=== PATIENT | male | born 1940 | race African-American/Black ===

== ENCOUNTER 2016-12-29 04:29 | Inpatient (IN) | payer OTHER, MEDICARE ==
[2016-12-29] VITALS (8 sets, daily range): BP systolic 140–164; BP diastolic 79–95; PULSE 62–88; RESP 16–18; TEMP 98–98.9; O2SAT 94–99
[~2016-12-29] VITALS: Ht 162.6 cm; Wt 95.5 kg
[~2016-12-29 04:29] MED LIST: AMLO10 PO; CLON0.2T PO; GLYB1TAB51 PO; LISI2.5T55 PO; MEVA40TA PO; PIOG30 PO; PROT40TA PO; TRAM50 PO; VITA-13 PO
[2016-12-29 05:24] LABS: AUTOMATED NEUTROPHIL # 3.9 TH/MM3 (1.8-7.7); BASOPHIL # 0.1 TH/MM3 (0-0.2); BASOPHIL % 1.2 % (0.0-2.0); EOSINOPHIL # 0.6 TH/MM3 (0-0.4); EOSINOPHIL % 7.7 % (0.0-4.0); LYMPH % 25.6 % (9.0-44.0); MEAN CELL VOLUME 85.1 FL (80.0-100.0); MEAN CORPUSCULAR HEMOGLOBIN 29.1 PG (27.0-34.0); MEAN CORPUSCULAR HGB CONC 34.2 % (32.0-36.0); MONO % 14.8 % (0.0-8.0); NEUT % 50.7 % (16.0-70.0); PLATELET COUNT 150 TH/MM3 (150-450); RED BLOOD COUNT 4.93 MIL/MM3 (4.50-5.90); RED CELL DISTRIBUTION WIDTH 14.4 % (11.6-17.2); WHITE BLOOD COUNT 7.8 TH/MM3 (4.0-11.0)
[2016-12-29 05:30] LABS: HEMO FLAGS AUTO DIFF
[2016-12-29 05:48] LABS: CREATINE KINASE 272 U/L (39-308)
[2016-12-29 05:54] LABS: ANION GAP 9 MEQ/L (5-15); BICARBONATE 25.2 MEQ/L (21.0-32.0); BLOOD UREA NITROGEN 22 MG/DL (7-18); CHLORIDE 106 MEQ/L (98-107); GLOMERULAR FILTRATION RATE 48 ML/MIN (>89); POTASSIUM 4.3 MEQ/L (3.5-5.1); SODIUM (NA) 140 MEQ/L (136-145)
[2016-12-29 05:56] LABS: APTT (PATIENT) 63.4 SEC (24.3-30.1); PROTHROMBIN TIME - PATIENT 96.8 SEC (9.8-11.6)
[2016-12-29 06:00] LABS: CKMB 3.1 NG/ML (0.5-3.6)
[2016-12-29 06:05] LABS: PLATELET ESTIMATE SMEAR LOW (NORMAL); PLATELET MORPHOLOGY NORMAL (NORMAL); SCAN/DIFF AUTO DIFF CONFIRMED
[2016-12-29] MEDS ORDERED: AMLO10 PO (06:13)
[2016-12-29] MEDS ORDERED: TRAM50TA PO (06:13)
[2016-12-29] MEDS ORDERED: CLON0.2T PO (06:13)
[2016-12-29] MEDS ORDERED: GLYB5TAB3 PO (06:13)
[2016-12-29] MEDS ORDERED: LOVA40TA PO (06:13)
--- NOTE | 2016-12-29 06:37 | PD ---
HPI Chief Complaint: Cardiac Complaint Time Seen by Provider: 06:24 Travel History International Travel<30 days: No Contact w/Intl Traveler<30days: No Traveled to known affect area: No History of Present Illness HPI The patient is 76 years old. He arrives due to irregular heart rhythm identified by a visiting nurse at home couple days ago. He reports a tightness in his chest. He also reports dyspnea on exertion for the past few days. States the chest pain has been intermittent for about 3 weeks. This progressively worsened. His level of activity has been normal lately, frequently taking his grandchildren to school and watching them at times. He's had no fever or cough. He denies taking any blood thinner. PFSH Past Medical History Arthritis: Yes Cancer: No Cardiovascular Problems: Yes High Cholesterol: Yes Diabetes: Yes (TRADJENTA/GLIMEPIRIDE) Patient Takes Glucophage: No Diminished Hearing: No Diverticulitis: Yes Endocrine: Yes Genitourinary: Yes (OCCASSIONAL BURNING WHEN VOIDING) Hypertension: Yes Immune Disorder: No Implanted Vascular Access Dvce: No Musculoskeletal: Yes Neurologic: Yes Psychiatric: Yes (CLAUSTROPHOBIA) Reproductive: No Respiratory: Yes Immunizations Current: No Sleep Apnea: Yes (C PAP) Past Surgical History Abdominal Surgery: Yes (COLON RESECTION R/T DIVERTICULITIS ) Joint Replacement: Yes (LEFT KNEE) Other Surgery: Yes Social History Alcohol Use: No Tobacco Use: No Substance Use: No Allergies-Medications (Allergen,Severity, Reaction): Coded Allergies: Codeine (Verified Allergy, Severe, 12/29/16) Reported Meds & Prescriptions Reported Meds & Active Scripts Active Reported Norvasc (Amlodipine Besylate) 10 Mg Tab 10 Mg PO DAILY Tramadol (Tramadol HCl) 50 Mg Tab 50 Mg PO Q6H PRN Lovastatin 40 Mg Tab 40 Mg PO DAILY Glyburide 5 Mg Tab 5 Mg PO BID Take with meals at the same time each day Clonidine (Clonidine HCl) 0.2 Mg Tab 0.2 Mg PO BID Review of Systems Except as stated in HPI: all other systems reviewed are Neg Physical Exam Narrative GENERAL: 76 yo M, WNWD, pleasant, NAD SKIN: Warm and dry. HEAD: Atraumatic. Normocephalic. EYES: Pupils equal and round. No scleral icterus. No injection or drainage. ENT: No nasal bleeding or discharge. Mucous membranes pink and moist. NECK: Trachea midline. No JVD. CARDIOVASCULAR: Irregular rhythm. Normal rate. RESPIRATORY: No accessory muscle use. Clear to auscultation. Breath sounds equal bilaterally. GASTROINTESTINAL: Abdomen soft, non-tender, nondistended. Hepatic and splenic margins not palpable. MUSCULOSKELETAL: Extremities without clubbing, cyanosis, or edema. No obvious deformities. NEUROLOGICAL: Awake and alert. No obvious cranial nerve deficits. Motor grossly within normal limits. Five out of 5 muscle strength in the arms and legs. Normal speech. PSYCHIATRIC: Appropriate mood and affect; insight and judgment normal. Data Data Last Documented VS Vital Signs Date Time Temp Pulse Resp B/P Pulse Ox O2 Delivery O2 Flow Rate FiO2 12/29/16 07:22 62 16 157/91 97 Room Air 12/29/16 04:33 98.0 VS reviewed Orders Electrocardiogram (12/29/16 04:49) Complete Blood Count With Diff (12/29/16 04:49) Basic Metabolic Panel (Bmp) (12/29/16 04:49) Ckmb (Isoenzyme) Profile (12/29/16 04:49) Troponin I (12/29/16 04:49) Chest, Single Ap (12/29/16 04:49) Coag Profile (12/29/16 04:49) CKMB (12/29/16 05:14) CKMB% (12/29/16 05:14) B-Type Natriuretic Peptide (12/29/16 06:39) Hepatic Functional Panel (12/29/16 07:33) Labs Laboratory Tests Test 12/29/16 12/29/16 05:14 06:51 White Blood Count 7.8 TH/MM3 Red Blood Count 4.93 MIL/MM3 Hemoglobin 14.4 GM/DL Hematocrit 42.0 % Mean Corpuscular Volume 85.1 FL Mean Corpuscular Hemoglobin 29.1 PG Mean Corpuscular Hemoglobin 34.2 % Concent Red Cell Distribution Width 14.4 % Platelet Count 150 TH/MM3 Mean Platelet Volume 8.5 FL Neutrophils (%) (Auto) 50.7 % Lymphocytes (%) (Auto) 25.6 % Monocytes (%) (Auto) 14.8 % Eosinophils (%) (Auto) 7.7 % Basophils (%) (Auto) 1.2 % Neutrophils # (Auto) 3.9 TH/MM3 Lymphocytes # (Auto) 2.0 TH/MM3 Monocytes # (Auto) 1.1 TH/MM3 Eosinophils # (Auto) 0.6 TH/MM3 Basophils # (Auto) 0.1 TH/MM3 CBC Comment AUTO DIFF Differential Comment AUTO DIFF CONFIRMED Platelet Estimate LOW Platelet Morphology Comment NORMAL Red Cell Morphology Comment NORMAL Prothrombin Time 96.8 SEC Prothromb Time International 8.0 RATIO Ratio Activated Partial 63.4 SEC Thromboplast Time Sodium Level 140 MEQ/L Potassium Level 4.3 MEQ/L Chloride Level 106 MEQ/L Carbon Dioxide Level 25.2 MEQ/L Anion Gap 9 MEQ/L Blood Urea Nitrogen 22 MG/DL Creatinine 1.68 MG/DL Estimat Glomerular Filtration 48 ML/MIN Rate Random Glucose 231 MG/DL Calcium Level 9.7 MG/DL Total Creatine Kinase 272 U/L Creatine Kinase MB 3.1 NG/ML Troponin I 0.03 NG/ML B-Type Natriuretic Peptide 207 PG/ML MDM Medical Decision Making Medical Screen Exam Complete: Yes Emergency Medical Condition: Yes Medical Record Reviewed: Yes Differential Diagnosis NSTEMI, unstable angina, coronary vasospasm, PE, PTX, aortic dissection, pericarditis, myocarditis, endocarditis, PNA, esophageal disease, aneurysm, musculoskeletal etiologies, anxiety, cocaine/sympathomimetic abuse Narrative Course CBC & BMP Diagram 12/29/16 05:14 INR is 8.0 and the patient does not take Coumadin BMP has been added on given the complaints of dyspnea on exertion The troponin is 0.03 The EKG reveals patient fibrillation with a rate of about 55 Oncoming provider to follow-up the repeat INR as well as the BNP and disposition the patient appropriately with plan for admission. Pravin Ray MD Dec 29, 2016 06:37
--- NOTE | 2016-12-29 06:40 | RADRPT ---
EXAM DATE/TIME: 12/29/2016 06:24 [facility] COMPARISON: CHEST SINGLE AP, January 15, 2010, 12:09. INDICATIONS : Chest pain. MEDICAL HISTORY : Diabetes. SURGICAL HISTORY : None. ENCOUNTER: Initial ACUITY: 1 day PAIN SCORE: 0/10 LOCATION: Bilateral chest FINDINGS: Cardiomegaly and degenerative changes of the spine. No consolidation identified. No effusions. CONCLUSION: No significant change has occurred. Cameron Swenson MD on December 29, 2016 at 6:37 Board Certified Radiologist. This report was verified electronically.
[2016-12-29 09:24] LABS: INDIRECT BILIRUBIN 0.2 MG/DL (0.0-0.8); TOTAL BILIRUBIN ADULT 0.4 MG/DL (0.2-1.0)
--- NOTE | 2016-12-29 09:28 | PD ---
Data Data Last Documented VS Vital Signs Date Time Temp Pulse Resp B/P Pulse Ox O2 Delivery O2 Flow Rate FiO2 12/29/16 08:20 62 16 152/79 97 Room Air 12/29/16 04:33 98.0 Orders Electrocardiogram (12/29/16 04:49) Complete Blood Count With Diff (12/29/16 04:49) Basic Metabolic Panel (Bmp) (12/29/16 04:49) Ckmb (Isoenzyme) Profile (12/29/16 04:49) Troponin I (12/29/16 04:49) Chest, Single Ap (12/29/16 04:49) Coag Profile (12/29/16 04:49) CKMB (12/29/16 05:14) CKMB% (12/29/16 05:14) B-Type Natriuretic Peptide (12/29/16 06:39) Hepatic Functional Panel (12/29/16 07:33) Prothrombin Time / Inr (Pt) (12/29/16 09:28) Labs Laboratory Tests Test 12/29/16 12/29/16 05:14 06:51 White Blood Count 7.8 TH/MM3 Red Blood Count 4.93 MIL/MM3 Hemoglobin 14.4 GM/DL Hematocrit 42.0 % Mean Corpuscular Volume 85.1 FL Mean Corpuscular Hemoglobin 29.1 PG Mean Corpuscular Hemoglobin 34.2 % Concent Red Cell Distribution Width 14.4 % Platelet Count 150 TH/MM3 Mean Platelet Volume 8.5 FL Neutrophils (%) (Auto) 50.7 % Lymphocytes (%) (Auto) 25.6 % Monocytes (%) (Auto) 14.8 % Eosinophils (%) (Auto) 7.7 % Basophils (%) (Auto) 1.2 % Neutrophils # (Auto) 3.9 TH/MM3 Lymphocytes # (Auto) 2.0 TH/MM3 Monocytes # (Auto) 1.1 TH/MM3 Eosinophils # (Auto) 0.6 TH/MM3 Basophils # (Auto) 0.1 TH/MM3 CBC Comment AUTO DIFF Differential Comment AUTO DIFF CONFIRMED Platelet Estimate LOW Platelet Morphology Comment NORMAL Red Cell Morphology Comment NORMAL Prothrombin Time 96.8 SEC Prothromb Time International 8.0 RATIO Ratio Activated Partial 63.4 SEC Thromboplast Time Sodium Level 140 MEQ/L Potassium Level 4.3 MEQ/L Chloride Level 106 MEQ/L Carbon Dioxide Level 25.2 MEQ/L Anion Gap 9 MEQ/L Blood Urea Nitrogen 22 MG/DL Creatinine 1.68 MG/DL Estimat Glomerular Filtration 48 ML/MIN Rate Random Glucose 231 MG/DL Calcium Level 9.7 MG/DL Total Bilirubin 0.4 MG/DL Direct Bilirubin 0.2 MG/DL Indirect Bilirubin 0.2 MG/DL Aspartate Amino Transf 16 U/L (AST/SGOT) Alanine Aminotransferase 27 U/L (ALT/SGPT) Alkaline Phosphatase 124 U/L Total Creatine Kinase 272 U/L Creatine Kinase MB 3.1 NG/ML Troponin I 0.03 NG/ML Total Protein 7.4 GM/DL Albumin 3.5 GM/DL B-Type Natriuretic Peptide 207 PG/ML MDM Supervised Visit with [place]: No Narrative Course This 76-year-old male presents to the emergency department complaining of tightness in his chest, dyspnea on exertion, and irregular heart rate. Initially seen by Dr. Ray and signed out to me to follow-up on the results of diagnostic testing. EKG shows atrial fibrillation. This is new for the patient. No significant change. Labs are remarkable for an elevated INR. Patient is emphatic that he does not take any blood thinners. He is able to name all of his medications. We'll recheck INR. Patient will be admitted for serial cardiac enzymes, and further evaluation for chest pain and dyspnea on exertion. INR may be spurious. Liver tests are unremarkable. Diagnosis Primary Impression: Chest pain Additional Impression: Dyspnea on exertion Nraayan Lucero MD Dec 29, 2016 09:28
[2016-12-29] MEDS: METOPROLOL TARTRATE 25 MG TAB PO SCH ×2 (10:00→22:01)
[2016-12-29] MEDS ORDERED: SODIUM CHLORIDE 0.9% FLUSH 10 ML FLUSH IVF PRN (10:00)
[2016-12-29] MEDS: ASPIRIN 81 MG CHEW TAB PO SCH (10:00)
[2016-12-29] MEDS ORDERED: NITROGLYCERIN 0.4 MG SL 25 TABS/BTL SL PRN (10:00)
[2016-12-29] MEDS ORDERED: MORPHINE SULFATE 4 MG/ML INJ IV PRN (10:00)
[2016-12-29 10:07] LABS: INTERNATIONAL NORMALIZED RATIO 1.1 RATIO
[2016-12-29] MEDS: SODIUM CHLOR 0.9% 1000 ML INJ 1,000 ML IV SCH ×2 (10:35→21:55)
[2016-12-29] MEDS: NITROGLYCERIN 2% OINT 1 GM PACKET TOP SCH ×3 (12:00→23:52)
[2016-12-29] MEDS ORDERED: DEXTROSE 50% IN WATER 50 ML VIAL(D50) IV PUSH PRN ×2 (12:45→17:30)
[2016-12-29] MEDS ORDERED: GLUCAGON 1 MG/ML VIAL OTHER PRN ×2 (12:45→17:30)
[2016-12-29] MEDS ORDERED: REGADENOSON INJ 0.4 MG/5 ML SYR ONE (13:48)
--- NOTE | 2016-12-29 13:56 | HHI.HP ---
[facility] Primary Care Physician Rena Cárdenas MD Admission Diagnosis chest pain, dyspnea on exertion Diagnoses: Chief Complaint: Chest pain Travel History International Travel<30 Days: No Contact w/Intl Traveler <30 Da: No Traveled to Known Affected Are: No History of Present Illness This is a 76-year-old male with a past medical history of hypertension, type 2 diabetes, and hyperlipidemia who presented with chest pain. Patient stated that he was seen prior and clinic and stated that he complained about having severe tremors when he does not eat for days. Patient stated that he wouldn't eat for days and it would have tremors that improved with by mouth intake. Patient stated that when this happens he would have chest pain and chest pain usually resolves with food. Chest pain has been intermittent with these episodes but he stated that today it was longer. Patient stated that it had occurred since yesterday and had not resolved. Patient stated he took some aspirin and medication for his headache which did help the chest pain. He stated nothing made the chest pain worse. Chest pain was nonradiating and he rated it about 3 out of 10 at the moment. He denies any nausea vomiting or diaphoresis with this chest pain. Patient also stated that he presented to the emergency department because he was told by his nurse that he had atrial fibrillation that we discover a week ago and asked why he is here. Patient stated that he has no family history of cardiovascular disease but does admit that almost all family members have diabetes. Patient stated he stopped smoking cigar 15 years ago. Review of Systems Constitutional: DENIES: Diaphoretic episodes, Fatigue, Fever, Weight gain, Weight loss, Chills, Dizziness, Change in appetite, Night Sweats Endocrine: DENIES: Heat/cold intolerance, Polydipsia, Polyuria, Polyphagia Eyes: DENIES: Blurred vision, Diplopia, Eye inflammation, Eye pain, Vision loss , Photosensitivity, Double Vision Ears, nose, mouth, throat: DENIES: Tinnitus, Hearing loss, Vertigo, Nasal discharge, Oral lesions, Throat pain, Hoarseness, Ear Pain, Running Nose, Epistaxis, Sinus Pain, Toothache, Odynophagia Respiratory: DENIES: Apneas, Cough, Snoring, Wheezing, Hemoptysis, Sputum production, Shortness of breath Cardiovascular: COMPLAINS OF: Chest pain, DENIES: Palpitations, Syncope, Dyspnea on Exertion, PND, Lower Extremity Edema, Orthopnea, Claudication Gastrointestinal: DENIES: Abdominal pain, Black stools, Bloody stools, Constipation, Diarrhea, Nausea, Vomiting, Difficulty Swallowing, Anorexia Genitourinary: DENIES: Sexual dysfunction, Urinary frequency, Urinary incontinence, Urgency, Hematuria, Dysuria, Nocturia, Penile Discharge, Testicular Pain, Testicular Swelling Musculoskeletal: DENIES: Joint pain, Muscle aches, Stiffness, Joint Swelling, Back pain, Neck pain Integumentary: DENIES: Abnormal pigmentation, Nail changes, Pruritus, Rash Hematologic/lymphatic: DENIES: Bruising, Lymphadenopathy Immunologic/allergic: DENIES: Eczema, Urticaria Neurologic: DENIES: Abnormal gait, Headache, Localized weakness, Paresthesias, Seizures, Speech Problems, Tremor, Poor Balance Psychiatric: DENIES: Anxiety, Confusion, Mood changes, Depression, Hallucinations, Agitation, Suicidal Ideation, Homicidal Ideation, Delusions Past Family Social History Past Medical History Hyperlipidemia, type 2 diabetes, hypertension, osteoarthritis, history diverticulitis Past Surgical History vasectomy Partial colectomy due to diverticulitis Reported Medications Reported Meds & Active Scripts Active Reported Norvasc (Amlodipine Besylate) 10 Mg Tab 10 Mg PO DAILY Tramadol (Tramadol HCl) 50 Mg Tab 50 Mg PO Q6H PRN Lovastatin 40 Mg Tab 40 Mg PO DAILY Glyburide 5 Mg Tab 5 Mg PO BID Take with meals at the same time each day Clonidine (Clonidine HCl) 0.2 Mg Tab 0.2 Mg PO BID Allergies: Coded Allergies: Codeine (Verified Allergy, Severe, 12/29/16) Active Ordered Medications Current Medications Sodium Chloride (NS Flush) 2 ml BID IV FLUSH ; Start 12/29/16 at 21:00 Sodium Chloride (NS Flush) 2 ml UNSCH PRN IVF FLUSH AFTER USING IV ACCESS; Start 12/29/16 at 10:00 Aspirin (Aspirin Chew) 162 mg DAILY PO ; Start 12/29/16 at 10:00 Metoprolol Tartrate (Lopressor) 25 mg BID PO ; Start 12/29/16 at 10:00 Nitroglycerin (Nitroglycerin 2% Oint) 0.5 inch Q6HR TOP ; Start 12/29/16 at 12: 00 Nitroglycerin (Nitrostat Sl) 0.4 mg Q5M PRN SL ANGINA; Start 12/29/16 at 10:00 Morphine Sulfate 2 mg 2 mg Q5M PRN IV PAIN SCALE 6 TO 10; Start 12/29/16 at 10: 00 Sodium Chloride (NS 1000 ml Inj) 1,000 ml @ 84 mls/hr [id number] IV Last administered on 12/29/16t 10:35; Start 12/29/16 at 10:00 Amlodipine Besylate (Norvasc) 10 mg DAILY PO ; Start 12/30/16 at 09:00 Clonidine (Catapres) 0.2 mg BID PO ; Start 12/29/16 at 21:00 Pravastatin Sodium (Pravachol) 40 mg DAILY PO ; Start 12/30/16 at 09:00 Tramadol HCl (Ultram) 50 mg Q6H PRN PO PAIN; Start 12/29/16 at 12:45 Dextrose (D50w (Vial) Inj) 25 ml UNSCH PRN IV PUSH HYPOGLYCEMIA-SEE COMMENTS; Start 12/29/16 at 12:45 Glucagon (Glucagon Inj) 1 mg UNSCH PRN OTHER HYPOGLYCEMIA-SEE COMMENTS; Start 12/29/16 at 12:45 Regadenoson (Lexiscan Inj) 0.4 mg STK-MED ONCE .ROUTE ; Start 12/29/16 at 13:48 ; Stop 12/29/16 at 13:49; Status DC Family History Multiple family members with diabetes. No family history of cardiovascular disease or any cancer. Social History Denies any tobacco, alcohol, or illicit drug use. Physical Exam Vital Signs Vital Signs Date Time Temp Pulse Resp B/P Pulse Ox O2 Delivery O2 Flow Rate FiO2 12/29/16 11:20 79 16 164/95 97 Room Air 12/29/16 08:20 62 16 152/79 97 Room Air 12/29/16 07:22 62 16 157/91 97 Room Air 12/29/16 06:13 88 18 146/81 99 Room Air 12/29/16 04:33 98.0 79 16 141/80 99 Room Air Physical Exam GENERAL: This is a well-nourished, well-developed patient, in no apparent distress. SKIN: No rashes, ecchymoses or lesions. Cool and dry. HEAD: Atraumatic. Normocephalic. No temporal or scalp tenderness. EYES: Pupils equal round and reactive. Extraocular motions intact. No scleral icterus. No injection or drainage. ENT: Nose without bleeding, purulent drainage or septal hematoma. Throat without erythema, tonsillar hypertrophy or exudate. Uvula midline. Airway patent. NECK: Trachea midline. No JVD or lymphadenopathy. Supple, nontender, no meningeal signs. CARDIOVASCULAR: Regular rate and rhythm without murmurs, gallops, or rubs. RESPIRATORY: Clear to auscultation. Breath sounds equal bilaterally. No wheezes , rales, or rhonchi. GASTROINTESTINAL: Abdomen soft, non-tender, nondistended. No hepato-splenomegaly , or palpable masses. No guarding. MUSCULOSKELETAL: Extremities without clubbing, cyanosis, or edema. No joint tenderness, effusion, or edema noted. No calf tenderness. Negative Homans sign bilaterally. NEUROLOGICAL: Awake and alert. Cranial nerves II through XII intact. Motor and sensory grossly within normal limits. Five out of 5 muscle strength in all muscle groups. Normal speech. Laboratory Laboratory Tests Test 12/29/16 12/29/16 12/29/16 05:14 06:51 09:40 White Blood Count 7.8 Red Blood Count 4.93 Hemoglobin 14.4 Hematocrit 42.0 Mean Corpuscular Volume 85.1 Mean Corpuscular Hemoglobin 29.1 Mean Corpuscular Hemoglobin 34.2 Concent Red Cell Distribution Width 14.4 Platelet Count 150 Mean Platelet Volume 8.5 Neutrophils (%) (Auto) 50.7 Lymphocytes (%) (Auto) 25.6 Monocytes (%) (Auto) 14.8 Eosinophils (%) (Auto) 7.7 Basophils (%) (Auto) 1.2 Neutrophils # (Auto) 3.9 Lymphocytes # (Auto) 2.0 Monocytes # (Auto) 1.1 Eosinophils # (Auto) 0.6 Basophils # (Auto) 0.1 CBC Comment AUTO DIFF Differential Comment AUTO DIFF CONFIRMED Platelet Estimate LOW Platelet Morphology Comment NORMAL Red Cell Morphology Comment NORMAL Prothrombin Time 96.8 12.0 Prothromb Time International 8.0 1.1 Ratio Activated Partial 63.4 Thromboplast Time Sodium Level 140 Potassium Level 4.3 Chloride Level 106 Carbon Dioxide Level 25.2 Anion Gap 9 Blood Urea Nitrogen 22 Creatinine 1.68 Estimat Glomerular Filtration 48 Rate Random Glucose 231 Calcium Level 9.7 Total Bilirubin 0.4 Direct Bilirubin 0.2 Indirect Bilirubin 0.2 Aspartate Amino Transf 16 (AST/SGOT) Alanine Aminotransferase 27 (ALT/SGPT) Alkaline Phosphatase 124 Total Creatine Kinase 272 Creatine Kinase MB 3.1 Troponin I 0.03 Total Protein 7.4 Albumin 3.5 B-Type Natriuretic Peptide 207 Result Diagram: 12/29/16 0514 12/29/16 0514 Imaging Last Impressions Chest X-Ray 12/29/16 0449 Signed Impressions: Service Date/Time: , December 29, 2016 06:24 - CONCLUSION: No significant change has occurred. Cameron Swenson MD Assessment and Plan Assessment and Plan 76-year-old male past medical history of type 2 diabetes, hypertension, hyperlipidemia who presented with Atypical chest pain -May be secondary to GERD since there seemed to be association with food. First troponin negative. Will get 2 more sets of troponin. Due to patient being high risk will get a nuclear stress test and ECHO. -Will give patient aspirin and metoprolol. nitro and morphine PRN. Atrial fibrillation, persistent -Patient has been in A. fib for least 1 week. -[id number] score if 4. He would benefit from anticoagulation based on his score. Educated patient extensively on the risks, benefits, and side effects of anticoagulations in decreasing risk of cardioembolic stroke. Patient stated that he understands and he would like to pursue treatment. Options were discussed with patient and he stated that he would like a medication that he would not have to monitor. -once stress test completed and no intervention needed will start Eliquis. Elevated INR -Patient is not on any medication or does not show any signs of liver failure that would cause an elevated INR. INR was repeated and it was in normal range. most likely a lab mistake. Type 2 diabetes -Educated patient extensively on the consistency of diet. Since patient stated that he wouldn't eat for days and then when he developed tremors he would start eating a lot of food. Most likely during this time he is becoming hypoglycemic. -Will get hemoglobin A1c. Continue home regimen and put patient on insulin sliding scale. Hyperlipidemia/hypertension/os arthritis -Resume home medication. -Will get a lipid panel in the a.m. DVT prophylaxis -lovenox Code Status full Discussed Condition With Discussed with patient, his brother, and his mother. If studies are negative patient can be discharged home tomorrow. Omayra Rivas MD Dec 29, 2016 13:56 Omayra Rivas MD Dec 29, 2016 13:56
--- NOTE | 2016-12-29 16:15 | RADRPT ---
EXAM DATE/TIME: 12/29/2016 12:35 [facility] COMPARISON: No previous studies available for comparison. INDICATIONS : Substernal chest pain with dyspnea for 3 weeks. Atrial fibrillation. DOSE: 27.2 mCi Tc99m Myoview at stress. 8.6 mCi Tc99m Myoview at rest. 0.4 mg Lexiscan STRESS SYMPTOMS: Dyspnea. EJECTION FRACTION: 53% MEDICAL HISTORY : Hypercholesterolemia. Hypertension. Diabetes mellitus type 2. SURGICAL HISTORY : Total knee replacement, right. Colon resection. ENCOUNTER: Initial ACUITY: 3 weeks PAIN SCALE: 5/10 LOCATION: Substernal chest TECHNIQUE: The patient underwent pharmacologic stress with infusion of prescribed dose. Continuous ECG tracing was monitored during stress. Gated SPECT imaging was performed after stress and conventional SPECT i maging was performed at rest. The examination was performed on a SPECT/CT scanner, both attenuation and non-corrected datasets were reviewed. FINDINGS: DISTRIBUTION: The maximum perfused segment at stress is in the septal wall. PERFUSION STUDY: The pattern of perfusion at stress shows fixed diminished perfusion to the inferolateral wall with ar eas of 20% redistribution in portions of the inferior wall. GATED STUDY: There is intact wall motion and thickening without hypokinetic or dyskinetic segments. CONCLUSION: 1. Differential perfusion defect in the low inferior lateral wall characteristic of an old watershed infarct. 2. Focal areas of about 20% redistribution in portions of the inferior wall concerning for ischemia. 3. Preserved wall motion with estimated ejection fraction of 53%. RISK CATEGORY: Low (<1% Annual Mortality Rate) Miguel Spence MD on December 29, 2016 at 16:02 Board Certified Radiologist. This report was verified electronically.
[2016-12-29] MEDS ORDERED: ENOXAPARIN SODIUM 40 MG/0.4 ML SYRINGE SQ SCH (17:30)
[2016-12-29] MEDS ORDERED: ENOXAPARIN SODIUM 30 MG/0.3 ML SYRINGE SQ SCH (18:00)
--- NOTE | 2016-12-29 20:00 | EC ---
Study Study Date:12/29/2016 STUDY CONCLUSIONS SUMMARY - Procedure narrative: Transthoracic echocardiography. Image quality was poor. The study was technically limited due to poor acoustic window availability. Extremely difficult to full assess function or valvulopathies. - Left ventricle: In limited views, the ejection fraction is probably normal or near normal. Poorly visualized. Regional wall motion abnormalities cannot be excluded. - Aortic valve: Trace regurgitation. - Mitral valve: Mild regurgitation. - Tricuspid valve: Mild regurgitation. If LV function is below 40, please consider prescribing an ACEI or ARB or document rationale for non-use. PROCEDURE DATA STUDY STATUS: Elective. Procedure: Transthoracic echocardiography. Image quality was poor. The study was technically limited due to poor acoustic window availability. Scanning was performed from the parasternal, apical, and subcostal acoustic windows. Study completion: The patient tolerated the procedure well. Transthoracic echocardiography. M-mode, complete 2D, complete spectral Doppler, and color Doppler. Height: Height: 64in. Weight: Weight: 210.6lb. Body mass index: BMI: 36.2kg/m^2. Body surface area: BSA: 2m^2. Patient status: Inpatient. CARDIAC ANATOMY LEFT VENTRICLE: In limited views, the ejection fraction is probably normal or near normal. Poorly visualized. Regional wall motion abnormalities cannot be excluded. AORTIC VALVE: Not well visualized. Doppler: There was no stenosis. Trace regurgitation. Valve area: 1.55cm^2 (Vmax). Indexed valve area: 0.78cm^2/m^2 (Vmax). Peak gradient: 21mm Hg (S). MITRAL VALVE: Poorly visualized. Doppler: There was no evidence for stenosis. Mild regurgitation. RIGHT VENTRICLE: Poorly visualized. PULMONIC VALVE: Poorly visualized. TRICUSPID VALVE: Poorly visualized. Doppler: There was no evidence for stenosis. Mild regurgitation. Patient weight: 210.6lb _Ejection fraction:_ 65-75% _Fractional shortening:_ 32% up to 5Kg 5-11.5Kg 11.6-22.9Kg 23-45Kg 45-57Kg Aortic Root 7-13 <17 13-22 17-27 17-27 LA diam 6-13 <23 24-38 33-47 37-40 RVID 10-17 7-15 7-15 7-18 8-17 LVIDd 12-22 <32 24-38 33-47 37-40 LVPW 2-4 3-6 5-7 6-8 7-8 IVS 2-4 3-6 5-7 6-8 7-8 BASIC MEASUREMENTS ADULT NORMAL Left ventricle LV internal dimension, ED, chordal 50.6 mm 43-52 level, PLAX LV internal dimension, ES, chordal 36.8 mm 23-38 level, PLAX Fractional shortening, chordal level, *27 % >29 PLAX LV posterior wall thickness, ED 11.3 mm IVS/LVPW ratio, ED 1.04 <1.3 Ventricular septum Septal thickness, ED 11.8 mm Aortic valve Leaflet separation 18 mm 15-26 BASIC MEASUREMENTS ADULT NORMAL Aortic valve Leaflet separation 18 mm 15-26 Aorta Root diameter, ED 35 mm 20-37 Left atrium Anterior-posterior dimension, ES *53 mm 19-40 Anterior-posterior dimension index, ES *2.65 cm/m^2 <2.2 LA/aortic root ratio 1.51 DOPPLER MEASUREMENTS ADULT NORMAL Main pulmonary artery Pressure, S *36 mm Hg =30 Aortic valve Peak velocity, S 229 cm/s Peak gradient, S 21 mm Hg Valve area, Vmax 1.55 cm^2 Valve area index, Vmax 0.78 cm^2/m^2 Regurgitant velocity, ED 244 cm/s Regurgitant deceleration 624 cm/s^2 Regurgitant pressure half-time 1145 ms Regurgitant gradient, ED 24 mm Hg Mitral valve Maximal regurgitant velocity 343 cm/s Tricuspid valve Regurgitant peak velocity 281 cm/s Peak RV-RA gradient, S 32 mm Hg Maximal regurgitant velocity 281 cm/s Systemic veins Estimated CVP 10 mm Hg Right ventricle RV pressure, S *42 mm Hg <30 Pulmonic valve Peak velocity, S 126 cm/s LEGEND: Mean values are shown as u=mean value. Asterisk (*) ray values outside specified normal range. Prepared and signed by Zohaib Ray [id number]
[2016-12-29] MEDS ORDERED: cloNIDine HCL 0.2 MG TAB PO SCH (21:00)
[2016-12-29] MEDS: INSULIN ASPART SUPPLEMENTAL SCALE SQ SCH ×2 (21:00→22:02)
[2016-12-29] MEDS: SODIUM CHLORIDE 0.9% FLUSH 10 ML FLUSH IV FLUSH SCH (21:00)
--- NOTE | 2016-12-29 21:10 | EKG ---
Date Performed: 12/29/2016 Time Performed: 04:56:25 PTAGE: 76 years EKG: LIKELY ATRIAL FIBRILLATION Wandering baseline artifact. MARKED LEFT AXIS DEVIATION LOW QRS VOLTAGE IN EXTREMITY LEADS ANTEROSEPTAL MYOCARDIAL INFARCTION. ABNORMAL ECG PREVIOUS TRACING : 01/15/2010 12.18 DOCTOR: Dexter Ceballos Interpretating Date/Time 12/29/2016 21:09:41
[2016-12-29 22:22] LABS: HEMOGLOBIN A1a 1.3 %; HEMOGLOBIN A1b 0.6 %; HEMOGLOBIN Ao 52.7 %; HEMOGLOBIN LA1C 1.7 %; HEMOGLOBIN P3 2.9 %
[2016-12-30] VITALS (12 sets, daily range): BP systolic 133–160; BP diastolic 70–98; PULSE 60–92; RESP 16–18; TEMP 98.1–99; O2SAT 93–97
[2016-12-30 03:14] LABS: HEMATOCRIT 42.2 % (39.0-51.0); MEAN CELL VOLUME 84.2 FL (80.0-100.0); MEAN CORPUSCULAR HEMOGLOBIN 28.8 PG (27.0-34.0); MEAN CORPUSCULAR HGB CONC 34.3 % (32.0-36.0); PLATELET COUNT 172 TH/MM3 (150-450); RED BLOOD COUNT 5.01 MIL/MM3 (4.50-5.90); RED CELL DISTRIBUTION WIDTH 14.2 % (11.6-17.2); REVIEW FLAG FINAL; WHITE BLOOD COUNT 8.1 TH/MM3 (4.0-11.0)
[2016-12-30 03:24] LABS: BICARBONATE 24.9 MEQ/L (21.0-32.0); POTASSIUM 4.4 MEQ/L (3.5-5.1)
[2016-12-30 03:26] LABS: HDL CHOLESTEROL 35.7 MG/DL (40.0-60.0)
[2016-12-30] MEDS ORDERED: ENALAPRILAT 2.5 MG/2 ML VIAL IV PUSH PRN (05:15)
[2016-12-30] MEDS: NITROGLYCERIN 2% OINT 1 GM PACKET TOP SCH ×4 (06:30→23:38)
[2016-12-30] MEDS: SODIUM CHLOR 0.9% 1000 ML INJ 1,000 ML IV SCH ×5 (06:45→22:07)
[2016-12-30] MEDS: INSULIN ASPART SUPPLEMENTAL SCALE SQ SCH ×4 (06:49→21:00)
[2016-12-30] MEDS: ASPIRIN 81 MG CHEW TAB PO SCH (07:27)
[2016-12-30] MEDS ORDERED: DIAZEPAM 5 MG TAB PO SCH (07:30)
[2016-12-30] MEDS ORDERED: diphenhydrAMINE HCL 50 MG/ML VIAL IV SCH (07:30)
[2016-12-30] MEDS ORDERED: HEPARIN-NS/PF INJ 500 ML ONE (07:42)
[2016-12-30] MEDS ORDERED: MIDAZOLAM HCL 2 MG/2 ML VIAL ONE (07:43)
[2016-12-30] MEDS: METOPROLOL TARTRATE 25 MG TAB PO SCH ×2 (09:00→22:00)
[2016-12-30] MEDS: PRAVASTATIN SOD 40 MG TAB PO SCH (09:00)
[2016-12-30] MEDS ORDERED: IOHEXOL 350 MG/ML 100 ML BTL (for Cath Lab) OTHER ONE (09:15)
[2016-12-30] MEDS ORDERED: ONDANSETRON HCL 4 MG/2 ML VIAL IV PRN (09:30)
--- NOTE | 2016-12-30 09:52 | MB ---
cc: LA PEREZ M.D. DATE OF CONSULTATION 12/30/2016 REASON FOR CONSULTATION Evaluation of chest pain and abnormal stress test. HISTORY Samnatha Sears is a 76-year-old man. He has a previous history of smoking which he stopped about 15 years ago. He has type 2 diabetes. He is obese. He has hypertension. He has hyperlipidemia. He had an episode where he did not eat and had hypoglycemia and developed severe substernal chest pressure. It is currently resolved. He is a little bit vague on when it actually started and stopped. It sounds like it lasted for at least a few hours. He has subsequently been ruled out for an IA. Troponins were 0.03, 0.03 and 0.04. He has undergone a nuclear stress test yesterday. Nuclear stress test shows a "differential perfusion defect in the low inferior wall characteristic of an old watershed infarct" and a focal area of about 20% redistribution in portions of the inferior wall concerning for ischemia. Wall motion was preserved with an ejection fraction of 53%. His echo was a poor imaging study due to a poor acoustic window availability. Overall, LV function appears preserved and regional wall motion abnormalities could not be assessed. He has an elevated creatinine. Initially when it came in, it was 1.68. Repeat was 1.42. He is currently receiving IV saline. He is in atrial fibrillation. Apparently that is new onset with no prior history of atrial fibrillation available and he did not come into the hospital on anticoagulation. He is not currently having chest pain. He is very concerned about the findings on stress test and he gave informed consent to me to proceed with a cardiac cath. PAST MEDICAL HISTORY Includes: 1. Hyperlipidemia 2. Type 2 diabetes 3. Hypertension 4. Arthritis 5. History of diverticulitis PAST SURGICAL HISTORY Includes: 1. Vasectomy 2. Partial colectomy due to diverticulitis. MEDICATIONS PRIOR TO ADMISSION He took: 1. Lovastatin 40 mg 2. Glyburide 3. Clonidine 4. Tramadol 5. Norvasc Here in the hospital now he is receivin. Amlodipine 10 mg daily 2. Clonidine 0.2 mg p.o. b.i.d. 3. He received 30 mg of Lovenox yesterday evening. 4. Nitro paste 1/2 inch q6h 5. Aspirin 162 mg 6. Metoprolol 25 mg p.o. b.i.d. a day SOCIAL HISTORY He is . His is Yessenia. He has a daughter as well. He worked in construction. He smoked two packs a day, but quit about 15 years ago. FAMILY HISTORY Negative for heart disease. PHYSICAL EXAM Physical exam reveals an obese, pleasant, somewhat anxious -Japanese male. VITAL SIGNS: Charted. He has been normotensive to mildly hypertensive during his stay. HEENT: Exam is unremarkable. NECK: Shows no JVD. There are no carotid bruits. CHEST: Clear to auscultation. CARDIAC: S1 and S2, regular rate and rhythm. I do not appreciate murmurs or gallops. ABDOMEN: Soft and nontender. EXTREMITIES: Reveal no clubbing, cyanosis or edema. His femoral and pedal pulses are intact. NEUROLOGIC: Appears intact and nonfocal. LABORATORY DATA BUN is 19, creatinine is 1.42, glucose 165, LDL cholesterol was 35, HDL cholesterol 35.7, triglycerides 105. Troponins were negative. His creatinine is actually down from admission, on admission it was 1.68, hematocrit is 42.2. Initial INR was 8.0. Repeated came back 1.1. It is not clear to me about his previous valve lab. Nuclear stress test has already been described. Chest x-ray report shows cardiomegaly, degenerative changes of the spine with no consolidation and no effusions. IMPRESSION A 76-year-old man with unstable angina. He has multiple risk factors for coronary artery disease. He now has had a nuclear stress test that is abnormal. PLAN He has an EKG showing atrial fibrillation. There are no ischemic changes seen on EKG. His ventricular rate appears controlled. The A. fib duration is unclear. PLAN Perform diagnostic cath with possible intervention. Informed consent have been obtained for the cath. I explained the risk of renal failure, as well as a remote risk of heart attack, etc. And he is agreeable to proceed. The procedures is been done this morning. Further therapy to be determined. MD TIMOTHY Novoa/SKYE /7:25 AM /9:37 AM
[2016-12-30] MEDS ORDERED: SODIUM CHLOR 0.9% 1000 ML INJ 1,000 ML IV SCH (10:00)
--- NOTE | 2016-12-30 10:34 | MA ---
cc: LA PEREZ M.D. DATE: 12/30/2016 PROCEDURE PERFORMED 1. Left heart catheterization. 2. Prolonged unsuccessful attempts at left ventriculography. 3. Complex and difficult coronary angiography. 4. Supravalvular aortography. 5. Right femoral angiography with uncomplicated Angio-Seal placement. DESCRIPTION OF PROCEDURE The patient was brought to the cardiac phlebotomy lab assistant in a fasting state. Using 1% lidocaine for local anesthesia a 6.5 Persian sheath was placed in the right femoral artery. There was extreme iliac tortuosity. I had difficulty engaging any catheter into the right coronary artery. I used a 3-D RC catheter, a left 1 Amplatz catheter and finally with a modified right Amplatz was able to get angiograms of the right coronary artery. The left coronary artery was visualized using a left 5 Gisele. I tried to cross the aortic valve with a pigtail catheter and a multipurpose catheter using a standard wire as well as an angled glide and was not able to get across. The aortic root is dilated and angulated off the heart: Finally I obtained a supravalvular aortogram in the TAJIK projection. At the end of the procedure angiography was obtained of the right femoral artery via the sheath followed by an uncomplicated Angio-Seal placement. There were no complications. FINDINGS HEMODYNAMICS Aortic pressure is 153/85 with a mean of 114. SUPRAVALVULAR AORTOGRAPHY The aortic valve is tricuspid. There is no aortic stenosis suspected. There is 1+ aortic regurgitation. LV function cannot be adequately assessed but appears to be overall preserved on prior echo. CORONARY ANGIOGRAPHY The left main coronary artery appears normal. It bifurcates into the LAD and circumflex vessels. The circumflex artery has an 80% proximal stenosis. The distal circumflex vessel is occluded with [id number] collaterals. The major obtuse marginal branch bifurcates. The anterior division is a smaller division and this division has 70% stenosis. The posterior division is much larger and readily graftable. It bifurcates more distally and the more posterior division of that has ostial disease that is severe. The left anterior descending artery is severely and diffusely diseased. There is 70% proximal disease and 80% mid disease after the septal biscuit packer branches. There is also disease in the apical segment of the LAD. The diagonal branches given off are small. The first diagonal branch is small with no significant stenosis. The second diagonal branch is small and has 90% disease. The right coronary artery appears dominant. This vessel has 80% proximal disease and diffuse 50% mid disease. There is moderate calcification throughout the vessel. The distal vessel appears suitable for grafting. CONCLUSIONS 1. Severe three-vessel coronary artery disease. 2. Dilated aortic root. 3. Tortuous iliac arteries. PLAN Consult Dr. Bonds for consideration of bypass. MD TIMOTHY Novoa/MESERET /9:27 AM /10:22 AM
[2016-12-30] MEDS ORDERED: SODIUM CHLORIDE 0.9% FLUSH 10 ML FLUSH IVF PRN (13:45)
[2016-12-30] MEDS ORDERED: INSULIN REGULAR (IV INFUSION) 100 UNITS in SODIUM CHLORIDE 0.9% INJ 100 ML IV SCH (13:45)
[2016-12-30] MEDS ORDERED: PAPAVERINE INJ 60 MG, NITROGLYCERIN INJ 100 MCG, DILTIAZEM INJ 100 MG in SODIUM CHLORID... IRRIGATION SCH (13:45)
[2016-12-30] MEDS ORDERED: METOPROLOL TARTRATE 25 MG TAB PO SCH (13:45)
[2016-12-30] MEDS ORDERED: ceFAZolin 2 GM PREMIX 50 ML IV SCH (13:45)
[2016-12-30] MEDS ORDERED: CHLORHEXIDINE GLUCONATE 4% SOLN 120 ML BTL TOPICAL SCH (13:45)
[2016-12-30] MEDS ORDERED: CEFAZOLIN INJ 500 MG in SODIUM CHLORIDE 0.9% IRR BTL 500 ML IRRIGATION SCH (13:45)
[2016-12-30] MEDS ORDERED: PILL SPLITTER OTHER PRN (14:15)
--- NOTE | 2016-12-30 16:07 | RADRPT ---
EXAM DATE/TIME: 12/30/2016 14:48 [facility] COMPARISON: No previous studies available for comparison. INDICATIONS : PreOp caridac surgery. MEDICAL HISTORY : Hypercholesterolemia. Hypertension. Diverticulitis. Vertigo. Sleep apnea - CPAP. Arthritis. Diabetes. Shingles. SURGICAL HISTORY : Colon resection. Right knee arthroscopy. Left total knee replacement. ENCOUNTER: Initial ACUITY: 1 day PAIN SCORE: 0/10 LOCATION: Bilateral legs. PEAK SYSTOLIC VELOCITIES (cm/sec): ICA/CCA RATIO: Right: 2.3 Left: 1.3 ICA: Right: 100 Left: 85 CCA: Right: 43 Left: 68 ECA: Right: 142 Left: 105 VERTEBRAL: Right: NOT SEEN antegrade Left: NOT SEEN antegrade Elevated flow velocities and ICA/CCA ratios have been found to correlate with increased degrees of vessel stenosis, calculated as percentage of diameter relative to a normal segment of distal ICA/CCA FINDINGS: RIGHT CAROTID: The examination demonstrates moderate atherosclerotic plaquing of the bifurcation. There is significa nt elevation of the peak systolic velocity ratio. This would suggest stenosis in the range of 50%. LEFT CAROTID: No significant stenosis is visualized. There is mild plaquing of the bifurcation. The waveforms are within normal limits. VERTEBRAL ARTERIES: The vertebral arteries were not identified. MISCELLANEOUS: None. CONCLUSION: 1. Limited examination. The vertebral arteries could not be identified. This is felt to be secondary to the patient's neck size. 2. Study would suggest at least a moderate grade stenosis in the right internal carotid origin. 3. No hemodynamically significant stenosis seen at the origin of the left internal carotid. Pravin Boyer MD on December 30, 2016 at 16:02 Board Certified Radiologist. This report was verified electronically.
--- NOTE | 2016-12-30 16:10 | RADRPT ---
EXAM DATE/TIME: 12/30/2016 15:11 [facility] COMPARISON: US CAROTID ARTERIES, December 30, 2016, 14:48. INDICATIONS : PreOp caridac surgery. MEDICAL HISTORY : Hypercholesterolemia. Hypertension. Diverticulitis. Vertigo. Sleep apnea - CPAP. Arthritis. Diabetes. Shingles. SURGICAL HISTORY : Colon resection. Right knee arthroscopy. Left total knee replacement. ENCOUNTER: Initial ACUITY: 1 day PAIN SCORE: 0/10 LOCATION: Bilateral legs. TECHNIQUE: Venous ultrasound of the left and right leg was performed from the inguinal ligament to the proximal calf. Real-time, color Doppler and spectral tracing, compression and augmentation techniques were us ed. FINDINGS: RIGHT LEG: There is normal compressibility of the deep venous system from the inguinal region to the proximal ca lf. No echogenic clot is seen in the lumen of the common femoral, femoral, popliteal, and posterior tibial veins. There is a normal response of the venous system to proximal and distal augmentation an d respiration. LEFT LEG: There is normal compressibility of the deep venous system from the inguinal region to the proximal ca lf. No echogenic clot is seen in the lumen of the common femoral, femoral, popliteal, and posterior tibial veins. There is a normal response of the venous system to proximal and distal augmentation an d respiration. CONCLUSION: 1. No DVT identified. Pravin Boyer MD on December 30, 2016 at 16:08 Board Certified Radiologist. This report was verified electronically.
--- NOTE | 2016-12-30 16:10 | RADRPT ---
EXAM DATE/TIME: 12/30/2016 15:20 [facility] COMPARISON: US LEG BILATERAL VENOUS DOPPLER, December 30, 2016, 15:11. INDICATIONS : PreOp cardiac surgery. MEDICAL HISTORY : Hypercholesterolemia. Hypertension. Diverticulitis. Vertigo. Sleep apnea - CPAP. Arthritis. Diabetes. Shingles. SURGICAL HISTORY : Colon resection. Right knee arthroscopy. Left total knee replacement. ENCOUNTER: Initial ACUITY: 1 day PAIN SCORE: 0/10 LOCATION: Bilateral legs. GREATER SAPHENOUS VEIN THIGH: PROXIMAL: Right 5 mm Left 4 mm MID: Right 2 mm Left 2 mm DISTAL: Right 2 mm Left 2 mm CALF: PROXIMAL: Right 2 mm Left 2 mm MID: Right 2 mm Left 2 mm DISTAL: Right 2 mm Left 2 mm FINDINGS: The venous system of the lower extremities are patent by color Doppler imaging. Measurements of the leg veins (in mm) are listed above. CONCLUSION: 1. No DVT identified. Size measurements are given above. Pravin Boyer MD on December 30, 2016 at 16:07 Board Certified Radiologist. This report was verified electronically.
[2016-12-30] MEDS: HEPARIN SODIUM - IV 10,000 UNITS/10 ML VIAL IV ONE ×2 (16:25→16:31)
[2016-12-30] MEDS: HEPARIN-D5W INJ 250 ML IV SCH (16:30)
[2016-12-30] MEDS: SODIUM CHLORIDE 0.9% FLUSH 10 ML FLUSH IV FLUSH SCH ×2 (16:32→21:00)
[2016-12-30 17:06] LABS: HEMOGLOBIN A1a 1.2 %; HEMOGLOBIN A1b 0.5 %; HEMOGLOBIN Ao 50.1 %; HEMOGLOBIN LA1C 1.4 %; HEMOGLOBIN P3 2.7 %
--- NOTE | 2016-12-30 18:31 | PD.CAR.PN ---
CVT Progress Note Subjective/Hospital Course: sts data discussed with pt RISK SCORES About the STS Risk Calculator Procedure: CAB Only Risk of Mortality: 2.155% Morbidity or Mortality: 21.782% Long Length of Stay: 9.926% Short Length of Stay: 27.351% Permanent Stroke: 2.063% Prolonged Ventilation: 13.786% DSW Infection: 0.798% Renal Failure: 10.023% Reoperation: 7.065% Objective: Vital Signs Date Time Temp Pulse Resp B/P Pulse Ox O2 Delivery O2 Flow Rate FiO2 12/30/16 18:03 77 12/30/16 17:00 76 12/30/16 16:00 82 12/30/16 15:00 70 12/30/16 15:00 98.1 72 16 149/98 96 12/30/16 09:41 92 Room Air 12/30/16 04:55 99.0 60 18 160/76 93 12/30/16 01:11 66 133/70 94 12/29/16 21:00 98.9 74 18 140/80 94 12/29/16 20:00 94 Result Diagram: 12/30/1623312/30/16233 Fiona Tan Dec 30, 2016 18:31
--- NOTE | 2016-12-30 18:53 | HHI.PR ---
Subjective Remarks Patient in the chair. Says he has slight chest pressure but is controlled by meds. No sob, n/v/d/c. No diaphoresis, palpitations, lightheadedness. Agrees for CABG on Monday. Objective Vitals Vital Signs Date Time Temp Pulse Resp B/P Pulse Ox O2 Delivery O2 Flow Rate FiO2 12/30/16 18:03 77 12/30/16 17:00 76 12/30/16 16:00 82 12/30/16 15:00 70 12/30/16 15:00 98.1 72 16 149/98 96 12/30/16 09:41 92 Room Air 12/30/16 04:55 99.0 60 18 160/76 93 12/30/16 01:11 66 133/70 94 12/29/16 21:00 98.9 74 18 140/80 94 12/29/16 20:00 94 I/O 12/29/16 12/29/16 12/29/16 12/30/16 12/30/16 12/30/16 07:00 15:00 23:00 07:00 15:00 23:00 Intake Total 840 ml Output Total 700 ml Balance 140 ml Intake Oral 840 ml Output Urine Total 700 ml # Bowel Movements 0 Result Diagram: 12/30/16 0234 12/30/16 0234 Imaging Last Impressions Lower Extremity Ultrasound 12/30/16 0000 Signed Impressions: Service Date/Time: Friday, December 30, 2016 15:20 - CONCLUSION: 1. No DVT identified. Size measurements are given above. Pravin Boyer MD Carotid Artery Ultrasound 12/30/16 0000 Signed Impressions: Service Date/Time: Friday, December 30, 2016 14:48 - CONCLUSION: 1. Limited examination. The vertebral arteries could not be identified. This is felt to be secondary to the patient's neck size. 2. Study would suggest at least a moderate grade stenosis in the right internal carotid origin. 3. No hemodynamically significant stenosis seen at the origin of the left internal carotid. Pravin Boyer MD Chest X-Ray 12/29/16 0449 Signed Impressions: Service Date/Time: December 06:24 - CONCLUSION: No significant change has occurred. Cameron Swenson MD Myocardial Perfusion Scan Nuc Med 12/29/16 0000 Signed Impressions: Service Date/Time: December 12:35 - CONCLUSION: 1. Differential perfusion defect in the low inferior lateral wall characteristic of an old watershed infarct. 2. Focal areas of about 20%% redistribution in portions of the inferior wall concerning for ischemia. 3. Preserved wall motion with estimated ejection fraction of 53%%. RISK CATEGORY: Low (<1%% Annual Mortality Rate) Miguel Spence MD Objective Remarks GENERAL: This is a well-nourished, well-developed patient, in no apparent distress. SKIN: No rashes, ecchymoses or lesions. Cool and dry. HEAD: Atraumatic. Normocephalic. No temporal or scalp tenderness. EYES: Pupils equal round and reactive. Extraocular motions intact. No scleral icterus. No injection or drainage. ENT: Nose without bleeding, purulent drainage or septal hematoma. Throat without erythema, tonsillar hypertrophy or exudate. Uvula midline. Airway patent. NECK: Trachea midline. No JVD or lymphadenopathy. Supple, nontender, no meningeal signs. CARDIOVASCULAR: Regular rate and rhythm without murmurs, gallops, or rubs. RESPIRATORY: Clear to auscultation. Breath sounds equal bilaterally. No wheezes , rales, or rhonchi. GASTROINTESTINAL: Abdomen soft, non-tender, nondistended. No hepato-splenomegaly , or palpable masses. No guarding. MUSCULOSKELETAL: Extremities without clubbing, cyanosis, or edema. No joint tenderness, effusion, or edema noted. No calf tenderness. Negative Homans sign bilaterally. NEUROLOGICAL: Awake and alert. Cranial nerves II through XII intact. Motor and sensory grossly within normal limits. Five out of 5 muscle strength in all muscle groups. Normal speech. A/P Assessment and Plan 76-year-old male past medical history of type 2 diabetes, hypertension, hyperlipidemia who presented with Atypical chest pain 2/2 3 vessel CAD Troponin negative x3. Patient with positive nuclear stress test. Cardiology consulted. S/P cardiac cath 12/30. Patient with 3 vessel CAD. ECHO. Continue medical management Consult CTS for evaluation, appreciate recommendations. Plan for CABG on Monday. Cardiology consulted , appreciate recommendations CKD -do not have a recent baseline. last Cr and GRF in 2010 and was normal. -unsure if this is acute. Looking at patient's diagnosis most likely chronic. -continue to monitor. -avoid nephrotoxins. Atrial fibrillation, persistent -Patient has been in A. fib for least 1 week. -[id number] score if 4. He would benefit from anticoagulation based on his score. Educated patient extensively on the risks, benefits, and side effects of anticoagulations in decreasing risk of cardioembolic stroke. Patient stated that he understands and he would like to pursue treatment. Options were discussed with patient and he stated that he would like a medication that he would not have to monitor. -once stress test completed and no intervention needed will start Eliquis. Elevated INR -Patient is not on any medication or does not show any signs of liver failure that would cause an elevated INR. INR was repeated and it was in normal range. most likely a lab mistake. Type 2 diabetes -Educated patient extensively on the consistency of diet. Since patient stated that he wouldn't eat for days and then when he developed tremors he would start eating a lot of food. Most likely during this time he is becoming hypoglycemic. -Will get hemoglobin A1c. Continue home regimen and put patient on insulin sliding scale. Hyperlipidemia/hypertension/os arthritis -Resume home medication. -Will get a lipid panel in the a.m. DVT prophylaxis -lovenox Code Status full Discussed Condition With Discussed with patient, nurse Lisbeth Smallwood MD Dec 30, 2016 18:53
[2016-12-30] MEDS ORDERED: SODIUM CHLORIDE 0.9% FLUSH 10 ML FLUSH IVF SCH (21:00)
[2016-12-30 22:35] LABS: APTT (PATIENT) 40.6 SEC (24.3-30.1)
[2016-12-31] VITALS (28 sets, daily range): BP systolic 140–155; BP diastolic 83–98; PULSE 53–108; RESP 16–18; TEMP 97.9–98.5; O2SAT 95–99
[2016-12-31 05:19] LABS: AUTOMATED NEUTROPHIL # 6.2 TH/MM3 (1.8-7.7); BASOPHIL # 0.1 TH/MM3 (0-0.2); BASOPHIL % 0.9 % (0.0-2.0); EOSINOPHIL # 0.4 TH/MM3 (0-0.4); EOSINOPHIL % 4.5 % (0.0-4.0); HEMATOCRIT 44.5 % (39.0-51.0); HEMO FLAGS DIFF FINAL; LYMPH % 19.9 % (9.0-44.0); LYMPHOCYTE # 1.9 TH/MM3 (1.0-4.8); MEAN CELL VOLUME 84.9 FL (80.0-100.0); MEAN CORPUSCULAR HEMOGLOBIN 28.4 PG (27.0-34.0); MEAN CORPUSCULAR HGB CONC 33.5 % (32.0-36.0); MONO % 11.1 % (0.0-8.0); NEUT % 63.6 % (16.0-70.0); PLATELET COUNT 163 TH/MM3 (150-450); RED BLOOD COUNT 5.24 MIL/MM3 (4.50-5.90); RED CELL DISTRIBUTION WIDTH 14.1 % (11.6-17.2); WHITE BLOOD COUNT 9.7 TH/MM3 (4.0-11.0)
[2016-12-31 05:31] LABS: APTT (PATIENT) 43.1 SEC (24.3-30.1)
[2016-12-31 05:41] LABS: BICARBONATE 26.9 MEQ/L (21.0-32.0); POTASSIUM 3.8 MEQ/L (3.5-5.1)
[2016-12-31] MEDS: SODIUM CHLOR 0.9% 1000 ML INJ 1,000 ML IV SCH ×2 (06:13→14:45)
[2016-12-31] MEDS: INSULIN ASPART SUPPLEMENTAL SCALE SQ SCH ×4 (06:14→21:30)
[2016-12-31] MEDS: NITROGLYCERIN 2% OINT 1 GM PACKET TOP SCH ×3 (06:15→18:00)
--- NOTE | 2016-12-31 06:57 | HHI.PR ---
Subjective Remarks In the chair, Says he was not sleeping much last night. Says he is not anxious. Says pain is controlled by mends. No sob, palpitations. Objective Vitals Vital Signs Date Time Temp Pulse Resp B/P Pulse Ox O2 Delivery O2 Flow Rate FiO2 12/31/16 06:00 84 12/31/16 05:00 84 12/31/16 04:47 96 16 152/94 95 12/31/16 04:00 98 12/31/16 03:00 74 12/31/16 02:00 82 12/31/16 01:00 78 12/31/16 00:00 74 12/30/16 23:00 79 16 154/98 97 12/30/16 23:00 92 12/30/16 22:00 84 12/30/16 21:00 86 12/30/16 20:20 98.7 86 16 155/90 97 12/30/16 20:00 88 12/30/16 19:00 85 12/30/16 18:03 77 12/30/16 17:00 76 12/30/16 16:00 82 12/30/16 15:00 70 12/30/16 15:00 98.1 72 16 149/98 96 12/30/16 09:41 92 Room Air I/O 12/30/16 12/30/16 12/30/16 12/31/16 12/31/16 12/31/16 07:00 15:00 23:00 07:00 15:00 23:00 Intake Total 840 ml 1780 ml Output Total 700 ml 1800 ml Balance 140 ml -20 ml Intake Oral 840 ml 480 ml IV Total 1300 ml Output Urine Total 700 ml 1800 ml # Bowel Movements 0 0 Result Diagram: 12/31/16 0458 12/31/16 0458 Objective Remarks GENERAL: This is a well-nourished, well-developed patient, in no apparent distress. SKIN: No rashes, ecchymoses or lesions. Cool and dry. HEAD: Atraumatic. Normocephalic. No temporal or scalp tenderness. EYES: Pupils equal round and reactive. Extraocular motions intact. No scleral icterus. No injection or drainage. ENT: Nose without bleeding, purulent drainage or septal hematoma. Throat without erythema, tonsillar hypertrophy or exudate. Uvula midline. Airway patent. NECK: Trachea midline. No JVD or lymphadenopathy. Supple, nontender, no meningeal signs. CARDIOVASCULAR: Regular rate and rhythm without murmurs, gallops, or rubs. RESPIRATORY: Clear to auscultation. Breath sounds equal bilaterally. No wheezes , rales, or rhonchi. GASTROINTESTINAL: Abdomen soft, non-tender, nondistended. No hepato-splenomegaly , or palpable masses. No guarding. MUSCULOSKELETAL: Extremities without clubbing, cyanosis, or edema. No joint tenderness, effusion, or edema noted. No calf tenderness. Negative Homans sign bilaterally. NEUROLOGICAL: Awake and alert. Cranial nerves II through XII intact. Motor and sensory grossly within normal limits. Five out of 5 muscle strength in all muscle groups. Normal speech. A/P Assessment and Plan 76-year-old male past medical history of type 2 diabetes, hypertension, hyperlipidemia who presented with Atypical chest pain 2/2 3 vessel CAD Troponin negative x3. Patient with positive nuclear stress test. Cardiology consulted. S/P cardiac cath 12/30. Patient with 3 vessel CAD. ECHO. Continue medical management Consult CTS for evaluation, appreciate recommendations. Plan for CABG on Monday. Cardiology consulted , appreciate recommendations CKD -do not have a recent baseline. last Cr and GRF in 2010 and was normal. -unsure if this is acute. Looking at patient's diagnosis most likely chronic. -continue to monitor. -avoid nephrotoxins. Atrial fibrillation, persistent -Patient has been in A. fib for least 1 week. -[id number] score if 4. He would benefit from anticoagulation based on his score. Educated patient extensively on the risks, benefits, and side effects of anticoagulations in decreasing risk of cardioembolic stroke. Patient stated that he understands and he would like to pursue treatment. Options were discussed with patient and he stated that he would like a medication that he would not have to monitor. -once stress test completed and no intervention needed will start Eliquis. Elevated INR -Patient is not on any medication or does not show any signs of liver failure that would cause an elevated INR. INR was repeated and it was in normal range. most likely a lab mistake. Type 2 diabetes -Educated patient extensively on the consistency of diet. Since patient stated that he wouldn't eat for days and then when he developed tremors he would start eating a lot of food. Most likely during this time he is becoming hypoglycemic. -Will get hemoglobin A1c. Continue home regimen and put patient on insulin sliding scale. Hyperlipidemia/hypertension/os arthritis -Resume home medication. -Will get a lipid panel in the a.m. DVT prophylaxis -lovenox Code Status full Discussed Condition With Discussed with patient, nurse Lisbeth Smallwood MD Dec 31, 2016 06:57
[2016-12-31] MEDS: SODIUM CHLORIDE 0.9% FLUSH 10 ML FLUSH IV FLUSH SCH ×2 (09:00→21:00)
[2016-12-31] MEDS: METOPROLOL TARTRATE 25 MG TAB PO SCH ×3 (09:07→21:31)
[2016-12-31] MEDS: ASPIRIN 81 MG CHEW TAB PO SCH (09:07)
[2016-12-31] MEDS: PRAVASTATIN SOD 40 MG TAB PO SCH (09:07)
[2016-12-31] MEDS: traMADol HCL 50 MG TAB PO PRN (09:12)
[2016-12-31] MEDS ORDERED: BACITRACIN OINT 0.9 GM PKT ONE (10:32)
--- NOTE | 2016-12-31 10:37 | PD.CARD.PN ---
Subjective Subjective Remarks Brief angina earlier, OK now Objective Medications Current Medications Medications (Trade) Dose Ordered Sig/Dilan Route Start Time Stop Time Status Last Admin (NS Flush) 2 ml BID IV FLUSH 12/29/16 21:00 12/30/16 16:32 (NS Flush) 2 ml UNSCH PRN IVF 12/29/16 10:00 (Aspirin Chew) 162 mg DAILY PO 12/29/16 10:00 12/31/16 09:07 (Lopressor) 25 mg BID PO 12/29/16 10:00 12/31/16 09:07 (Nitroglycerin 2% Oint) 0.5 inch Q6HR TOP 12/29/16 12:00 12/31/16 06:15 (Nitrostat Sl) 0.4 mg Q5M PRN SL 12/29/16 10:00 (Morphine Inj) 2 mg Q5M PRN IV 12/29/16 10:00 (Norvasc) 10 mg DAILY PO 12/30/16 09:00 12/31/16 09:07 (Catapres) 0.2 mg BID PO 12/29/16 21:00 Hold 12/29/16 22:01 (Pravachol) 40 mg DAILY PO 12/30/16 09:00 12/31/16 09:07 (Ultram) 50 mg Q6H PRN PO 12/29/16 12:45 12/31/16 09:12 (Glucagon Inj) 1 mg UNSCH PRN OTHER 12/29/16 12:45 (D50w (Vial) Inj) 25 ml UNSCH PRN IV PUSH 12/29/16 17:30 Enalaprilat 2.5 mg 2.5 mg Q6H PRN IV PUSH 12/30/16 05:15 (NS 1000 ml Inj) 1,000 ml @ 125 mls/hr Q8H IV 12/30/16 06:45 12/31/16 06:13 Ondansetron HCl 4 mg 4 mg Q4H PRN IV 12/30/16 09:30 (Heparin-D5W Inj) 250 ml @ 0 mls/hr TITRATE IV 12/30/16 09:45 12/30/16 16:30 (Pill Splitter) 1 ea UNSCH PRN OTHER 12/30/16 14:15 Vital Signs / I&O Vital Signs Date Time Temp Pulse Resp B/P Pulse Ox O2 Delivery O2 Flow Rate FiO2 12/31/16 09:00 88 12/31/16 08:00 84 12/31/16 07:00 98.5 88 18 155/96 97 12/31/16 07:00 84 12/31/16 06:00 84 12/31/16 05:00 84 12/31/16 04:47 96 16 152/94 95 12/31/16 04:00 98 12/31/16 03:00 74 12/31/16 02:00 82 12/31/16 01:00 78 12/31/16 00:00 74 12/30/16 23:00 79 16 154/98 97 12/30/16 23:00 92 12/30/16 22:00 84 12/30/16 21:00 86 12/30/16 20:20 98.7 86 16 155/90 97 12/30/16 20:00 88 12/30/16 19:00 85 12/30/16 18:03 77 12/30/16 17:00 76 12/30/16 16:00 82 12/30/16 15:00 70 12/30/16 15:00 98.1 72 16 149/98 96 I/O 12/30/16 12/30/16 12/30/16 12/31/16 12/31/16 12/31/16 07:00 15:00 23:00 07:00 15:00 23:00 Intake Total 840 ml 1780 ml Output Total 700 ml 1800 ml Balance 140 ml -20 ml Intake Oral 840 ml 480 ml IV Total 1300 ml Output Urine Total 700 ml 1800 ml # Bowel Movements 0 0 Physical Exam GENERAL: Well developed, obese, well nourished. No acute distress. HEENT: Jugular venous pressure is normal. CHEST: Lungs clear to auscultation bilaterally. Unlabored respiratory effort. CARDIAC: Regular rate and rhythm without S3, 2/6 RANJITH. ABDOMEN: Soft, nontender, no hepatosplenomegaly. Bowel sounds present. EXTREMITIES: No clubbing, cyanosis, or edema. Right groin OK Laboratory Laboratory Tests Test 12/30/16 12/31/16 22:17 04:58 Activated Partial 40.6 SEC 43.1 SEC Thromboplast Time White Blood Count 9.7 TH/MM3 Red Blood Count 5.24 MIL/MM3 Hemoglobin 14.9 GM/DL Hematocrit 44.5 % Mean Corpuscular Volume 84.9 FL Mean Corpuscular Hemoglobin 28.4 PG Mean Corpuscular Hemoglobin 33.5 % Concent Red Cell Distribution Width 14.1 % Platelet Count 163 TH/MM3 Mean Platelet Volume 8.1 FL Neutrophils (%) (Auto) 63.6 % Lymphocytes (%) (Auto) 19.9 % Monocytes (%) (Auto) 11.1 % Eosinophils (%) (Auto) 4.5 % Basophils (%) (Auto) 0.9 % Neutrophils # (Auto) 6.2 TH/MM3 Lymphocytes # (Auto) 1.9 TH/MM3 Monocytes # (Auto) 1.1 TH/MM3 Eosinophils # (Auto) 0.4 TH/MM3 Basophils # (Auto) 0.1 TH/MM3 CBC Comment DIFF FINAL Differential Comment Sodium Level 141 MEQ/L Potassium Level 3.8 MEQ/L Chloride Level 106 MEQ/L Carbon Dioxide Level 26.9 MEQ/L Anion Gap 8 MEQ/L Blood Urea Nitrogen 16 MG/DL Creatinine 1.43 MG/DL Estimat Glomerular Filtration 58 ML/MIN Rate Random Glucose 196 MG/DL Calcium Level 9.4 MG/DL Imaging Last 48 hours Impressions Lower Extremity Ultrasound 12/30/16 0000 Signed Impressions: Service Date/Time: Friday, December 30, 2016 15:20 - CONCLUSION: 1. No DVT identified. Size measurements are given above. Pravin Boyer MD Lower Extremity Ultrasound 12/30/16 0000 Signed Impressions: Service Date/Time: Friday, December 30, 2016 15:11 - CONCLUSION: 1. No DVT identified. Pravin Boyer MD Carotid Artery Ultrasound 12/30/16 0000 Signed Impressions: Service Date/Time: Friday, December 30, 2016 14:48 - CONCLUSION: 1. Limited examination. The vertebral arteries could not be identified. This is felt to be secondary to the patient's neck size. 2. Study would suggest at least a moderate grade stenosis in the right internal carotid origin. 3. No hemodynamically significant stenosis seen at the origin of the left internal carotid. Pravin Boyer MD Assessment and Plan Problem List: (1) Atrial fibrillation (2) Stage 3 chronic kidney disease Assessment and Plan: stable post cath (3) Hypertension Assessment and Plan: increase metoprolol (4) 3-vessel coronary artery disease (5) Unstable angina pectoris Assessment and Plan: Cont. IV heparin Assessment and Plan CABG eval Discussed Condition With family in room this AM Jude Messer MD Dec 31, 2016 10:37
--- NOTE | 2016-12-31 11:20 | EKG ---
Date Performed: 12/29/2016 Time Performed: 14:43:38 PTAGE: 76 years EKG: ATRIAL FIBRILLATION SEPTAL MYOCARDIAL INFARCTION INFERIOR MYOCARDIAL INFARCTION ABNORMAL EC G PREVIOUS TRACING : 12/29/2016 04.56 DOCTOR: Karyna Fragoso Interpretating Date/Time 12/31/2016 11:17:50
--- NOTE | 2016-12-31 12:19 | PD.CAR.PN ---
CVT Progress Note Subjective/Hospital Course: sts data discussed with pt RISK SCORES About the STS Risk Calculator Procedure: CAB Only Risk of Mortality: 2.155% Morbidity or Mortality: 21.782% Long Length of Stay: 9.926% Short Length of Stay: 27.351% Permanent Stroke: 2.063% Prolonged Ventilation: 13.786% DSW Infection: 0.798% Renal Failure: 10.023% Reoperation: 7.065% Objective: Vital Signs Date Time Temp Pulse Resp B/P Pulse Ox O2 Delivery O2 Flow Rate FiO2 12/31/16 11:06 98.1 75 18 140/83 98 12/31/16 09:00 88 12/31/16 08:00 84 12/31/16 07:00 98.5 88 18 155/96 97 12/31/16 07:00 84 12/31/16 06:00 84 12/31/16 05:00 84 12/31/16 04:47 96 16 152/94 95 12/31/16 04:00 98 12/31/16 03:00 74 12/31/16 02:00 82 12/31/16 01:00 78 12/31/16 00:00 74 12/30/16 23:00 79 16 154/98 97 12/30/16 23:00 92 12/30/16 22:00 84 12/30/16 21:00 86 12/30/16 20:20 98.7 86 16 155/90 97 12/30/16 20:00 88 12/30/16 19:00 85 12/30/16 18:03 77 12/30/16 17:00 76 12/30/16 16:00 82 12/30/16 15:00 70 12/30/16 15:00 98.1 72 16 149/98 96 Labs: Laboratory Tests Test 12/31/16 04:58 White Blood Count 9.7 TH/MM3 (4.0-11.0) Red Blood Count 5.24 MIL/MM3 (4.50-5.90) Hemoglobin 14.9 GM/DL (13.0-17.0) Hematocrit 44.5 % (39.0-51.0) Mean Corpuscular Volume 84.9 FL (80.0-100.0) Mean Corpuscular Hemoglobin 28.4 PG (27.0-34.0) Mean Corpuscular Hemoglobin 33.5 % Concent (32.0-36.0) Red Cell Distribution Width 14.1 % (11.6-17.2) Platelet Count 163 TH/MM3 (150-450) Mean Platelet Volume 8.1 FL (7.0-11.0) Neutrophils (%) (Auto) 63.6 % (16.0-70.0) Lymphocytes (%) (Auto) 19.9 % (9.0-44.0) Monocytes (%) (Auto) 11.1 % (0.0-8.0) Eosinophils (%) (Auto) 4.5 % (0.0-4.0) Basophils (%) (Auto) 0.9 % (0.0-2.0) Neutrophils # (Auto) 6.2 TH/MM3 (1.8-7.7) Lymphocytes # (Auto) 1.9 TH/MM3 (1.0-4.8) Monocytes # (Auto) 1.1 TH/MM3 (0-0.9) Eosinophils # (Auto) 0.4 TH/MM3 (0-0.4) Basophils # (Auto) 0.1 TH/MM3 (0-0.2) CBC Comment DIFF FINAL Differential Comment Activated Partial 43.1 SEC Thromboplast Time (24.3-30.1) Sodium Level 141 MEQ/L (136-145) Potassium Level 3.8 MEQ/L (3.5-5.1) Chloride Level 106 MEQ/L (98-107) Carbon Dioxide Level 26.9 MEQ/L (21.0-32.0) Anion Gap 8 MEQ/L (5-15) Blood Urea Nitrogen 16 MG/DL (7-18) Creatinine 1.43 MG/DL (0.60-1.30) Estimat Glomerular Filtration 58 ML/MIN (>89) Rate Random Glucose 196 MG/DL (74-106) Calcium Level 9.4 MG/DL (8.5-10.1) Result Diagram: 12/31/16 0458 12/31/16 0458 Imaging: Last Impressions Lower Extremity Ultrasound 12/30/16 Signed Impressions: Service Date/Time: Friday, December 30, 2016 15:20 - CONCLUSION: 1. No DVT identified. Size measurements are given above. Pravin Boyer MD Carotid Artery Ultrasound 12/30/16 0000 Signed Impressions: Service Date/Time: Friday, December 30, 2016 14:48 - CONCLUSION: 1. Limited examination. The vertebral arteries could not be identified. This is felt to be secondary to the patient's neck size. 2. Study would suggest at least a moderate grade stenosis in the right internal carotid origin. 3. No hemodynamically significant stenosis seen at the origin of the left internal carotid. Pravin Boyer MD Chest X-Ray 12/29/16 0449 Signed Impressions: Service Date/Time: December 06:24 - CONCLUSION: No significant change has occurred. Cameron Swenson MD Myocardial Perfusion Scan Nuc Med 12/29/16 0000 Signed Impressions: Service Date/Time: December 12:35 - CONCLUSION: 1. Differential perfusion defect in the low inferior lateral wall characteristic of an old watershed infarct. 2. Focal areas of about 20%% redistribution in portions of the inferior wall concerning for ischemia. 3. Preserved wall motion with estimated ejection fraction of 53%%. RISK CATEGORY: Low (<1%% Annual Mortality Rate) Miguel Spence MD Cardiovascular: RRR Telemetry: NSR Pulmonary: CTA GI/: NABS, NT Plan: I discussed the risks and benefits of CABG with him and his family and he agrees to proceed. Plan CABG Monday (1) Atrial fibrillation (2) Stage 3 chronic kidney disease Plan: stable post cath (3) Hypertension Plan: increase metoprolol (4) 3-vessel coronary artery disease (5) Unstable angina pectoris Plan: Cont. IV heparin Sharon Ayers MD Dec 31, 2016 12:19
[2016-12-31 12:31] LABS: BLOOD, URINE TRACE (NEG); GLUCOSE,URINE 300 mg/dL (NEG); KETONE, URINE NEG (NEG); NITRITE,URINE NEG (NEG); PH, URINE 6.5 (5.0-8.5); SQUAMOUS EPITHELIAL CELL URINE <1 /hpf (0-5); URINE COLOR LIGHT-YELLOW (YELLW/STRAW)
[2016-12-31 12:33] LABS: COMMENT (UR) CULT NOT INDICATED; CULTURE IF INDICATED CULT NOT INDICATED
[2016-12-31] MEDS: HEPARIN-D5W INJ 250 ML IV SCH (14:36)
--- NOTE | 2016-12-31 16:05 | EKG ---
Date Performed: 12/31/2016 Time Performed: 05:45:56 PTAGE: 76 years EKG: Atrial fibrillation Left axis deviation Since previous tracing, no significant change noted Abnormal ECG PREVIOUS TRACING : 12/29/2016 14.43 DOCTOR: Jude Messer Interpretating Date/Time 12/31/2016 16:04:35
[2016-12-31] MEDS: MUPIROCIN 2% OINT 1 APPLIC/GM SYR NASAL SCH (21:31)
[2017-01-01] VITALS (22 sets, daily range): BP systolic 139–153; BP diastolic 77–98; PULSE 69–108; RESP 16–18; TEMP 97.8–98.8; O2SAT 93–100
[2017-01-01] MEDS: NITROGLYCERIN 2% OINT 1 GM PACKET TOP SCH ×4 (00:28→16:49)
[2017-01-01] MEDS: INSULIN ASPART SUPPLEMENTAL SCALE SQ SCH ×4 (05:46→21:00)
[2017-01-01] MEDS: METOPROLOL TARTRATE 25 MG TAB PO SCH ×3 (05:47→21:32)
[2017-01-01 07:50] LABS: PROTHROMBIN TIME - PATIENT 11.4 SEC (9.8-11.6)
--- NOTE | 2017-01-01 07:55 | HHI.PR ---
Subjective Remarks In the chair. Doesn't appear in distress. Says less chest pain overnight. No SOB , palpitations, lightheadedness. Family will visit today, has family support , plan for surgery in AM. Objective Vitals Vital Signs Date Time Temp Pulse Resp B/P Pulse Ox O2 Delivery O2 Flow Rate FiO2 01/01/17 07:00 98.8 74 18 144/82 95 01/01/17 06:00 88 01/01/17 05:00 96 01/01/17 04:55 94 16 153/88 96 01/01/17 04:00 98 01/01/17 03:00 108 01/01/17 02:00 88 01/01/17 01:00 88 01/01/17 00:00 92 12/31/16 23:57 95 16 154/98 96 12/31/16 23:00 83 12/31/16 22:00 88 12/31/16 21:00 86 12/31/16 20:00 86 12/31/16 19:30 98.3 89 16 152/86 97 12/31/16 19:00 85 12/31/16 18:00 91 12/31/16 17:00 97 12/31/16 16:00 108 12/31/16 15:00 97.9 89 18 140/94 99 12/31/16 15:00 78 12/31/16 14:00 79 12/31/16 13:00 85 12/31/16 12:00 79 12/31/16 11:06 98.1 75 18 140/83 98 12/31/16 11:00 53 12/31/16 10:00 68 12/31/16 09:00 88 12/31/16 08:00 84 I/O 12/31/16 12/31/16 12/31/16 01/01/17 01/01/17 01/01/17 07:00 15:00 23:00 07:00 15:00 23:00 Intake Total 1780 ml 1060 ml 744 ml Output Total 1800 ml 1075 ml 800 ml Balance -20 ml -15 ml -56 ml Intake Oral 480 ml 1060 ml 600 ml IV Total 1300 ml 144 ml Output Urine Total 1800 ml 1075 ml 800 ml # Bowel Movements 0 1 1 Result Diagram: 12/31/16 0458 12/31/16 0458 Imaging Last Impressions Lower Extremity Ultrasound 12/30/16 0000 Signed Impressions: Service Date/Time: Friday, December 30, 2016 15:20 - CONCLUSION: 1. No DVT identified. Size measurements are given above. Pravin Boyer MD Carotid Artery Ultrasound 12/30/16 0000 Signed Impressions: Service Date/Time: Friday, December 30, 2016 14:48 - CONCLUSION: 1. Limited examination. The vertebral arteries could not be identified. This is felt to be secondary to the patient's neck size. 2. Study would suggest at least a moderate grade stenosis in the right internal carotid origin. 3. No hemodynamically significant stenosis seen at the origin of the left internal carotid. Pravin Boyer MD Chest X-Ray 12/29/16 0449 Signed Impressions: Service Date/Time: December 06:24 - CONCLUSION: No significant change has occurred. Cameron Swenson MD Myocardial Perfusion Scan Nuc Med 12/29/16 0000 Signed Impressions: Service Date/Time: December 12:35 - CONCLUSION: 1. Differential perfusion defect in the low inferior lateral wall characteristic of an old watershed infarct. 2. Focal areas of about 20%% redistribution in portions of the inferior wall concerning for ischemia. 3. Preserved wall motion with estimated ejection fraction of 53%%. RISK CATEGORY: Low (<1%% Annual Mortality Rate) Miguel Spence MD Objective Remarks GENERAL: This is a well-nourished, well-developed patient, in no apparent distress. SKIN: No rashes, ecchymoses or lesions. Cool and dry. HEAD: Atraumatic. Normocephalic. No temporal or scalp tenderness. EYES: Pupils equal round and reactive. Extraocular motions intact. No scleral icterus. No injection or drainage. ENT: Nose without bleeding, purulent drainage or septal hematoma. Throat without erythema, tonsillar hypertrophy or exudate. Uvula midline. Airway patent. NECK: Trachea midline. No JVD or lymphadenopathy. Supple, nontender, no meningeal signs. CARDIOVASCULAR: Regular rate and rhythm without murmurs, gallops, or rubs. RESPIRATORY: Clear to auscultation. Breath sounds equal bilaterally. No wheezes , rales, or rhonchi. GASTROINTESTINAL: Abdomen soft, non-tender, nondistended. No hepato-splenomegaly , or palpable masses. No guarding. MUSCULOSKELETAL: Extremities without clubbing, cyanosis, or edema. No joint tenderness, effusion, or edema noted. No calf tenderness. Negative Homans sign bilaterally. NEUROLOGICAL: Awake and alert. Cranial nerves II through XII intact. Motor and sensory grossly within normal limits. Five out of 5 muscle strength in all muscle groups. Normal speech. A/P Assessment and Plan 76-year-old male past medical history of type 2 diabetes, hypertension, hyperlipidemia who presented with Atypical chest pain 2/2 3 vessel CAD Troponin negative x3. Patient with positive nuclear stress test. Cardiology consulted. S/P cardiac cath 12/30. Patient with 3 vessel CAD. ECHO. Continue medical management Consult CTS for evaluation, appreciate recommendations. Plan for CABG on Monday. Cardiology consulted , appreciate recommendations CKD -do not have a recent baseline. last Cr and GRF in 2010 and was normal. -unsure if this is acute. Looking at patient's diagnosis most likely chronic. -continue to monitor. -avoid nephrotoxins. Atrial fibrillation, persistent -Patient has been in A. fib for least 1 week. -[id number] score if 4. He would benefit from anticoagulation based on his score. Educated patient extensively on the risks, benefits, and side effects of anticoagulations in decreasing risk of cardioembolic stroke. Patient stated that he understands and he would like to pursue treatment. Options were discussed with patient and he stated that he would like a medication that he would not have to monitor. -once stress test completed and no intervention needed will start Eliquis. Elevated INR -Patient is not on any medication or does not show any signs of liver failure that would cause an elevated INR. INR was repeated and it was in normal range. most likely a lab mistake. Type 2 diabetes -Educated patient extensively on the consistency of diet. Since patient stated that he wouldn't eat for days and then when he developed tremors he would start eating a lot of food. Most likely during this time he is becoming hypoglycemic. -Will get hemoglobin A1c. Continue home regimen and put patient on insulin sliding scale. Hyperlipidemia/hypertension/os arthritis -Resume home medication. -Will get a lipid panel in the a.m. DVT prophylaxis -lovenox Code Status full Discussed Condition With Discussed with patient, nurse Lisbeth Smallwood MD Jan 01, 2017 07:55
[2017-01-01 07:58] LABS: AUTOMATED NEUTROPHIL # 5.3 TH/MM3 (1.8-7.7); BASOPHIL % 0.5 % (0.0-2.0); EOSINOPHIL # 0.4 TH/MM3 (0-0.4); EOSINOPHIL % 4.1 % (0.0-4.0); HEMATOCRIT 46.5 % (39.0-51.0); HEMO FLAGS DIFF FINAL; LYMPHOCYTE # 2.1 TH/MM3 (1.0-4.8); MEAN CELL VOLUME 84.6 FL (80.0-100.0); MEAN CORPUSCULAR HEMOGLOBIN 28.6 PG (27.0-34.0); MEAN CORPUSCULAR HGB CONC 33.8 % (32.0-36.0); MONO % 12.1 % (0.0-8.0); NEUT % 59.3 % (16.0-70.0); PLATELET COUNT 158 TH/MM3 (150-450); RED BLOOD COUNT 5.49 MIL/MM3 (4.50-5.90); RED CELL DISTRIBUTION WIDTH 14.2 % (11.6-17.2); WHITE BLOOD COUNT 8.9 TH/MM3 (4.0-11.0)
[2017-01-01] MEDS: ASPIRIN 81 MG CHEW TAB PO SCH (08:22)
[2017-01-01] MEDS: SODIUM CHLORIDE 0.9% FLUSH 10 ML FLUSH IV FLUSH SCH ×2 (08:22→21:00)
[2017-01-01] MEDS: PRAVASTATIN SOD 40 MG TAB PO SCH (08:22)
[2017-01-01] MEDS: MUPIROCIN 2% OINT 1 APPLIC/GM SYR NASAL SCH ×2 (08:22→21:32)
[2017-01-01 08:24] LABS: BICARBONATE 27.2 MEQ/L (21.0-32.0); POTASSIUM 4.2 MEQ/L (3.5-5.1)
--- NOTE | 2017-01-01 10:25 | PD.CARD.PN ---
Subjective Subjective Remarks no complaints. no angina Objective Medications Current Medications Medications (Trade) Dose Ordered Sig/Dilan Route Start Time Stop Time Status Last Admin (NS Flush) 2 ml BID IV FLUSH 12/29/16 21:00 12/30/16 16:32 (NS Flush) 2 ml UNSCH PRN IVF 12/29/16 10:00 (Aspirin Chew) 162 mg DAILY PO 12/29/16 10:00 01/01/17 08:22 (Nitroglycerin 2% Oint) 0.5 inch Q6HR TOP 12/29/16 12:00 01/01/17 05:47 (Nitrostat Sl) 0.4 mg Q5M PRN SL 12/29/16 10:00 (Morphine Inj) 2 mg Q5M PRN IV 12/29/16 10:00 (Norvasc) 10 mg DAILY PO 12/30/16 09:00 01/01/17 08:22 (Catapres) 0.2 mg BID PO 12/29/16 21:00 Hold 12/29/16 22:01 (Pravachol) 40 mg DAILY PO 12/30/16 09:00 01/01/17 08:22 (Ultram) 50 mg Q6H PRN PO 12/29/16 12:45 12/31/16 09:12 (Glucagon Inj) 1 mg UNSCH PRN OTHER 12/29/16 12:45 (D50w (Vial) Inj) 25 ml UNSCH PRN IV PUSH 12/29/16 17:30 (Vasotec Inj) 2.5 mg Q6H PRN IV PUSH 12/30/16 05:15 Ondansetron HCl 4 mg 4 mg Q4H PRN IV 12/30/16 09:30 (Heparin-D5W Inj) 250 ml @ 0 mls/hr TITRATE IV 12/30/16 09:45 12/31/16 14:36 (Pill Splitter) 1 ea UNSCH PRN OTHER 12/30/16 14:15 (Lopressor) 25 mg Q8HR PO 12/31/16 14:00 01/01/17 05:47 (Bactroban Nasal 2% Oint) 1 applic BID NASAL 12/31/16 21:00 01/01/17 08:22 Vital Signs / I&O Vital Signs Date Time Temp Pulse Resp B/P Pulse Ox O2 Delivery O2 Flow Rate FiO2 01/01/17 08:00 80 01/01/17 07:00 70 01/01/17 07:00 98.8 74 18 144/82 95 01/01/17 06:00 88 01/01/17 05:00 96 01/01/17 04:55 94 16 153/88 96 01/01/17 04:00 98 01/01/17 03:00 108 01/01/17 02:00 88 01/01/17 01:00 88 01/01/17 00:00 92 12/31/16 23:57 95 16 154/98 96 12/31/16 23:00 83 12/31/16 22:00 88 12/31/16 21:00 86 12/31/16 20:00 86 12/31/16 19:30 98.3 89 16 152/86 97 12/31/16 19:00 85 12/31/16 18:00 91 12/31/16 17:00 97 12/31/16 16:00 108 12/31/16 15:00 97.9 89 18 140/94 99 12/31/16 15:00 78 12/31/16 14:00 79 12/31/16 13:00 85 12/31/16 12:00 79 12/31/16 11:06 98.1 75 18 140/83 98 12/31/16 11:00 53 I/O 12/31/16 12/31/16 12/31/16 01/01/17 01/01/17 01/01/17 07:00 15:00 23:00 07:00 15:00 23:00 Intake Total 1780 ml 1060 ml 744 ml Output Total 1800 ml 1075 ml 800 ml Balance -20 ml -15 ml -56 ml Intake Oral 480 ml 1060 ml 600 ml IV Total 1300 ml 144 ml Output Urine Total 1800 ml 1075 ml 800 ml # Bowel Movements 0 1 1 Physical Exam GENERAL: Well developed, obese, well nourished. No acute distress. HEENT: Jugular venous pressure is normal. CHEST: Lungs clear to auscultation bilaterally. Unlabored respiratory effort. CARDIAC: Regular rate and rhythm without S3, 2/6 RANJITH. ABDOMEN: Soft, nontender, no hepatosplenomegaly. Bowel sounds present. EXTREMITIES: No clubbing, cyanosis, or edema. Right groin OK Laboratory Laboratory Tests Test 12/31/16 01/01/17 01/01/17 10:45 06:50 07:02 Nasal Screen MRSA (PCR) POSITIVE White Blood Count 8.9 TH/MM3 Red Blood Count 5.49 MIL/MM3 Hemoglobin 15.7 GM/DL Hematocrit 46.5 % Mean Corpuscular Volume 84.6 FL Mean Corpuscular Hemoglobin 28.6 PG Mean Corpuscular Hemoglobin 33.8 % Concent Red Cell Distribution Width 14.2 % Platelet Count 158 TH/MM3 Mean Platelet Volume 8.3 FL Neutrophils (%) (Auto) 59.3 % Lymphocytes (%) (Auto) 24.0 % Monocytes (%) (Auto) 12.1 % Eosinophils (%) (Auto) 4.1 % Basophils (%) (Auto) 0.5 % Neutrophils # (Auto) 5.3 TH/MM3 Lymphocytes # (Auto) 2.1 TH/MM3 Monocytes # (Auto) 1.1 TH/MM3 Eosinophils # (Auto) 0.4 TH/MM3 Basophils # (Auto) 0.0 TH/MM3 CBC Comment DIFF FINAL Differential Comment Prothrombin Time 11.4 SEC Prothromb Time International 1.0 RATIO Ratio Activated Partial 45.0 SEC Thromboplast Time Sodium Level 138 MEQ/L Potassium Level 4.2 MEQ/L Chloride Level 103 MEQ/L Carbon Dioxide Level 27.2 MEQ/L Anion Gap 8 MEQ/L Blood Urea Nitrogen 17 MG/DL Creatinine 1.43 MG/DL Estimat Glomerular Filtration 58 ML/MIN Rate Random Glucose 228 MG/DL Calcium Level 9.5 MG/DL Blood Type O POSITIVE Antibody Screen NEGATIVE Crossmatch Leukocyte-Reduced Red Blood Cells Blood Bank Comment Assessment and Plan Problem List: (1) Atrial fibrillation (2) Stage 3 chronic kidney disease Assessment and Plan: stable. no contrast nephropathy (3) Hypertension (4) 3-vessel coronary artery disease (5) Unstable angina pectoris Assessment and Plan CABG tomorrow Discussed Condition With Jude Messer MD Jan 01, 2017 10:25
[2017-01-01] MEDS: HEPARIN-D5W INJ 250 ML IV SCH (14:08)
[2017-01-01] MEDS: SODIUM CHLORID 0.9% 500 ML IV SCH (20:30)
[2017-01-01] MEDS ORDERED: LACTATED RINGER'S 1000 ML IV SCH (20:30)
[2017-01-02] VITALS (18 sets, daily range): BP systolic 110–160; BP diastolic 60–95; PULSE 64–93; RESP 10–20; TEMP 97.6–98; O2SAT 94–98
[2017-01-02] MEDS ORDERED: HEPARIN SODIUM - SQ 10,000 UNITS/ML VIAL SQ ONE (05:00)
[2017-01-02] MEDS ORDERED: AMINOCAPROIC ACID INJ 250 MG/ML 20 ML VIAL IV ONE (05:00)
[2017-01-02] MEDS ORDERED: DOPamine INJ PREMIX 500 ML IV ONE (05:00)
[2017-01-02] MEDS ORDERED: NEOSTIGMINE METHYLSULFATE 10 MG/10 ML VIAL IV PUSH ONE (05:00)
[2017-01-02] MEDS ORDERED: ARTIFICIAL TEARS OPTH OINT 3.5 APPLIC/3.5 GM TUBO ONE (05:00)
[2017-01-02] MEDS ORDERED: PHENYLEPHRINE HCL 10 MG/ML VIAL IV ONE (05:00)
[2017-01-02] MEDS ORDERED: GLYCOPYRROLATE 0.2 MG/ML VIAL IV ONE (05:00)
[2017-01-02] MEDS ORDERED: MAGNESIUM SULFATE 1000 MG/2 ML VIAL (PED) IV ONE (05:00)
[2017-01-02] MEDS ORDERED: PROTAMINE SULFATE 250 MG/25 ML VIAL IV ONE (05:00)
[2017-01-02] MEDS ORDERED: CALCIUM CHLORIDE 10% SOLN 1 GRAM/10 ML SYR IV ONE (05:00)
[2017-01-02] MEDS ORDERED: ceFAZolin INJ 1,000 MG VIAL IV ONE (05:00)
[2017-01-02 05:49] LABS: BICARBONATE 27.8 MEQ/L (21.0-32.0); POTASSIUM 4.1 MEQ/L (3.5-5.1)
[2017-01-02 05:52] LABS: AUTOMATED NEUTROPHIL # 4.9 TH/MM3 (1.8-7.7); BASOPHIL % 0.5 % (0.0-2.0); EOSINOPHIL # 0.5 TH/MM3 (0-0.4); EOSINOPHIL % 5.3 % (0.0-4.0); HEMATOCRIT 44.9 % (39.0-51.0); HEMO FLAGS DIFF FINAL; LYMPH % 25.9 % (9.0-44.0); LYMPHOCYTE # 2.3 TH/MM3 (1.0-4.8); MEAN CELL VOLUME 83.8 FL (80.0-100.0); MEAN CORPUSCULAR HEMOGLOBIN 28.9 PG (27.0-34.0); MEAN CORPUSCULAR HGB CONC 34.5 % (32.0-36.0); MONO % 12.9 % (0.0-8.0); NEUT % 55.4 % (16.0-70.0); PLATELET COUNT 167 TH/MM3 (150-450); RED BLOOD COUNT 5.36 MIL/MM3 (4.50-5.90); RED CELL DISTRIBUTION WIDTH 14.6 % (11.6-17.2); WHITE BLOOD COUNT 8.9 TH/MM3 (4.0-11.0)
[2017-01-02] MEDS: NITROGLYCERIN 2% OINT 1 GM PACKET TOP SCH ×2 (05:55)
[2017-01-02] MEDS: METOPROLOL TARTRATE 25 MG TAB PO SCH (05:55)
[2017-01-02] MEDS: INSULIN ASPART SUPPLEMENTAL SCALE SQ SCH ×4 (06:12→21:00)
[2017-01-02] MEDS ORDERED: CARDIOPLEGIC IRR 1,000 ML ONE (07:01)
[2017-01-02] MEDS ORDERED: POTASSIUM CHLORIDE 40 MEQ/20 ML VIAL ONE ×4 (07:01→07:09)
[2017-01-02] MEDS ORDERED: HEPARIN SODIUM - IV 10,000 UNITS/10 ML VIAL ONE (07:02)
[2017-01-02] MEDS ORDERED: MANNITOL INJ 50 ML ONE (07:02)
[2017-01-02] MEDS ORDERED: HEPARIN SODIUM - SQ 10,000 UNITS/ML VIAL ONE ×2 (07:02→07:12)
[2017-01-02] MEDS ORDERED: SODIUM BICARBONATE 8.4% INJ 50 ML ONE (07:03)
[2017-01-02] MEDS ORDERED: ALBUMIN HUMAN 25% 12.5 GM/50 ML BAGP IV ONE (07:03)
[2017-01-02] MEDS ORDERED: methylPREDNISolone SOD SUCC 125 MG/2 ML VIAL ONE (07:12)
[2017-01-02] MEDS ORDERED: VANCOMYCIN HCL 1000 MG VIAL ONE (07:12)
[2017-01-02] MEDS ORDERED: POTASSIUM CHLORIDE 20 MEQ/10 ML VIAL ONE (07:13)
--- NOTE | 2017-01-02 07:38 | HHI.PR ---
Subjective Remarks Patient in bed, says he did not have any chest pain overnight. No diaphoresis, nausea, sob, lightheadedness or palpitations. No v/d/c. Feels ready for surgery today. Objective Vitals Vital Signs Date Time Temp Pulse Resp B/P Pulse Ox O2 Delivery O2 Flow Rate FiO2 01/02/17 07:15 97.7 81 14 148/95 01/02/17 07:15 Room Air 01/02/17 07:15 81 01/02/17 06:00 80 20 01/02/17 04:00 64 01/02/17 04:00 Room Air 01/02/17 00:00 94 Room Air 01/02/17 00:00 64 01/02/17 00:00 64 18 160/95 94 01/01/17 20:00 93 Room Air 01/01/17 20:00 98.7 81 16 153/98 93 01/01/17 20:00 82 01/01/17 18:01 90 01/01/17 17:01 80 01/01/17 16:28 139/77 01/01/17 16:26 Room Air 95 01/01/17 16:09 78 01/01/17 15:00 97.8 69 18 146/94 100 01/01/17 15:00 73 01/01/17 14:00 81 01/01/17 13:00 81 01/01/17 12:00 82 01/01/17 11:00 71 01/01/17 11:00 97.8 86 18 149/88 97 01/01/17 10:00 104 01/01/17 09:00 76 01/01/17 08:00 80 I/O 01/01/17 01/01/17 01/01/17 01/02/17 01/02/17 01/02/17 06:59 14:59 22:59 06:59 14:59 22:59 Intake Total 744 ml 2282 ml 670 ml Output Total 800 ml 675 ml 1500 ml Balance -56 ml 1607 ml -830 ml Intake Oral 600 ml 1600 ml 540 ml IV Total 144 ml 682 ml 130 ml Output Urine Total 800 ml 675 ml 1500 ml # Bowel Movements 1 4 0 Result Diagram: 01/02/17 0504 01/02/17 0504 Imaging Last Impressions Lower Extremity Ultrasound 12/30/16 0000 Signed Impressions: Service Date/Time: Friday, December 30, 2016 15:20 - CONCLUSION: 1. No DVT identified. Size measurements are given above. Pravin Boyer MD Carotid Artery Ultrasound 12/30/16 Signed Impressions: Service Date/Time: Friday, December 30, 2016 14:48 - CONCLUSION: 1. Limited examination. The vertebral arteries could not be identified. This is felt to be secondary to the patient's neck size. 2. Study would suggest at least a moderate grade stenosis in the right internal carotid origin. 3. No hemodynamically significant stenosis seen at the origin of the left internal carotid. Pravin Boyer MD Chest X-Ray 12/29/16 0449 Signed Impressions: Service Date/Time: December 06:24 - CONCLUSION: No significant change has occurred. Cameron Swenson MD Myocardial Perfusion Scan Nuc Med 12/29/16 Signed Impressions: Service Date/Time: December 12:35 - CONCLUSION: 1. Differential perfusion defect in the low inferior lateral wall characteristic of an old watershed infarct. 2. Focal areas of about 20%% redistribution in portions of the inferior wall concerning for ischemia. 3. Preserved wall motion with estimated ejection fraction of 53%%. RISK CATEGORY: Low (<1%% Annual Mortality Rate) Miguel Spence MD Objective Remarks GENERAL: This is a well-nourished, well-developed patient, in no apparent distress. SKIN: No rashes, ecchymoses or lesions. Cool and dry. HEAD: Atraumatic. Normocephalic. No temporal or scalp tenderness. EYES: Pupils equal round and reactive. Extraocular motions intact. No scleral icterus. No injection or drainage. ENT: Nose without bleeding, purulent drainage or septal hematoma. Throat without erythema, tonsillar hypertrophy or exudate. Uvula midline. Airway patent. NECK: Trachea midline. No JVD or lymphadenopathy. Supple, nontender, no meningeal signs. CARDIOVASCULAR: Regular rate and rhythm without murmurs, gallops, or rubs. RESPIRATORY: Clear to auscultation. Breath sounds equal bilaterally. No wheezes , rales, or rhonchi. GASTROINTESTINAL: Abdomen soft, non-tender, nondistended. No hepato-splenomegaly , or palpable masses. No guarding. MUSCULOSKELETAL: Extremities without clubbing, cyanosis, or edema. No joint tenderness, effusion, or edema noted. No calf tenderness. Negative Homans sign bilaterally. NEUROLOGICAL: Awake and alert. Cranial nerves II through XII intact. Motor and sensory grossly within normal limits. Five out of 5 muscle strength in all muscle groups. Normal speech. A/P Assessment and Plan 76-year-old male past medical history of type 2 diabetes, hypertension, hyperlipidemia who presented with Atypical chest pain 2/2 3 vessel CAD Troponin negative x3. Patient with positive nuclear stress test. Cardiology consulted. S/P cardiac cath 12/30. Patient with 3 vessel CAD. ECHO. Continue medical management Consult CTS for evaluation, appreciate recommendations. Going for CABG on 01/02/17 Cardiology consulted , appreciate recommendations CKD -do not have a recent baseline. last Cr and GRF in 2010 and was normal. -unsure if this is acute. Looking at patient's diagnosis most likely chronic. -continue to monitor. -avoid nephrotoxins. Atrial fibrillation, persistent -Patient has been in A. fib for least 1 week. -[id number] score if 4. He would benefit from anticoagulation based on his score. Educated patient extensively on the risks, benefits, and side effects of anticoagulations in decreasing risk of cardioembolic stroke. Patient stated that he understands and he would like to pursue treatment. Options were discussed with patient and he stated that he would like a medication that he would not have to monitor. -once stress test completed and no intervention needed will start Eliquis. Elevated INR -Patient is not on any medication or does not show any signs of liver failure that would cause an elevated INR. INR was repeated and it was in normal range. most likely a lab mistake. Type 2 diabetes -Educated patient extensively on the consistency of diet. Since patient stated that he wouldn't eat for days and then when he developed tremors he would start eating a lot of food. Most likely during this time he is becoming hypoglycemic. -Will get hemoglobin A1c. Continue home regimen and put patient on insulin sliding scale. Hyperlipidemia/hypertension/os arthritis -Resume home medication. -Will get a lipid panel in the a.m. DVT prophylaxis -lovenox Code Status full Discussed Condition With Discussed with patient, nurse Lisbeth Smallwood MD Jan 02, 2017 07:38
--- NOTE | 2017-01-02 08:01 | MB ---
cc: SHARON AYERS DATE OF CONSULTATION: 12/30/2016 DATE OF : 1940 REASON FOR CONSULTATION: This 76-year-old male patient of Dr. Zohaib Cárdenas and also patient of Dr. Jude Messer, apparently presented to the emergency department with substernal chest pain. He has been complaining of chest pain off and on for the past week, mainly with exertion associated with shortness of breath. No diaphoresis, nausea or vomiting. He was ruled out for an myocardial infarction. The troponins were negative. He however went under nuclear stress testing which showed a differential perfusion defect in low inferior wall, characteristic of an old watershed infarct, EF of 53%. They did an echo which had very poor imaging due to poor acoustic window availability. He underwent cardiac cath today, which showed multivessel disease 70% proximal LAD mid distal LAD 80% diagonal 70%. The circ was 80% OM 70%. The RCA 80%. We were consulted to evaluate for coronary artery bypass grafting. The patient has a history of some chronic kidney disease. Baseline was 168. He is now 142, apparent new onset of atrial fibrillation now on heparin with the [place] IV score for arthritis, diverticulitis, diabetes mellitus type 2, surgeries include Vasectomy he had a partial colectomy secondary to diverticulitis left total knee replacement. ALLERGIES CODEINE MEDICATIONS home meds include 1. Lovastatin. 2. Glyburide. 3. Clonidine. 4. Tramadol. 5. Norvasc. FAMILY HISTORY Negative for coronary disease. SOCIAL HISTORY . The patient , five children. Retired from construction, smoked two packs a day for about 10 years quit 15 years ago. REVIEW OF SYSTEMS Otherwise negative other then what is in the history of present illness. PHYSICAL EXAMINATION: VITAL SIGNS: Blood pressure 140/90, heart rate 72, temperature 98.1. IN GENERAL: Patient is awake, alert, no acute distress. HEAD, EYES, EARS, NOSE, AND THROAT: Head is normocephalic, atraumatic. Pupils equal and reactive. Oral mucosa pink, moist. NECK: Supple. No JVD. HEART: Heart sounds S1-S2 regular rate and rhythm. No rubs, murmurs, gallops. LUNGS: Clear to auscultation. No wheezes, rales or rhonchi. ABDOMEN: The abdomen is soft, nontender. No masses or organomegaly. EXTREMITIES: No cyanosis, clubbing or edema. LABORATORY FINDINGS Shows hemoglobin 40, hematocrit of 42, white cell count 8.1, platelet count 172, sodium 139, potassium 4.4, BUN 19, creatinine 1.42, glucose 168, hemoglobin A1c is 7.6, triglycerides 105, cholesterol 92, LDL 35, HDL 35 and radiological exams carotid ultrasound moderate grade stenosis in the right internal carotid origin the right measuring approximately 50% stenosis. Other exams ultrasound lower extremities. No Deep venous thrombosis. Chest x-ray Some cardiomegaly some degenerative changes of the spine no effusion. IMPRESSION This is very pleasant 76-year-old male with coronary artery disease, unstable angina multivessel disease. Plan at this time procedures, alternatives and risks have been discussed by Dr. Sharon Ayers. PLAN: The plan will be for coronary artery bypass grafting x4 on MondayJanuary 02. STS data will be discussed and documented in the electronic record. In the meantime the patient will be on beta-elizabeth, aspirin, statin and continue diabetic coverage. Further planning per Dr. Sharon Ayers. DICTATED BY: CHRIS Das MD REGGIE Jones/fabiola /6:25 PM /8:01 AM
[2017-01-02] MEDS: PRAVASTATIN SOD 40 MG TAB PO SCH (09:00)
[2017-01-02] MEDS: SODIUM CHLORIDE 0.9% FLUSH 10 ML FLUSH IV FLUSH SCH ×2 (09:00→19:58)
[2017-01-02] MEDS: MUPIROCIN 2% OINT 1 APPLIC/GM SYR NASAL SCH ×2 (09:00→21:00)
[2017-01-02] MEDS: ASPIRIN 81 MG CHEW TAB PO SCH (09:00)
[2017-01-02] MEDS ORDERED: fentaNYL CITRATE 1000 MCG/20 ML VIAL ONE (09:36)
[2017-01-02] MEDS ORDERED: MIDAZOLAM HCL 5 MG/5 ML VIAL ONE (09:36)
[2017-01-02] MEDS: SODIUM CHLORID 0.9% 500 ML IV SCH (13:10)
[2017-01-02] MEDS ORDERED: LACTATED RINGER'S 1000 ML INJ 500 ML IV PRN (14:20)
[2017-01-02] MEDS ORDERED: LACTATED RINGER'S 1000 ML INJ 2,000 ML IV ONE (14:27)
[2017-01-02] MEDS ORDERED: NORMOSOL R INJ 2,000 ML IV ONE (14:27)
[2017-01-02] MEDS ORDERED: SODIUM CHLOR 0.9% 250 ML INJ 500 ML IV ONE (14:27)
[2017-01-02] MEDS ORDERED: SODIUM CHLORIDE 0.9% INJ 200 ML IV ONE (14:27)
[2017-01-02] MEDS ORDERED: SODIUM CHLORID 0.9% 500 ML INJ 500 ML IV ONE (14:27)
[2017-01-02] MEDS ORDERED: CLEVIDIPINE INJ 50 ML IV SCH (14:30)
[2017-01-02] MEDS ORDERED: ACETAMINOPHEN 650 MG SUPP RECTAL PRN (14:30)
[2017-01-02] MEDS ORDERED: hydrALAZINE HCL 20 MG/ML VIAL IV PRN (14:30)
[2017-01-02] MEDS ORDERED: CALCIUM CHLORIDE INJ 1 GM in SODIUM CHLORIDE 0.9% INJ 100 ML IV PRN (14:30)
[2017-01-02] MEDS ORDERED: POTASSIUM CHLORIDE 20 MEQ CONTROLLED RELEASE TAB PO PRN ×2 (14:30)
[2017-01-02] MEDS ORDERED: INSULIN REGULAR (IV INFUSION) 100 UNITS in SODIUM CHLORIDE 0.9% INJ 99 ML IV SCH (14:30)
[2017-01-02] MEDS ORDERED: DOPamine INJ PREMIX 500 ML IV SCH (14:30)
[2017-01-02] MEDS ORDERED: DEXTROSE 50% IN WATER 50 ML VIAL(D50) IV PUSH PRN (14:30)
[2017-01-02] MEDS ORDERED: CALCIUM CHLORIDE 10% 1 GRAM/10 ML VIAL IV PRN (14:30)
[2017-01-02] MEDS ORDERED: oxyCODONE/ACETAMINOPHEN 5 MG/325 MG TAB PO PRN (14:30)
[2017-01-02] MEDS ORDERED: POTASSIUM CHLOR 20 MEQ PREMIX 100 ML IV PRN ×2 (14:30)
[2017-01-02] MEDS ORDERED: Post-op Orders (for Pharmacy) MISC OTHER ONE (14:30)
[2017-01-02] MEDS ORDERED: ONDANSETRON HCL 4 MG/2 ML VIAL IV PUSH PRN (14:30)
[2017-01-02] MEDS ORDERED: MAGNESIUM SULFATE INJ 2 GM in SODIUM CHLORIDE 0.9% INJ 100 ML IV PRN ×4 (14:30)
[2017-01-02] MEDS ORDERED: ACETAMINOPHEN 325 MG TAB PO PRN (14:30)
--- NOTE | 2017-01-02 14:33 | PD.OP ---
cc: Sharon Ayers MD; Jude Messer MD Operative Report Date of Surgery: Jan 02, 2017 Preoperative Diagnosis: (1) Chest pain (2) Dyspnea on exertion (3) Unstable angina pectoris (4) 3-vessel coronary artery disease Postoperative Diagnosis: same Procedure: CABG x 3 KUMAR to LAD - good SVG to PDA - fair SVG to OM2 - fair EVH Anesthesia: Dr. Orellana Surgeon: Sharon Ayers Straight Edger(s): HERLINDA Whitehead Operation and Findings: The risks, benefits, complications, treatment options, and expected outcomes were discussed with the patient. The possibilities of reaction to medication, pulmonary aspiration, perforation of viscus, bleeding, recurrent infection, the need for additional procedures, failure to diagnose a condition, and creating a complication requiring transfusion or operation were discussed with the patient. The patient concurred with the proposed plan, giving informed consent. The site of surgery properly noted/marked. The patient was taken to Operating Room, identified as Samantha Sears and the procedure verified as CABG, EVH. A Time Out was held and the above information confirmed. Standard monitoring lines and Rodriguez catheter were placed. General anesthesia was induced. The patient was prepped and draped in a sterile fashion. A median sternotomy was performed and electrocautery was used to obtain hemostasis. The left internal mammary artery was procured as a pedicle from the 7th rib to the 1st rib in the usual manner. Simultaneously left greater saphenous vein was procured from the left leg using a minimally invasive endoscopic technique. The vein was prepared for anastomosis and the leg wound was irrigated and closed in 2 layers. The pericardium was opened and a pericardial sling was created using interrupted 0 silk sutures. The patient was heparinized for cardiopulmonary bypass and the distal mammary pedicle was instrumented for anastomosis. The heart was instrumented for cardiopulmonary bypass in the usual manner. Antegrade blood cardioplegia was employed. The patient was placed on cardiopulmonary bypass. An aortic cross-clamp was applied and the heart was arrested using cold blood cardioplegia. Antegrade cardioplegia was administered after he each anastomosis. After adequate arrest, the distal right coronary circulation was investigated and the PDA was opened with a [place] blade and found to be a 1 millimeter fair target. The patient was noted to have dense and diffuse calcification of the coronary arteries. Saphenous vein was approximated to the PDA artery using a running 7 0 Prolene suture. The graft was measured for length and orientation and the proximal anastomosis was constructed to the ascending aorta using a running 5 0 Prolene suture after creating an aortotomy with a 5 millimeter punch. The 2nd circumflex marginal artery was then opened with a [place] blade and found to be a 1.5 millimeter fair target with diffuse disease. Saphenous vein was approximated to the OM2 artery using a running 7 0 Prolene suture. The graft was measured for length and orientation and was suspended from the pericardium. The OM1 artery was investigated and found to be densely calcifies throughout its length/ The distal LAD was opened with a [place] blade and found to be a 1.5 millimeter good target. The left internal mammary artery was approximated to the LAD using a running 7 0 Prolene suture. The pedicle was attached to the epicardium using interrupted 5 0 silk suture. The patient was systemically rewarmed and received a hotshot dose of warm blood cardioplegia. The aorta was vented and the proximal anastomosis to the OM2 graft was accomplished using a running 5 0 Prolene suture after creating an aortotomy was a 5 millimeter punch. The cross-clamp was removed and all proximal and distal anastomoses were examined for hemostasis. Temporary atrial and ventricular pacing wires were positioned and brought out through the skin in the usual manner. The patient was paced at 80 beats per minute and weaned from cardiopulmonary bypass. Protamine was given. There was no adverse reaction. Decannulation was carried out without incident. Wound was checked for hemostasis which was obtained using electrocautery. A 36 Tong[place] mediastinal and 32 [place] left pleural chest was were placed and secured to the skin with 0 silk suture. The sternum was closed with stainless steel wire. The fascia was closed with 1. PDS. The subcutaneous tissue was closed using a running 2-0 Vicryl suture. The skin was closed with 4-0 Monocryl. Sterile dressings were placed. At the end of the operation, all sponge, instruments, and needle counts were correct. The patient was transferred to the CVICU in stable condition. Findings: Dense calcific disease in the arteries XC: 72 min CPB: 87 min Drains: mediastinal x 1 pleural x 1 Complications: none Disposition: to CVICU in stable condition Condition: {stable/unstable:56102} Pacing Wires: 2 atrial and 2 ventricular Sharon Ayers MD Jan 02, 2017 14:33
--- NOTE | 2017-01-02 16:07 | RADRPT ---
EXAM DATE/TIME: 01/02/2017 15:35 [facility] COMPARISON: CHEST SINGLE AP, December 29, 2016, 6:24. INDICATIONS : S/p cabg. MEDICAL HISTORY : Hypercholesterolemia. Hypertension diabetes, sleep apnea SURGICAL HISTORY : None. ENCOUNTER: Initial ACUITY: 1 day PAIN SCORE: Non-responsive. LOCATION: Bilateral chest FINDINGS: ET tube, central venous catheter, and mediastinal drain are in good position. Left shweta st tube is in good position. There is no pneumothorax. Mediastinum is prominent but not changed fro m the comparison study. Pulmonary vascularity is normal. CONCLUSION: 1. Support apparatus in good position. 2. Satisfactory appearance of the chest. Mikey Boyer MD FACR on January 02, 2017 at 16:03 Board Certified Radiologist. This report was verified electronically.
[2017-01-02] MEDS: POTASSIUM CHLOR 20 MEQ PREMIX 100 ML IV PRN ×2 (16:12→18:50)
[2017-01-02] MEDS: VANCOMYCIN INJ 1,000 MG in SODIUM CHLOR 0.9% 250 ML INJ 250 ML IV SCH (16:13)
[2017-01-02] MEDS: ACETAMINOPHEN 1000 MG/100 ML VIAL IV SCH ×2 (16:13→19:58)
[2017-01-02] MEDS ORDERED: RESP: ALBUTEROL 2.5 MG/IPRATROPIUM 0.5 MG NEB (PRN) NEB (18:00)
[2017-01-02] MEDS ORDERED: RESP: RACEPINEPHRINE 2.25% 0.5 ML NEB NEB PRN (18:00)
[2017-01-02] MEDS: METOPROLOL TARTRATE 5 MG/5 ML VIAL IV PUSH PRN (19:58)
[2017-01-02] MEDS: RESP: ALBUTEROL 2.5 MG/IPRATROPIUM 0.5 MG NEB (SCH) NEB (21:29)
[2017-01-03] VITALS (14 sets, daily range): BP systolic 94–153; BP diastolic 56–92; PULSE 80–94; RESP 16–18; TEMP 97.6–98.3; O2SAT 91–97
[2017-01-03] MEDS: traMADol HCL 50 MG TAB PO PRN ×4 (00:27→22:57)
[2017-01-03] MEDS: VANCOMYCIN INJ 1,000 MG in SODIUM CHLOR 0.9% 250 ML INJ 250 ML IV SCH ×2 (03:37→17:20)
[2017-01-03] MEDS: ACETAMINOPHEN 1000 MG/100 ML VIAL IV SCH ×2 (03:37→08:03)
[2017-01-03] MEDS: RESP: ALBUTEROL 2.5 MG/IPRATROPIUM 0.5 MG NEB (SCH) NEB ×3 (03:53→19:10)
[2017-01-03 04:41] LABS: HEMATOCRIT 41.3 % (39.0-51.0); MEAN CELL VOLUME 84.7 FL (80.0-100.0); MEAN CORPUSCULAR HEMOGLOBIN 28.4 PG (27.0-34.0); MEAN CORPUSCULAR HGB CONC 33.6 % (32.0-36.0); PLATELET COUNT 121 TH/MM3 (150-450); RED BLOOD COUNT 4.88 MIL/MM3 (4.50-5.90); RED CELL DISTRIBUTION WIDTH 14.5 % (11.6-17.2); REVIEW FLAG FINAL; WHITE BLOOD COUNT 17.1 TH/MM3 (4.0-11.0)
--- NOTE | 2017-01-03 05:06 | RADRPT ---
EXAM DATE/TIME: 01/03/2017 03:27 [facility] COMPARISON: CHEST SINGLE AP, January 02, 2017, 15:35. INDICATIONS : Post CABG. MEDICAL HISTORY : Hypercholesterolemia. Diabetes mellitus type II. Hypertension. SURGICAL HISTORY : CABG. ENCOUNTER: Subsequent ACUITY: 4 - 6 days PAIN SCORE: Non-responsive. LOCATION: Bilateral chest FINDINGS: Post median sternotomy with central and left chest tubes present. Right central line in right atrium. Previous endotracheal tube and nasogastric tube have been removed. Subsegmental airspace disease in the lungs. CONCLUSION: 1. Interval extubation and removal of NG tube. Chest tubes remain present. Right central line in righ t atrium. Mild basilar airspace disease. Jason Villatoro MD on January 03, 2017 at 5:03 Board Certified Radiologist. This report was verified electronically.
[2017-01-03 05:14] LABS: BICARBONATE 26.8 MEQ/L (21.0-32.0); POTASSIUM 4.9 MEQ/L (3.5-5.1)
[2017-01-03] MEDS: INSULIN ASPART SUPPLEMENTAL SCALE SQ SCH ×5 (06:00→22:00)
[2017-01-03] MEDS: PANTOPRAZOLE SOD 40 MG DELAYED RELEASE TAB PO SCH (06:00)
[2017-01-03] MEDS: SODIUM CHLORIDE 0.9% FLUSH 10 ML FLUSH IV FLUSH SCH ×2 (08:03→21:00)
[2017-01-03] MEDS: MUPIROCIN 2% OINT 1 APPLIC/GM SYR NASAL SCH ×2 (08:03→22:54)
[2017-01-03] MEDS: ASPIRIN 81 MG CHEW TAB PO SCH (08:04)
[2017-01-03] MEDS: PRAVASTATIN SOD 40 MG TAB PO SCH (08:04)
[2017-01-03] MEDS ORDERED: SOD PHOSPHATE/SOD BIPHOSPHATE (ADULT) ENEMA 133ML RECTAL PRN (09:00)
[2017-01-03] MEDS ORDERED: BUMETANIDE INJ 1 MG/4 ML VIAL IV PUSH ONE (09:00)
[2017-01-03] MEDS ORDERED: BISACODYL 10 MG SUPP RECTAL PRN (09:00)
[2017-01-03] MEDS ORDERED: GLUCAGON 1 MG/ML VIAL OTHER PRN (09:00)
[2017-01-03] MEDS ORDERED: FUROSEMIDE 40 MG/4 ML VIAL IV PUSH ONE (09:00)
[2017-01-03] MEDS ORDERED: INSULIN DETEMIR 100 UNITS/ML VIAL SQ ONE (09:00)
[2017-01-03] MEDS ORDERED: DEXTROSE 50% IN WATER 50 ML VIAL(D50) IV PRN (09:00)
[2017-01-03] MEDS ORDERED: TIMO5SOL EACH EYE (09:11)
--- NOTE | 2017-01-03 09:35 | PD.CAR.PN ---
CVT Progress Note Subjective/Hospital Course: 76/ male admitted with chest pain + stress test, EF 53% / also found to have afib , underwent cardiac cath by Dr Messer multi vessel disease PMH: HLP, DM, HTN, arthritis , partial colectomy 2/2 diverticulitis surgery 01/02 : CABG x 3, KUMAR to LAD - good, SVG to PDA - fair , SVG to OM2 - fair, EVH extubated post surgery crystalloid 3000cc/ urine 1000cc 01/03 up in chair chest tube to wall suction NSR, pacer for short time immediately after surgery yesterday BP elevate/ start BB, eval for restarting norvasc and IRVING aggressive pulm toileting/ transfer to stepdown unit Objective: GENERAL: SKIN: Warm and dry./ prevena to chest / incision intact to leg HEAD: Normocephalic. EYES: No scleral icterus. No injection or drainage. NECK: Supple, trachea midline. No JVD or lymphadenopathy. CARDIOVASCULAR: Regular rate and rhythm without murmurs, gallops, or rubs. RESPIRATORY: few basilar crackles Breath sounds equal bilaterally. No accessory muscle use. chest tube to wall suction/ no air leak / 230cc/ 12 hrs GASTROINTESTINAL: Abdomen soft, non-tender, nondistended. MUSCULOSKELETAL: No cyanosis, or edema. BACK: Nontender without obvious deformity. No CVA tenderness. Vital Signs Date Time Temp Pulse Resp B/P Pulse Ox O2 Delivery O2 Flow Rate FiO2 01/03/17 09:05 98.2 94 17 131/84 95 94/56 01/03/17 07:37 94 Nasal Cannula 3.00 01/03/17 07:00 97.6 94 16 148/74 96 153/92 01/03/17 07:00 96 Nasal Cannula 2.00 01/03/17 07:00 94 01/03/17 03:05 98.2 89 18 141/84 97 01/03/17 03:05 98 Nasal Cannula 4.00 01/03/17 03:05 92 01/02/17 23:18 97 Nasal Cannula 4.00 01/02/17 23:18 89 01/02/17 23:18 98.0 81 18 139/87 97 01/02/17 21:30 97 Nasal Cannula 4.00 01/02/17 19:21 98 Nasal Cannula 4.00 01/02/17 19:21 97.6 77 20 128/75 98 155/81 01/02/17 19:09 97.7 01/02/17 19:00 77 01/02/17 16:45 50 01/02/17 16:39 96 Nasal Cannula 4 01/02/17 16:31 97.7 01/02/17 16:07 95 50 01/02/17 15:52 95 Mechanical Ventilator 50 01/02/17 15:45 95 60 01/02/17 15:42 97.7 01/02/17 15:40 75 01/02/17 15:15 97.7 93 10 110/60 94 120/69 01/02/17 15:15 50 01/02/17 15:12 98 60 Labs: Laboratory Tests Test 01/03/17 04:27 White Blood Count 17.1 TH/MM3 (4.0-11.0) Red Blood Count 4.88 MIL/MM3 (4.50-5.90) Hemoglobin 13.9 GM/DL (13.0-17.0) Hematocrit 41.3 % (39.0-51.0) Mean Corpuscular Volume 84.7 FL (80.0-100.0) Mean Corpuscular Hemoglobin 28.4 PG (27.0-34.0) Mean Corpuscular Hemoglobin 33.6 % Concent (32.0-36.0) Red Cell Distribution Width 14.5 % (11.6-17.2) Platelet Count 121 TH/MM3 (150-450) Mean Platelet Volume 8.3 FL (7.0-11.0) Sodium Level 140 MEQ/L (136-145) Potassium Level 4.9 MEQ/L (3.5-5.1) Chloride Level 105 MEQ/L (98-107) Carbon Dioxide Level 26.8 MEQ/L (21.0-32.0) Anion Gap 8 MEQ/L (5-15) Blood Urea Nitrogen 22 MG/DL (7-18) Creatinine 1.40 MG/DL (0.60-1.30) Estimat Glomerular Filtration 59 ML/MIN (>89) Rate Random Glucose 125 MG/DL (74-106) Calcium Level 8.5 MG/DL (8.5-10.1) Magnesium Level 3.0 MG/DL (1.5-2.5) Result Diagram: 01/03/177 01/03/17426 Telemetry: NSR (1) Atrial fibrillation Plan: back in NSR / eval to resume prophylactic amiodarone (2) Hypertension Plan: start BB / was on clonidine / irving and norvasc at home (3) Stage 3 chronic kidney disease Plan: stable. no contrast nephropathy (4) 3-vessel coronary artery disease (5) S/P CABG x 3 Plan: ASA, statin , BB keep chest tube in OOB ambulate Fiona Tan Jan 03, 2017 09:35
[2017-01-03] MEDS: METOPROLOL TARTRATE 25 MG TAB PO SCH ×2 (10:22→21:20)
[2017-01-03] MEDS: MULTIVITAMINS/MINERALS THERAPEUTIC TAB PO SCH (10:22)
[2017-01-03] MEDS: MAGNESIUM HYDROXIDE SUSP 30 ML CUP PO SCH (10:22)
[2017-01-03] MEDS: DOCUSATE SODIUM 100 MG CAP PO SCH ×2 (10:22→21:20)
[2017-01-03] MEDS ORDERED: TIMO0.5S30 EACH EYE (12:15)
--- NOTE | 2017-01-03 16:17 | HHI.PR ---
Subjective Remarks seen earlier today. Patient in nad, he is in the chair. Chest pain is controlled by meds. No sob, n/ v/d/c. Denies fever or chills. BP into a higher side will restart lisinopriol start metoprolol discussed with [facility] surgical team. Objective Vitals Vital Signs Date Time Temp Pulse Resp B/P Pulse Ox O2 Delivery O2 Flow Rate FiO2 01/03/17 16:05 86 01/03/17 16:05 98.3 85 18 119/77 94 01/03/17 16:05 94 Nasal Cannula 2.00 01/03/17 15:08 84 01/03/17 14:05 82 01/03/17 12:11 98.2 94 17 116/63 95 01/03/17 11:00 98.3 94 16 111/63 96 Arterial Line 01/03/17 11:00 96 Nasal Cannula 2.00 01/03/17 11:00 94 01/03/17 09:05 98.2 94 17 131/84 95 94/56 01/03/17 07:37 94 Nasal Cannula 3.00 01/03/17 07:00 97.6 94 16 148/74 96 153/92 01/03/17 07:00 96 Nasal Cannula 2.00 01/03/17 07:00 94 01/03/17 03:05 98.2 89 18 141/84 97 01/03/17 03:05 98 Nasal Cannula 4.00 01/03/17 03:05 92 01/02/17 23:18 97 Nasal Cannula 4.00 01/02/17 23:18 89 01/02/17 23:18 98.0 81 18 139/87 97 01/02/17 21:30 97 Nasal Cannula 4.00 01/02/17 19:21 98 Nasal Cannula 4.00 01/02/17 19:21 97.6 77 20 128/75 98 155/81 01/02/17 19:09 97.7 01/02/17 19:00 77 01/02/17 16:45 50 01/02/17 16:40 96 Nasal Cannula 4.00 01/02/17 16:39 96 Nasal Cannula 4 01/02/17 16:31 97.7 I/O 01/02/17 01/02/17 01/02/17 01/03/17 01/03/17 01/03/17 07:00 15:00 23:00 07:00 15:00 23:00 Intake Total 670 ml 2420 ml 1630 ml 600 ml Output Total 1500 ml 485 ml 1512 ml 360 ml Balance -830 ml 1935 ml 118 ml 240 ml Intake Oral 540 ml 20 ml 960 ml 450 ml IV Total 130 ml 2400 ml 670 ml 150 ml Output Urine Total 1500 ml 375 ml 1282 ml 300 ml Chest Tube Drainage Total 230 ml 60 ml Drainage Total 110 ml # Bowel Movements 0 0 0 0 Result Diagram: 01/03/1742601/03/17426 Imaging Last Impressions Chest X-Ray 01/03/17 0500 Signed Impressions: Service Date/Time: Tuesday, January 03, 2017 03:27 - CONCLUSION: 1. Interval extubation and removal of NG tube. Chest tubes remain present. Right central line in right atrium. Mild basilar airspace disease. Jason Villatoro MD Lower Extremity Ultrasound 12/30/16 0000 Signed Impressions: Service Date/Time: Friday, December 30, 2016 15:20 - CONCLUSION: 1. No DVT identified. Size measurements are given above. Pravin Boyer MD Carotid Artery Ultrasound 12/30/16 0000 Signed Impressions: Service Date/Time: Friday, December 30, 2016 14:48 - CONCLUSION: 1. Limited examination. The vertebral arteries could not be identified. This is felt to be secondary to the patient's neck size. 2. Study would suggest at least a moderate grade stenosis in the right internal carotid origin. 3. No hemodynamically significant stenosis seen at the origin of the left internal carotid. Pravin Boyer MD Myocardial Perfusion Scan Nuc Med 12/29/16 0000 Signed Impressions: Service Date/Time: December 12:35 - CONCLUSION: 1. Differential perfusion defect in the low inferior lateral wall characteristic of an old watershed infarct. 2. Focal areas of about 20%% redistribution in portions of the inferior wall concerning for ischemia. 3. Preserved wall motion with estimated ejection fraction of 53%%. RISK CATEGORY: Low (<1%% Annual Mortality Rate) Miguel Spence MD Objective Remarks GENERAL: This is a well-nourished, well-developed patient, in no apparent distress. SKIN: No rashes, ecchymoses or lesions. Cool and dry. HEAD: Atraumatic. Normocephalic. No temporal or scalp tenderness. EYES: Pupils equal round and reactive. Extraocular motions intact. No scleral icterus. No injection or drainage. ENT: Nose without bleeding, purulent drainage or septal hematoma. Throat without erythema, tonsillar hypertrophy or exudate. Uvula midline. Airway patent. NECK: Trachea midline. No JVD or lymphadenopathy. Supple, nontender, no meningeal signs. CARDIOVASCULAR: Regular rate and rhythm without murmurs, gallops, or rubs. RESPIRATORY: Clear to auscultation. Breath sounds equal bilaterally. No wheezes , rales, or rhonchi. GASTROINTESTINAL: Abdomen soft, non-tender, nondistended. No hepato-splenomegaly , or palpable masses. No guarding. MUSCULOSKELETAL: Extremities without clubbing, cyanosis, or edema. No joint tenderness, effusion, or edema noted. No calf tenderness. Negative Homans sign bilaterally. NEUROLOGICAL: Awake and alert. Cranial nerves II through XII intact. Motor and sensory grossly within normal limits. Five out of 5 muscle strength in all muscle groups. Normal speech. Procedures 12/31/[address] Kate Messer 01/02/[address] Ayers: CABG x 3 KUMAR to LAD - good SVG to PDA - fair SVG to OM2 - fair EVH A/P Assessment and Plan 76-year-old male past medical history of type 2 diabetes, hypertension, hyperlipidemia who presented with Atypical chest pain 2/2 3 vessel CAD Troponin negative x3. Patient with positive nuclear stress test. Cardiology consulted. S/P cardiac cath 12/30. Patient with 3 vessel CAD. ECHO. Continue medical management Consult CTS for evaluation, appreciate recommendations. S/P CABG on 01/02/17 Start BB metoprolol 25 mg po bid. Start IRVING if BP permits. anticoagulation when cleared by surgeon Cardiology consulted , appreciate recommendations Monitor VS closely CKD -do not have a recent baseline. last Cr and GRF in 2010 and was normal. -unsure if this is acute. Looking at patient's diagnosis most likely chronic. -continue to monitor. -avoid nephrotoxins. Atrial fibrillation, persistent -Patient has been in A. fib for least 1 week. -[id number] score if 4. He would benefit from anticoagulation based on his score. Educated patient extensively on the risks, benefits, and side effects of anticoagulations in decreasing risk of cardioembolic stroke. Patient stated that he understands and he would like to pursue treatment. Options were discussed with patient and he stated that he would like a medication that he would not have to monitor. restart Eliquis when cleared by surgeon. Elevated INR -Patient is not on any medication or does not show any signs of liver failure that would cause an elevated INR. INR was repeated and it was in normal range. most likely a lab mistake. Type 2 diabetes -Educated patient extensively on the consistency of diet. Since patient stated that he wouldn't eat for days and then when he developed tremors he would start eating a lot of food. Most likely during this time he is becoming hypoglycemic. -Will get hemoglobin A1c. Continue home regimen and put patient on insulin sliding scale. Hyperlipidemia/hypertension/os arthritis -Resume home medication. -Will get a lipid panel in the a.m. DVT prophylaxis -lovenox Code Status full Discussed Condition With Discussed with patient, nurse, family at bedside, Fiona Varner CTS team Lisbeth Smallwood MD Jan 03, 2017 16:17
[2017-01-03] MEDS: TIMOLOL MALEATE 0.5% OPHT SOLN 5 ML BTL EACH EYE SCH (21:00)
[2017-01-03] MEDS: SENNOSIDES 8.6 MG TAB PO SCH (21:20)
[2017-01-04] VITALS (29 sets, daily range): BP systolic 103–135; BP diastolic 77–95; PULSE 80–105; RESP 18–20; TEMP 97.7–98.2; O2SAT 91–97
[2017-01-04] MEDS: INSULIN ASPART SUPPLEMENTAL SCALE SQ SCH ×5 (02:00→21:00)
[2017-01-04] MEDS: PANTOPRAZOLE SOD 40 MG DELAYED RELEASE TAB PO SCH (05:18)
[2017-01-04] MEDS: traMADol HCL 50 MG TAB PO PRN ×3 (05:18→22:13)
[2017-01-04 06:48] LABS: BICARBONATE 28.5 MEQ/L (21.0-32.0); MAGNESIUM 3.4 MG/DL (1.5-2.5); POTASSIUM 4.8 MEQ/L (3.5-5.1)
[2017-01-04 07:05] LABS: BASOPHIL % 0.2 % (0.0-2.0); HEMATOCRIT 41.4 % (39.0-51.0); HEMO FLAGS DIFF FINAL; LYMPH % 8.2 % (9.0-44.0); LYMPHOCYTE # 1.4 TH/MM3 (1.0-4.8); MEAN CELL VOLUME 85.4 FL (80.0-100.0); MEAN CORPUSCULAR HEMOGLOBIN 27.7 PG (27.0-34.0); MEAN CORPUSCULAR HGB CONC 32.5 % (32.0-36.0); MONO % 12.1 % (0.0-8.0); NEUT % 79.5 % (16.0-70.0); PLATELET COUNT 123 TH/MM3 (150-450); RED BLOOD COUNT 4.85 MIL/MM3 (4.50-5.90); RED CELL DISTRIBUTION WIDTH 14.9 % (11.6-17.2); WHITE BLOOD COUNT 17.6 TH/MM3 (4.0-11.0)
[2017-01-04] MEDS: RESP: ALBUTEROL 2.5 MG/IPRATROPIUM 0.5 MG NEB (SCH) NEB ×3 (07:28→18:54)
--- NOTE | 2017-01-04 07:36 | HHI.PR ---
Subjective Remarks In the chair. Chest tube in place. He is asking when can be removed, as he wants to go home. Had some sob last night. He says she is not sob no. No chest pain, lightheadedness, palpitations. No n/v/d. No cough or fevers. Objective Vitals Vital Signs Date Time Temp Pulse Resp B/P Pulse Ox O2 Delivery O2 Flow Rate FiO2 01/04/17 06:00 92 01/04/17 04:00 97 Nasal Cannula 2.00 01/04/17 04:00 98.0 97 18 124/87 97 01/04/17 02:00 93 01/04/17 01:00 91 01/04/17 00:17 100 01/04/17 00:00 98.0 87 18 125/82 97 01/04/17 00:00 97 Nasal Cannula 2.00 01/03/17 21:39 91 21 01/03/17 20:00 80 01/03/17 20:00 98.0 80 18 134/82 97 01/03/17 20:00 97 Nasal Cannula 2.00 01/03/17 19:10 95 Nasal Cannula 2.00 01/03/17 18:05 84 01/03/17 17:26 82 01/03/17 16:05 86 01/03/17 16:05 98.3 85 18 119/77 94 01/03/17 16:05 94 Nasal Cannula 2.00 01/03/17 15:08 84 01/03/17 14:05 82 01/03/17 12:11 98.2 94 17 116/63 95 01/03/17 11:00 98.3 94 16 111/63 96 Arterial Line 01/03/17 11:00 96 Nasal Cannula 2.00 01/03/17 11:00 94 01/03/17 09:05 98.2 94 17 131/84 95 94/56 01/03/17 07:37 94 Nasal Cannula 3.00 I/O 01/03/17 01/03/17 01/03/17 01/04/17 01/04/17 01/04/17 07:00 15:00 23:00 07:00 15:00 23:00 Intake Total 1630 ml 600 ml 710 ml 480 ml Output Total 1512 ml 360 ml 150 ml 440 ml Balance 118 ml 240 ml 560 ml 40 ml Intake Oral 960 ml 450 ml 460 ml 480 ml IV Total 670 ml 150 ml 250 ml Output Urine Total 1282 ml 300 ml 100 ml 400 ml Chest Tube Drainage Total 230 ml 60 ml 50 ml 40 ml # Bowel Movements 0 0 Result Diagram: 01/04/17 0551 01/04/17 0551 Imaging Last Impressions Chest X-Ray 01/03/17 0500 Signed Impressions: Service Date/Time: Tuesday, January 03, 2017 03:27 - CONCLUSION: 1. Interval extubation and removal of NG tube. Chest tubes remain present. Right central line in right atrium. Mild basilar airspace disease. Jason Villatoro MD Lower Extremity Ultrasound 12/30/16 0000 Signed Impressions: Service Date/Time: Friday, December 30, 2016 15:20 - CONCLUSION: 1. No DVT identified. Size measurements are given above. Pravin Boyer MD Carotid Artery Ultrasound 12/30/16 0000 Signed Impressions: Service Date/Time: Friday, December 30, 2016 14:48 - CONCLUSION: 1. Limited examination. The vertebral arteries could not be identified. This is felt to be secondary to the patient's neck size. 2. Study would suggest at least a moderate grade stenosis in the right internal carotid origin. 3. No hemodynamically significant stenosis seen at the origin of the left internal carotid. Pravin Boyer MD Myocardial Perfusion Scan Nuc Med 12/29/16 0000 Signed Impressions: Service Date/Time: December 12:35 - CONCLUSION: 1. Differential perfusion defect in the low inferior lateral wall characteristic of an old watershed infarct. 2. Focal areas of about 20%% redistribution in portions of the inferior wall concerning for ischemia. 3. Preserved wall motion with estimated ejection fraction of 53%%. RISK CATEGORY: Low (<1%% Annual Mortality Rate) Miguel Spence MD Objective Remarks GENERAL: This is a well-nourished, well-developed patient, in no apparent distress. SKIN: No rashes, ecchymoses or lesions. Cool and dry. HEAD: Atraumatic. Normocephalic. No temporal or scalp tenderness. EYES: Pupils equal round and reactive. Extraocular motions intact. No scleral icterus. No injection or drainage. ENT: Nose without bleeding, purulent drainage or septal hematoma. Throat without erythema, tonsillar hypertrophy or exudate. Uvula midline. Airway patent. NECK: Trachea midline. No JVD or lymphadenopathy. Supple, nontender, no meningeal signs. CARDIOVASCULAR: Chest tube in place. Regular rate and rhythm without murmurs, gallops, or rubs. RESPIRATORY: Clear to auscultation. Breath sounds equal bilaterally. No wheezes , rales, or rhonchi. GASTROINTESTINAL: Abdomen soft, non-tender, nondistended. No hepato-splenomegaly , or palpable masses. No guarding. MUSCULOSKELETAL: Extremities without clubbing, cyanosis, or edema. No joint tenderness, effusion, or edema noted. No calf tenderness. Negative Homans sign bilaterally. NEUROLOGICAL: Awake and alert. Cranial nerves II through XII intact. Motor and sensory grossly within normal limits. Five out of 5 muscle strength in all muscle groups. Normal speech. Procedures 12/31/[address] Kate Messer 01/02/[address] Ayers: CABG x 3 KUMAR to LAD - good SVG to PDA - fair SVG to OM2 - fair EVH A/P Assessment and Plan 76-year-old male past medical history of type 2 diabetes, hypertension, hyperlipidemia who presented with Atypical chest pain 2/2 3 vessel CAD Troponin negative x3. Patient with positive nuclear stress test. Cardiology consulted. S/P cardiac cath 12/30. Patient with 3 vessel CAD. ECHO. Continue medical management Consult CTS for evaluation, appreciate recommendations. S/P CABG on 01/02/17 Start BB metoprolol 25 mg po bid. Start IRVING if BP permits. anticoagulation when cleared by surgeon Cardiology consulted , appreciate recommendations Monitor VS closely CKD -do not have a recent baseline. last Cr and GRF in 2010 and was normal. -unsure if this is acute. Looking at patient's diagnosis most likely chronic. -continue to monitor. -avoid nephrotoxins. Atrial fibrillation, persistent -Patient has been in A. fib for least 1 week. -[id number] score if 4. He would benefit from anticoagulation based on his score. Educated patient extensively on the risks, benefits, and side effects of anticoagulations in decreasing risk of cardioembolic stroke. Patient stated that he understands and he would like to pursue treatment. Options were discussed with patient and he stated that he would like a medication that he would not have to monitor. restart Eliquis when cleared by surgeon. Elevated INR -Patient is not on any medication or does not show any signs of liver failure that would cause an elevated INR. INR was repeated and it was in normal range. most likely a lab mistake. Type 2 diabetes -Educated patient extensively on the consistency of diet. Since patient stated that he wouldn't eat for days and then when he developed tremors he would start eating a lot of food. Most likely during this time he is becoming hypoglycemic. -Will get hemoglobin A1c. Continue home regimen and put patient on insulin sliding scale. Hyperlipidemia/hypertension/os arthritis -Resume home medication. -Will get a lipid panel in the a.m. DVT prophylaxis -lovenox Code Status full Discussed Condition With Discussed with patient, nurse, family at bedside Lisbeth Smallwood MD Jan 04, 2017 07:36
--- NOTE | 2017-01-04 08:22 | EKG ---
Date Performed: 01/03/2017 Time Performed: 04:59:36 PTAGE: 76 years EKG: Sinus rhythm Inferior infarct - age undetermined Low QRS voltages in limb leads Abnormal ECG Compared to PREVIOUS TRACING , the atrial fibrillation has resolved. The patient now has anterior T-w ave changes that are nonpsecific but myocardial ischemia needs to excluded clinically. PREVIOUS VY N12/31/2016 05.45 DOCTOR: Magda Law Interpretating Date/Time 01/04/2017 08:20:57
[2017-01-04] MEDS: TIMOLOL MALEATE 0.5% OPHT SOLN 5 ML BTL EACH EYE SCH ×2 (09:00→21:00)
[2017-01-04] MEDS: POLYETHYLENE GLYCOL 17 GM PKG PO SCH (09:00)
[2017-01-04] MEDS: DOCUSATE SODIUM 100 MG CAP PO SCH ×2 (09:00→22:09)
[2017-01-04] MEDS: SODIUM CHLORIDE 0.9% FLUSH 10 ML FLUSH IV FLUSH SCH ×2 (09:00→21:00)
[2017-01-04] MEDS: METOPROLOL TARTRATE 25 MG TAB PO SCH ×3 (09:01→22:09)
[2017-01-04] MEDS: MAGNESIUM HYDROXIDE SUSP 30 ML CUP PO SCH (09:01)
[2017-01-04] MEDS: MULTIVITAMINS/MINERALS THERAPEUTIC TAB PO SCH (09:01)
[2017-01-04] MEDS: MUPIROCIN 2% OINT 1 APPLIC/GM SYR NASAL SCH ×2 (09:01→22:09)
[2017-01-04] MEDS: PRAVASTATIN SOD 40 MG TAB PO SCH (09:02)
[2017-01-04] MEDS: ASPIRIN 81 MG CHEW TAB PO SCH (09:02)
[2017-01-04] MEDS ORDERED: AMIODARONE 200 MG TAB PO SCH (11:00)
--- NOTE | 2017-01-04 12:16 | PD.CAR.PN ---
CVT Progress Note CVT: POD #: 2 Subjective/Hospital Course: 76/ male admitted with chest pain + stress test, EF 53% / also found to have afib , underwent cardiac cath by Dr Messer multi vessel disease PMH: HLP, DM, HTN, arthritis , partial colectomy 2/2 diverticulitis surgery 01/02 : CABG x 3, KUMAR to LAD - good, SVG to PDA - fair , SVG to OM2 - fair, EVH extubated post surgery crystalloid 3000cc/ urine 1000cc 01/03 up in chair chest tube to wall suction NSR, pacer for short time immediately after surgery yesterday BP elevate/ start BB, eval for restarting norvasc and IRVING aggressive pulm toileting/ transfer to stepdown unit 01/04 HR 90-100, BP stable , increase BB chest tubes and A/V wires removed Eder V score 4/ start eliquis tonight ambulate, pulm toileting Objective: GENERAL: SKIN: Warm and dry.prevena to chest , leg incision intact HEAD: Normocephalic. EYES: No scleral icterus. No injection or drainage. NECK: Supple, trachea midline. No JVD or lymphadenopathy. CARDIOVASCULAR: irregular rate and rhythm without murmurs, gallops, or rubs. RESPIRATORY: diminished in bases Breath sounds equal bilaterally. No accessory muscle use. GASTROINTESTINAL: Abdomen soft, non-tender, nondistended. MUSCULOSKELETAL: No cyanosis, or edema. BACK: Nontender without obvious deformity. No CVA tenderness. Vital Signs Date Time Temp Pulse Resp B/P Pulse Ox O2 Delivery O2 Flow Rate FiO2 01/04/17 10:01 88 01/04/17 09:00 100 01/04/17 08:45 92 Nasal Cannula 3.00 01/04/17 08:45 98.0 105 20 129/90 92 01/04/17 08:00 96 01/04/17 07:00 92 01/04/17 06:00 92 01/04/17 04:00 97 Nasal Cannula 2.00 01/04/17 04:00 98.0 97 18 124/87 97 01/04/17 02:00 93 01/04/17 01:00 91 01/04/17 00:17 100 01/04/17 00:00 98.0 87 18 125/82 97 01/04/17 00:00 97 Nasal Cannula 2.00 01/03/17 21:39 91 21 01/03/17 20:00 80 01/03/17 20:00 98.0 80 18 134/82 97 01/03/17 20:00 97 Nasal Cannula 2.00 01/03/17 19:10 95 Nasal Cannula 2.00 01/03/17 18:05 84 01/03/17 17:26 82 01/03/17 16:05 86 01/03/17 16:05 98.3 85 18 119/77 94 01/03/17 16:05 94 Nasal Cannula 2.00 01/03/17 15:08 84 01/03/17 14:05 82 01/03/17 12:11 98.2 94 17 116/63 95 Labs: Laboratory Tests Test 01/04/17 05:51 White Blood Count 17.6 TH/MM3 (4.0-11.0) Red Blood Count 4.85 MIL/MM3 (4.50-5.90) Hemoglobin 13.5 GM/DL (13.0-17.0) Hematocrit 41.4 % (39.0-51.0) Mean Corpuscular Volume 85.4 FL (80.0-100.0) Mean Corpuscular Hemoglobin 27.7 PG (27.0-34.0) Mean Corpuscular Hemoglobin 32.5 % Concent (32.0-36.0) Red Cell Distribution Width 14.9 % (11.6-17.2) Platelet Count 123 TH/MM3 (150-450) Mean Platelet Volume 8.9 FL (7.0-11.0) Neutrophils (%) (Auto) 79.5 % (16.0-70.0) Lymphocytes (%) (Auto) 8.2 % (9.0-44.0) Monocytes (%) (Auto) 12.1 % (0.0-8.0) Eosinophils (%) (Auto) 0.0 % (0.0-4.0) Basophils (%) (Auto) 0.2 % (0.0-2.0) Neutrophils # (Auto) 14.0 TH/MM3 (1.8-7.7) Lymphocytes # (Auto) 1.4 TH/MM3 (1.0-4.8) Monocytes # (Auto) 2.1 TH/MM3 (0-0.9) Eosinophils # (Auto) 0.0 TH/MM3 (0-0.4) Basophils # (Auto) 0.0 TH/MM3 (0-0.2) CBC Comment DIFF FINAL Differential Comment Sodium Level 140 MEQ/L (136-145) Potassium Level 4.8 MEQ/L (3.5-5.1) Chloride Level 104 MEQ/L (98-107) Carbon Dioxide Level 28.5 MEQ/L (21.0-32.0) Anion Gap 8 MEQ/L (5-15) Blood Urea Nitrogen 28 MG/DL (7-18) Creatinine 1.66 MG/DL (0.60-1.30) Estimat Glomerular Filtration 49 ML/MIN (>89) Rate Random Glucose 130 MG/DL (74-106) Calcium Level 8.8 MG/DL (8.5-10.1) Magnesium Level 3.4 MG/DL (1.5-2.5) Result Diagram: 01/04/17 0551 01/04/17 0551 Telemetry: afib rate controlled (1) Atrial fibrillation Plan: afib / rate 90-100 increase BB discussed with Dr Messer, VHAD v score 4 start eliquis this pm (2) Hypertension Plan: t BB / was on clonidine / may add home dose of irving and norvasc at home (3) Stage 3 chronic kidney disease Plan: stable. no contrast nephropathy (4) 3-vessel coronary artery disease (5) S/P CABG x 3 Plan: ASA, statin , BB chest tube and A/V wires removed OOB ambulate pulm toileting (6) Obstructive sleep apnea Plan: CPAP at night Fiona Tan Jan 04, 2017 12:15
[2017-01-04] MEDS: SENNOSIDES 8.6 MG TAB PO SCH (21:00)
[2017-01-04] MEDS: APIXABAN 2.5 MG TABLET PO SCH (22:09)
[2017-01-05] VITALS (28 sets, daily range): BP systolic 122–143; BP diastolic 82–93; PULSE 72–108; RESP 12–20; TEMP 97.4–99; O2SAT 91–98
[2017-01-05] MEDS: PANTOPRAZOLE SOD 40 MG DELAYED RELEASE TAB PO SCH (05:52)
[2017-01-05] MEDS: METOPROLOL TARTRATE 25 MG TAB PO SCH (05:52)
[2017-01-05] MEDS: INSULIN ASPART SUPPLEMENTAL SCALE SQ SCH ×4 (06:04→20:37)
[2017-01-05 06:52] LABS: MEAN CELL VOLUME 86.4 FL (80.0-100.0); MEAN CORPUSCULAR HEMOGLOBIN 27.8 PG (27.0-34.0); MEAN CORPUSCULAR HGB CONC 32.2 % (32.0-36.0); PLATELET COUNT 119 TH/MM3 (150-450); RED BLOOD COUNT 4.75 MIL/MM3 (4.50-5.90); RED CELL DISTRIBUTION WIDTH 14.7 % (11.6-17.2); REVIEW FLAG FINAL; WHITE BLOOD COUNT 15.5 TH/MM3 (4.0-11.0)
--- NOTE | 2017-01-05 07:03 | HHI.PR ---
Subjective Remarks Says he feels much better today and he wants to go home. Denies any fever or chills. No n/v/d/c. No chest pain, sob, n/v/d/c. Objective Vitals Vital Signs Date Time Temp Pulse Resp B/P Pulse Ox O2 Delivery O2 Flow Rate FiO2 01/05/17 03:24 82 01/05/17 03:24 97 Nasal Cannula 2.00 01/05/17 03:23 98 30 01/05/17 02:00 106 01/05/17 01:00 97 30 01/05/17 01:00 72 01/05/17 00:00 98.2 80 18 122/85 97 01/05/17 00:00 97 Nasal Cannula 2.00 01/04/17 21:29 94 21 01/04/17 20:00 97 Nasal Cannula 2.00 01/04/17 20:00 98.2 95 18 135/95 97 01/04/17 20:00 80 01/04/17 19:00 95 01/04/17 18:54 94 Nasal Cannula 2.00 01/04/17 18:00 86 01/04/17 17:00 94 01/04/17 16:00 98 01/04/17 15:30 92 Nasal Cannula 2.00 01/04/17 15:30 97.7 94 20 119/81 91 01/04/17 15:00 92 01/04/17 14:00 88 01/04/17 13:35 94 Nasal Cannula 2.00 01/04/17 13:01 92 01/04/17 12:00 88 01/04/17 11:30 97.8 95 20 103/77 97 01/04/17 11:30 92 Nasal Cannula 2.00 01/04/17 11:00 102 01/04/17 10:01 88 01/04/17 09:00 100 01/04/17 08:45 92 Nasal Cannula 3.00 01/04/17 08:45 98.0 105 20 129/90 92 01/04/17 08:00 96 I/O 01/04/17 01/04/17 01/04/17 01/05/17 01/05/17 01/05/17 07:00 15:00 23:00 07:00 15:00 23:00 Intake Total 480 ml 480 ml Output Total 440 ml 500 ml Balance 40 ml -20 ml Intake Oral 480 ml 480 ml Output Urine Total 400 ml 500 ml Chest Tube Drainage Total 40 ml # Voids 6 # Bowel Movements 1 Result Diagram: 01/05/17 0500 01/04/17 0551 Imaging Last Impressions Chest X-Ray 01/03/17 0500 Signed Impressions: Service Date/Time: Tuesday, January 03, 2017 03:27 - CONCLUSION: 1. Interval extubation and removal of NG tube. Chest tubes remain present. Right central line in right atrium. Mild basilar airspace disease. Jason Villatoro MD Lower Extremity Ultrasound 12/30/16 0000 Signed Impressions: Service Date/Time: Friday, December 30, 2016 15:20 - CONCLUSION: 1. No DVT identified. Size measurements are given above. Pravin Boyer MD Carotid Artery Ultrasound 12/30/16 0000 Signed Impressions: Service Date/Time: Friday, December 30, 2016 14:48 - CONCLUSION: 1. Limited examination. The vertebral arteries could not be identified. This is felt to be secondary to the patient's neck size. 2. Study would suggest at least a moderate grade stenosis in the right internal carotid origin. 3. No hemodynamically significant stenosis seen at the origin of the left internal carotid. Pravin Boyer MD Myocardial Perfusion Scan Nuc Med 12/29/16 0000 Signed Impressions: Service Date/Time: December 12:35 - CONCLUSION: 1. Differential perfusion defect in the low inferior lateral wall characteristic of an old watershed infarct. 2. Focal areas of about 20%% redistribution in portions of the inferior wall concerning for ischemia. 3. Preserved wall motion with estimated ejection fraction of 53%%. RISK CATEGORY: Low (<1%% Annual Mortality Rate) Miguel Spence MD Objective Remarks GENERAL: This is a well-nourished, well-developed patient, in no apparent distress. SKIN: No rashes, ecchymoses or lesions. Cool and dry. HEAD: Atraumatic. Normocephalic. No temporal or scalp tenderness. EYES: Pupils equal round and reactive. Extraocular motions intact. No scleral icterus. No injection or drainage. ENT: Nose without bleeding, purulent drainage or septal hematoma. Throat without erythema, tonsillar hypertrophy or exudate. Uvula midline. Airway patent. NECK: Trachea midline. No JVD or lymphadenopathy. Supple, nontender, no meningeal signs. CARDIOVASCULAR: Chest tube removed 01/04. Regular rate and rhythm without murmurs , gallops, or rubs. RESPIRATORY: Clear to auscultation. Breath sounds equal bilaterally. No wheezes , rales, or rhonchi. GASTROINTESTINAL: Abdomen soft, non-tender, nondistended. No hepato-splenomegaly , or palpable masses. No guarding. MUSCULOSKELETAL: Extremities without clubbing, cyanosis, or edema. No joint tenderness, effusion, or edema noted. No calf tenderness. Negative Homans sign bilaterally. NEUROLOGICAL: Awake and alert. Cranial nerves II through XII intact. Motor and sensory grossly within normal limits. Five out of 5 muscle strength in all muscle groups. Normal speech. Procedures 12/31/[address] Kate Messer 01/02/[address] Ayers: CABG x 3 KUMAR to LAD - good SVG to PDA - fair SVG to OM2 - fair EVH A/P Assessment and Plan 76-year-old male past medical history of type 2 diabetes, hypertension, hyperlipidemia who presented with Atypical chest pain 2/2 multivessel CAD + stress test, EF 53% s/p cardiac cath 12/[address] Messer multi vessel disease Afib S/P surgery 01/02 : CABG x 3, KUMAR to LAD - good, SVG to PDA - fair , SVG to OM2 - fair, EVH Troponin negative x3. Continue medical management Consult CTS for evaluation, appreciate recommendations. S/P CABG on 01/02/17 Continue BB metoprolol 25 mg po bid, continue statin. Chest tube removed 01/04. Start eliquis per surgery Cardiology Dr Messer, CTS Dr Ventura, appreciate recommendations Monitor VS closely CKD -do not have a recent baseline. last Cr and GRF in 2010 and was normal. -unsure if this is acute. Looking at patient's diagnosis most likely chronic. -continue to monitor. -avoid nephrotoxins. Atrial fibrillation, persistent -Patient has been in A. fib for least 1 week. -[id number] score if 4. He would benefit from anticoagulation based on his score. Educated patient extensively on the risks, benefits, and side effects of anticoagulations in decreasing risk of cardioembolic stroke. Patient stated that he understands and he would like to pursue treatment. Options were discussed with patient and he stated that he would like a medication that he would not have to monitor. restart Eliquis when cleared by surgeon. Elevated INR -Patient is not on any medication or does not show any signs of liver failure that would cause an elevated INR. INR was repeated and it was in normal range. most likely a lab mistake. Type 2 diabetes -Educated patient extensively on the consistency of diet. Since patient stated that he wouldn't eat for days and then when he developed tremors he would start eating a lot of food. Most likely during this time he is becoming hypoglycemic. -Will get hemoglobin A1c. Continue home regimen and put patient on insulin sliding scale. Hyperlipidemia/hypertension/os arthritis -Resume home medication. -Will get a lipid panel in the a.m. DVT prophylaxis -lovenox Code Status full Discussed Condition With Discussed with patient, nurse Lisbeth Smallwood MD Jan 05, 2017 07:03
--- NOTE | 2017-01-05 07:15 | HHI.DS ---
Discharge Summary Admission Date Dec 30, 2016 at 09:32 Admitting Diagnosis chest pain, dyspnea on exertion Procedures 12/31/[address] Kate Messer 01/02/[address] Ayers: CABG x 3 KUMAR to LAD - good SVG to PDA - fair SVG to OM2 - fair EVH Brief History - From Admission This is a 76-year-old male with a past medical history of hypertension, type 2 diabetes, and hyperlipidemia who presented with chest pain. Patient stated that he was seen prior and clinic and stated that he complained about having severe tremors when he does not eat for days. Patient stated that he wouldn't eat for days and it would have tremors that improved with by mouth intake. Patient stated that when this happens he would have chest pain and chest pain usually resolves with food. Chest pain has been intermittent with these episodes but he stated that today it was longer. Patient stated that it had occurred since yesterday and had not resolved. Patient stated he took some aspirin and medication for his headache which did help the chest pain. He stated nothing made the chest pain worse. Chest pain was nonradiating and he rated it about 3 out of 10 at the moment. He denies any nausea vomiting or diaphoresis with this chest pain. Patient also stated that he presented to the emergency department because he was told by his nurse that he had atrial fibrillation that we discover a week ago and asked why he is here. Patient stated that he has no family history of cardiovascular disease but does admit that almost all family members have diabetes. Patient stated he stopped smoking cigar 15 years ago. CBC/BMP: 01/05/17 0500 01/04/17 0551 Significant Findings Laboratory Tests Test 01/03/17 01/04/17 01/05/17 04:27 05:51 05:00 White Blood Count 17.1 TH/MM3 17.6 TH/MM3 15.5 TH/MM3 (4.0-11.0) (4.0-11.0) (4.0-11.0) Platelet Count 121 TH/MM3 123 TH/MM3 119 TH/MM3 (150-450) (150-450) (150-450) Blood Urea Nitrogen 22 MG/DL (7-18) 28 MG/DL (7-18) Creatinine 1.40 MG/DL 1.66 MG/DL (0.60-1.30) (0.60-1.30) Estimat Glomerular Filtration 59 ML/MIN (>89) 49 ML/MIN (>89) Rate Random Glucose 125 MG/DL 130 MG/DL (74-106) (74-106) Magnesium Level 3.0 MG/DL 3.4 MG/DL (1.5-2.5) (1.5-2.5) Neutrophils (%) (Auto) 79.5 % (16.0-70.0) Lymphocytes (%) (Auto) 8.2 % (9.0-44.0) Monocytes (%) (Auto) 12.1 % (0.0-8.0) Neutrophils # (Auto) 14.0 TH/MM3 (1.8-7.7) Monocytes # (Auto) 2.1 TH/MM3 (0-0.9) PE at Discharge GENERAL: This is a well-nourished, well-developed patient, in no apparent distress. SKIN: No rashes, ecchymoses or lesions. Cool and dry. HEAD: Atraumatic. Normocephalic. No temporal or scalp tenderness. EYES: Pupils equal round and reactive. Extraocular motions intact. No scleral icterus. No injection or drainage. ENT: Nose without bleeding, purulent drainage or septal hematoma. Throat without erythema, tonsillar hypertrophy or exudate. Uvula midline. Airway patent. NECK: Trachea midline. No JVD or lymphadenopathy. Supple, nontender, no meningeal signs. CARDIOVASCULAR: Chest tube removed 01/04. Regular rate and rhythm without murmurs , gallops, or rubs. RESPIRATORY: Clear to auscultation. Breath sounds equal bilaterally. No wheezes , rales, or rhonchi. GASTROINTESTINAL: Abdomen soft, non-tender, nondistended. No hepato-splenomegaly , or palpable masses. No guarding. MUSCULOSKELETAL: Extremities without clubbing, cyanosis, or edema. No joint tenderness, effusion, or edema noted. No calf tenderness. Negative Homans sign bilaterally. NEUROLOGICAL: Awake and alert. Cranial nerves II through XII intact. Motor and sensory grossly within normal limits. Five out of 5 muscle strength in all muscle groups. Normal speech. Pt Condition on Discharge: Stable Discharge Disposition: Disch w/ Home Health Serv Discharge Instructions DIET: Follow Instructions for: Heart Healthy Diet Activities you can perform: Regular-No Restrictions, See Additionl Instruction Other Activity Instructions: per surgeon recommendations Lisbeth Smallwood MD Jan 05, 2017 07:15
[2017-01-05] MEDS ORDERED: COLA100C3 PO (07:17)
[2017-01-05] MEDS ORDERED: METO25TA3 PO (07:17)
[2017-01-05] MEDS ORDERED: APIX2.5T PO (07:17)
--- NOTE | 2017-01-05 07:19 | HHI.FF ---
Face to Face Verification Diagnosis: (1) S/P CABG x 3 (2) Atrial fibrillation (3) Unstable angina pectoris (4) Hypertension (5) 3-vessel coronary artery disease (6) Stage 3 chronic kidney disease (7) Chest pain (8) Dyspnea on exertion (9) Obstructive sleep apnea Physical Therapy Order: Evaluate and Treat Home Health Nursing Order: Medical education Signs/symptoms of disease process Medication education-adverse effect Wound care and dressing changes Nursing assessment with vital signs Instructions: Heart and Vascular Surgery patients *Special attention to sternal dressing Mandatory frequency Assess and evaluation, 4 days in a row The next week 3X week 2 times a week for 4 weeks 1 time a week for 5 weeks Schedule Heart and Vascular patients for full 60 day certification period Initial visit Review Open Heart Surgery Discharge Instructions (Sternal precautions, Activity, Elastic hose, Incision care, Driving, Incentive spirometry, Smoking, [place], Work and other) Need Betadine to paint incision Medication reconciliation Importance of follow up care/ check on appointments Make calendar record temperature daily When to call [facility] Home nurse, review instructions, phone list Incentive Spirometry, demonstration Visit 1- Begin discharge instruction for patient family and/ or caregiver using teach back method- Signs and symptoms of infection Disease characteristics Medicines and side effects Foods and nutrition/ appetite Infection control/ hand washing/ hygiene Visit 2- Continue teaching Discharge instructions- include additional information on smoking cessation , sternal dressing (sternal vac) Visit 3- Continue teaching- Cough and deep breathing, incision monitoring. Choose my plate Visit 4- Continue teaching- Discuss limitations Discuss how they are feeling Discuss progress toward goals Remaining visits- continue teaching and monitoring Incentive spirometry Q1 hr x 10, while awake, also use acapella device hourly whole awake Sternal Breast Bone Precautions: NO pushing or pulling, ( pt must use sternal pillow to support chest with all activities and with coughing ( takes up to 3 months breast bone to heal ) Daily incision care: ok to shower daily, no tub bath. Wash all incisions with liquid dial soap, clean wash cloth to each site, rinse and pat dry. Observe for any signs of infection, such as drainage which is dark yellow, mcelroy, green or foul smelling. Immediately report to the surgeon any drainage from the chest incision, or legs, and for any abnormal drainage from the chest tube sites. Notify surgeon if any temp >101.5 degrees F. When specialty dressing removed/ or if you do not have one, continue to shower daily as above, then rinse and pat incision dry and paint with betadine daily x 5 days. Allow steri strips to fall off if you have any. Avoid lotions, creams, salves, oils, etc. for the first month Please see attached forms for additional instructions regarding post Open Heart specialty wound vacuum dressings. XIMENA or Prevena , Dressing to be removed by Nursing staff on ___01/09/17 ( Monday)____ For Dr. Ayers patients , please obtain CBC, BMP, PA & Lat CXR in 2 weeks, results to Dr. Ayers ( prescription will be given) ( ) (Tele: [phone]) , F/U appointment: as per [place] instructions: PCP in 2 weeks, CV surgeon 4 weeks, Animal Care Specialist 3-4 weeks For any questions regarding incisions/ dressing / meds / post op care or above Symptoms, Monday 8am-5pm Heart & Vascular Surgery Office ( Dr. Bonds & Dr. Ayers), After Hours / Nights (5pm -8am) Weekends and Holidays Please call [facility] Charge Nurse I have seen patient [facility] on 01/05/17. My clinical findings support the need for the requested home health care services because: Ltd mobility - disease progression Patient has SOB Deconditioned w/ increased weakness I certify that my clinical findings support that this patient is homebound because: Post-op weakness Lisbeth Smallwood MD Jan 05, 2017 07:19 Fiona Tan Jan 05, 2017 13:49
[2017-01-05] MEDS: RESP: ALBUTEROL 2.5 MG/IPRATROPIUM 0.5 MG NEB (SCH) NEB (08:59)
[2017-01-05] MEDS: TIMOLOL MALEATE 0.5% OPHT SOLN 5 ML BTL EACH EYE SCH ×2 (09:00→20:40)
[2017-01-05] MEDS: SODIUM CHLORIDE 0.9% FLUSH 10 ML FLUSH IV FLUSH SCH ×2 (09:00→20:40)
[2017-01-05] MEDS: APIXABAN 2.5 MG TABLET PO SCH ×2 (09:53→20:39)
[2017-01-05] MEDS: ASPIRIN 81 MG CHEW TAB PO SCH (09:53)
[2017-01-05] MEDS: MUPIROCIN 2% OINT 1 APPLIC/GM SYR NASAL SCH (09:53)
[2017-01-05] MEDS: MAGNESIUM HYDROXIDE SUSP 30 ML CUP PO SCH (09:53)
[2017-01-05] MEDS: DOCUSATE SODIUM 100 MG CAP PO SCH ×2 (09:54→20:37)
[2017-01-05] MEDS: MULTIVITAMINS/MINERALS THERAPEUTIC TAB PO SCH (09:54)
[2017-01-05] MEDS: POLYETHYLENE GLYCOL 17 GM PKG PO SCH (09:54)
[2017-01-05] MEDS: PRAVASTATIN SOD 40 MG TAB PO SCH (09:54)
[2017-01-05] MEDS ORDERED: AMIODARONE 200 MG TAB PO SCH (11:00)
[2017-01-05] MEDS ORDERED: METO50TA PO (13:28)
--- NOTE | 2017-01-05 13:39 | PD.CAR.PN ---
CVT Progress Note Subjective/Hospital Course: 76/ male admitted with chest pain + stress test, EF 53% / also found to have afib , underwent cardiac cath by Dr Messer multi vessel disease PMH: HLP, DM, HTN, arthritis , partial colectomy 2/2 diverticulitis surgery 01/02 : CABG x 3, KUMAR to LAD - good, SVG to PDA - fair , SVG to OM2 - fair, EVH extubated post surgery crystalloid 3000cc/ urine 1000cc 01/03 up in chair chest tube to wall suction NSR, pacer for short time immediately after surgery yesterday BP elevate/ start BB, eval for restarting norvasc and IRVING aggressive pulm toileting/ transfer to stepdown unit 01/04 HR 90-100, BP stable , increase BB chest tubes and A/V wires removed Eder V score 4/ start eliquis tonight ambulate, pulm toileting 01/05 + leukocytosis ( slight improvement ) , renal indices worsening f/u cxr in am , recheck labs in am / dc cvc line pulm toileting, ezpap, acapella and IS OOB ambulate No discharge today per CVS Objective: GENERAL: SKIN: Warm and dry.prevena dressing to chest/ incision intact to leg HEAD: Normocephalic. EYES: No scleral icterus. No injection or drainage. NECK: Supple, trachea midline. No JVD or lymphadenopathy. CARDIOVASCULAR: irregular rate and rhythm without murmurs, gallops, or rubs. RESPIRATORY: Breath sounds diminished in bases, No accessory muscle use. GASTROINTESTINAL: Abdomen soft, non-tender, nondistended. MUSCULOSKELETAL: No cyanosis, or edema. BACK: Nontender without obvious deformity. No CVA tenderness. Vital Signs Date Time Temp Pulse Resp B/P Pulse Ox O2 Delivery O2 Flow Rate FiO2 01/05/17 11:00 98.6 100 20 134/87 91 01/05/17 11:00 101 01/05/17 10:00 102 01/05/17 09:03 91 01/05/17 09:00 102 01/05/17 08:00 Room Air 01/05/17 08:00 84 01/05/17 08:00 98.1 98 20 124/82 92 01/05/17 07:15 87 01/05/17 06:00 82 01/05/17 05:00 102 01/05/17 04:00 98.0 82 20 97 01/05/17 04:00 76 01/05/17 03:24 82 01/05/17 03:24 97 Nasal Cannula 2.00 01/05/17 03:23 98 30 01/05/17 02:00 106 01/05/17 01:00 97 30 01/05/17 01:00 72 01/05/17 00:00 84 01/05/17 00:00 98.2 80 18 122/85 97 01/05/17 00:00 97 Nasal Cannula 2.00 01/04/17 23:00 86 01/04/17 22:00 82 01/04/17 21:29 94 21 01/04/17 21:00 84 01/04/17 20:00 97 Nasal Cannula 2.00 01/04/17 20:00 98.2 95 18 135/95 97 01/04/17 20:00 80 01/04/17 19:00 95 01/04/17 18:54 94 Nasal Cannula 2.00 01/04/17 18:00 86 01/04/17 17:00 94 01/04/17 16:00 98 01/04/17 15:30 92 Nasal Cannula 2.00 01/04/17 15:30 97.7 94 20 119/81 91 01/04/17 15:00 92 01/04/17 14:00 88 01/04/17 13:35 94 Nasal Cannula 2.00 Labs: Laboratory Tests Test 01/05/17 05:00 White Blood Count 15.5 TH/MM3 (4.0-11.0) Red Blood Count 4.75 MIL/MM3 (4.50-5.90) Hemoglobin 13.2 GM/DL (13.0-17.0) Hematocrit 41.0 % (39.0-51.0) Mean Corpuscular Volume 86.4 FL (80.0-100.0) Mean Corpuscular Hemoglobin 27.8 PG (27.0-34.0) Mean Corpuscular Hemoglobin 32.2 % Concent (32.0-36.0) Red Cell Distribution Width 14.7 % (11.6-17.2) Platelet Count 119 TH/MM3 (150-450) Mean Platelet Volume 9.1 FL (7.0-11.0) Result Diagram: 01/05/17 0500 01/04/17 0551 Telemetry: afib (1) Atrial fibrillation Plan: afib / rate 90-100 increase BB EDER v score 4 eliquis (2) Hypertension Plan: controlled on BB / (3) Stage 3 chronic kidney disease Plan: stable. no contrast nephropathy worsening indices / monitor (4) 3-vessel coronary artery disease (5) S/P CABG x 3 Plan: ASA, statin , BB OOB ambulate pulm toileting (6) Obstructive sleep apnea Plan: CPAP at night Fiona Tan Jan 05, 2017 13:39
[2017-01-05] MEDS: METOPROLOL TARTRATE 50 MG TAB PO SCH (18:00)
[2017-01-05] MEDS: SENNOSIDES 8.6 MG TAB PO SCH (20:37)
[2017-01-05] MEDS: traMADol HCL 50 MG TAB PO PRN (20:38)
[2017-01-05] MEDS: MUPIROCIN 2% OINT 1 APPLIC/GM SYR EACH NARE SCH (20:40)
[2017-01-06] VITALS (22 sets, daily range): BP systolic 122–157; BP diastolic 79–101; PULSE 82–114; RESP 18–20; TEMP 98.2–98.8; O2SAT 95–100
[2017-01-06] MEDS: METOPROLOL TARTRATE 50 MG TAB PO SCH (05:01)
[2017-01-06] MEDS: PANTOPRAZOLE SOD 40 MG DELAYED RELEASE TAB PO SCH (05:01)
[2017-01-06] MEDS: METOPROLOL TARTRATE 5 MG/5 ML VIAL IV PUSH PRN (05:01)
[2017-01-06] MEDS: INSULIN ASPART SUPPLEMENTAL SCALE SQ SCH (06:33)
[2017-01-06 06:55] LABS: HEMATOCRIT 39.7 % (39.0-51.0); MEAN CELL VOLUME 84.7 FL (80.0-100.0); MEAN CORPUSCULAR HEMOGLOBIN 28.8 PG (27.0-34.0); PLATELET COUNT 148 TH/MM3 (150-450); RED BLOOD COUNT 4.68 MIL/MM3 (4.50-5.90); RED CELL DISTRIBUTION WIDTH 14.4 % (11.6-17.2); REVIEW FLAG FINAL; WHITE BLOOD COUNT 13.1 TH/MM3 (4.0-11.0)
--- NOTE | 2017-01-06 07:17 | HHI.DS ---
Discharge Summary Admission Date Dec 30, 2016 at 09:32 Discharge Date: Jan 06, 2017 Admitting Diagnosis chest pain, dyspnea on exertion (1) S/P CABG x 3 ICD Code: Z95.1 Diagnosis: Principal (2) 3-vessel coronary artery disease ICD Code: I25.10 Diagnosis: Principal (3) Hypertension ICD Code: I10 Diagnosis: Secondary (4) Unstable angina pectoris ICD Code: I20.0 Diagnosis: Secondary (5) Atrial fibrillation ICD Code: I48.91 Diagnosis: Principal (6) Stage 3 chronic kidney disease ICD Code: N18.3 Diagnosis: Secondary (7) Chest pain ICD Code: R07.9 Diagnosis: Secondary (8) Dyspnea on exertion ICD Code: R06.09 Diagnosis: Secondary (9) Obstructive sleep apnea ICD Code: G47.33 Diagnosis: Secondary Procedures 12/31/[address] Kate Messer 01/02/[address] Ayers: CABG x 3 KUMAR to LAD - good SVG to PDA - fair SVG to OM2 - fair EVH Brief History - From Admission This is a 76-year-old male with a past medical history of hypertension, type 2 diabetes, and hyperlipidemia who presented with chest pain. Patient stated that he was seen prior and clinic and stated that he complained about having severe tremors when he does not eat for days. Patient stated that he wouldn't eat for days and it would have tremors that improved with by mouth intake. Patient stated that when this happens he would have chest pain and chest pain usually resolves with food. Chest pain has been intermittent with these episodes but he stated that today it was longer. Patient stated that it had occurred since yesterday and had not resolved. Patient stated he took some aspirin and medication for his headache which did help the chest pain. He stated nothing made the chest pain worse. Chest pain was nonradiating and he rated it about 3 out of 10 at the moment. He denies any nausea vomiting or diaphoresis with this chest pain. Patient also stated that he presented to the emergency department because he was told by his nurse that he had atrial fibrillation that we discover a week ago and asked why he is here. Patient stated that he has no family history of cardiovascular disease but does admit that almost all family members have diabetes. Patient stated he stopped smoking cigar 15 years ago. CBC/BMP: 01/06/17 0635 01/04/17 0551 Significant Findings Laboratory Tests Test 01/04/17 01/05/17 01/06/17 05:51 05:00 06:35 White Blood Count 17.6 TH/MM3 15.5 TH/MM3 13.1 TH/MM3 (4.0-11.0) (4.0-11.0) (4.0-11.0) Platelet Count 123 TH/MM3 119 TH/MM3 148 TH/MM3 (150-450) (150-450) (150-450) Neutrophils (%) (Auto) 79.5 % (16.0-70.0) Lymphocytes (%) (Auto) 8.2 % (9.0-44.0) Monocytes (%) (Auto) 12.1 % (0.0-8.0) Neutrophils # (Auto) 14.0 TH/MM3 (1.8-7.7) Monocytes # (Auto) 2.1 TH/MM3 (0-0.9) Blood Urea Nitrogen 28 MG/DL (7-18) Creatinine 1.66 MG/DL (0.60-1.30) Estimat Glomerular Filtration 49 ML/MIN (>89) Rate Random Glucose 130 MG/DL (74-106) Magnesium Level 3.4 MG/DL (1.5-2.5) Imaging Last Impressions Chest X-Ray 01/03/17 0500 Signed Impressions: Service Date/Time: Tuesday, January 03, 2017 03:27 - CONCLUSION: 1. Interval extubation and removal of NG tube. Chest tubes remain present. Right central line in right atrium. Mild basilar airspace disease. Jason Villatoro MD Lower Extremity Ultrasound 12/30/16 0000 Signed Impressions: Service Date/Time: Friday, December 30, 2016 15:20 - CONCLUSION: 1. No DVT identified. Size measurements are given above. Pravin Boyer MD Carotid Artery Ultrasound 12/30/16 0000 Signed Impressions: Service Date/Time: Friday, December 30, 2016 14:48 - CONCLUSION: 1. Limited examination. The vertebral arteries could not be identified. This is felt to be secondary to the patient's neck size. 2. Study would suggest at least a moderate grade stenosis in the right internal carotid origin. 3. No hemodynamically significant stenosis seen at the origin of the left internal carotid. Pravin Boyer MD Myocardial Perfusion Scan [facility] 12/29/16 0000 Signed Impressions: Service Date/Time: December 12:35 - CONCLUSION: 1. Differential perfusion defect in the low inferior lateral wall characteristic of an old watershed infarct. 2. Focal areas of about 20%% redistribution in portions of the inferior wall concerning for ischemia. 3. Preserved wall motion with estimated ejection fraction of 53%%. RISK CATEGORY: Low (<1%% Annual Mortality Rate) Miguel Spence MD PE at Discharge GENERAL: This is a well-nourished, well-developed patient, in no apparent distress. SKIN: No rashes, ecchymoses or lesions. Cool and dry. HEAD: Atraumatic. Normocephalic. No temporal or scalp tenderness. EYES: Pupils equal round and reactive. Extraocular motions intact. No scleral icterus. No injection or drainage. ENT: Nose without bleeding, purulent drainage or septal hematoma. Throat without erythema, tonsillar hypertrophy or exudate. Uvula midline. Airway patent. NECK: Trachea midline. No JVD or lymphadenopathy. Supple, nontender, no meningeal signs. CARDIOVASCULAR: Chest tube removed 01/04. Regular rate and rhythm without murmurs , gallops, or rubs. RESPIRATORY: Clear to auscultation. Breath sounds equal bilaterally. No wheezes , rales, or rhonchi. GASTROINTESTINAL: Abdomen soft, non-tender, nondistended. No hepato-splenomegaly , or palpable masses. No guarding. MUSCULOSKELETAL: Extremities without clubbing, cyanosis, or edema. No joint tenderness, effusion, or edema noted. No calf tenderness. Negative Homans sign bilaterally. NEUROLOGICAL: Awake and alert. Cranial nerves II through XII intact. Motor and sensory grossly within normal limits. Five out of 5 muscle strength in all muscle groups. Normal speech. Hospital Course 76-year-old male past medical history of type 2 diabetes, hypertension, hyperlipidemia who presented with Atypical chest pain 2/2 multivessel CAD + stress test, EF 53% s/p cardiac cath 12/[address] Messer multi vessel disease Afib S/P surgery 01/02 : CABG x 3, KUMAR to LAD - good, SVG to PDA - fair , SVG to OM2 - fair, EVH Troponin negative x3. Continue medical management Consult CTS for evaluation, appreciate recommendations. S/P CABG on 01/02/17 Continue BB metoprolol 25 mg po bid, continue statin. Chest tube removed 01/04. Start eliquis per surgery Cardiology Dr Messer, CTS Dr Ventura, appreciate recommendations Monitor VS closely Leukocytosis after surgery likely stress postsurgical related. CXR without infiltrate. no fevers. He is not coughing. Passed walking O2 test no need for O2 at home. CKD -do not have a recent baseline. last Cr and GRF in 2010 and was normal. -unsure if this is acute. Looking at patient's diagnosis most likely chronic. -continue to monitor. -avoid nephrotoxins. Atrial fibrillation, persistent -Patient has been in A. fib for least 1 week. -[id number] score if 4. He would benefit from anticoagulation based on his score. Educated patient extensively on the risks, benefits, and side effects of anticoagulations in decreasing risk of cardioembolic stroke. Patient stated that he understands and he would like to pursue treatment. Options were discussed with patient and he stated that he would like a medication that he would not have to monitor. restart Eliquis when cleared by surgeon. Elevated INR -Patient is not on any medication or does not show any signs of liver failure that would cause an elevated INR. INR was repeated and it was in normal range. most likely a lab mistake. Type 2 diabetes -Educated patient extensively on the consistency of diet. Since patient stated that he wouldn't eat for days and then when he developed tremors he would start eating a lot of food. Most likely during this time he is becoming hypoglycemic. -Will get hemoglobin A1c. Continue home regimen and put patient on insulin sliding scale. Hyperlipidemia/hypertension/os arthritis -Resume home medication. -Will get a lipid panel in the a.m. DVT prophylaxis -eliquis Patient improved, discharged home with home health in stable condition to followup as OP with PCP and consultants. Pt Condition on Discharge: Stable Discharge Disposition: Disch w/ Home Health Serv Discharge Time: > 30 minutes Discharge Instructions DIET: Follow Instructions for: Heart Healthy Diet Activities you can perform: Regular-No Restrictions, See Additionl Instruction Other Activity Instructions: per surgeon recommendations Follow up Referrals: Appointment for Follow Up with [facility] Cardiology with Jude Messer MD PCP Follow-up with Rena Cárdenas MD Surgical with Sharon Ayers MD New Medications: Amlodipine (Norvasc) 10 Mg Tab 10 MG PO DAILY Blood Pressure Management #30 Ref 2 TAB Docusate Sodium (Colace) 100 Mg Cap 100 MG PO BID Constipation #60 Ref 0 CAP Metoprolol Tartrate (Metoprolol Tartrate) 50 Mg Tab 50 MG PO BID Blood Pressure Management #60 Ref 0 TAB Apixaban (Eliquis) 2.5 Mg Tab 2.5 MG PO BID Blood Clot Prevention #60 TAB Continued Medications: Glyburide (Glyburide) 5 Mg Tab 5 MG PO BID Take with meals at the same time each day Blood Sugar Management # 60 Ref 0 TAB Lovastatin (Lovastatin) 40 Mg Tab 40 MG PO DAILY Cholesterol Management #30 Ref 0 TAB Timolol Opth Drops (Timolol Opth Drops) 0.5 % Soln 1 DROP EACH EYE BID Glaucoma #1 Ref 0 BOTTLE Tramadol (Tramadol) 50 Mg Tab 50 MG PO Q6H PRN PAIN Ref 0 TAB Discontinued Medications: Amlodipine (Norvasc) 10 Mg Tab 10 MG PO DAILY Blood Pressure Management #30 Ref 0 TAB Clonidine (Clonidine) 0.2 Mg Tab 0.2 MG PO BID Blood Pressure Management #60 Ref 0 TAB Lisbeth Smallwood MD Jan 06, 2017 07:17
[2017-01-06 07:19] LABS: BICARBONATE 30.9 MEQ/L (21.0-32.0); POTASSIUM 4.4 MEQ/L (3.5-5.1)
[2017-01-06] MEDS: ASPIRIN 81 MG CHEW TAB PO SCH (08:32)
[2017-01-06] MEDS: PRAVASTATIN SOD 40 MG TAB PO SCH (08:32)
[2017-01-06] MEDS: DOCUSATE SODIUM 100 MG CAP PO SCH (08:32)
[2017-01-06] MEDS: APIXABAN 2.5 MG TABLET PO SCH (08:32)
[2017-01-06] MEDS: MUPIROCIN 2% OINT 1 APPLIC/GM SYR EACH NARE SCH (08:32)
[2017-01-06] MEDS: MULTIVITAMINS/MINERALS THERAPEUTIC TAB PO SCH (08:32)
[2017-01-06] MEDS: TIMOLOL MALEATE 0.5% OPHT SOLN 5 ML BTL EACH EYE SCH (08:33)
[2017-01-06] MEDS: SODIUM CHLORIDE 0.9% FLUSH 10 ML FLUSH IV FLUSH SCH (08:33)
--- NOTE | 2017-01-06 11:49 | RADRPT ---
EXAM DATE/TIME: 01/06/2017 10:39 [facility] COMPARISON: CHEST SINGLE AP, January 03, 2017, 3:27. INDICATIONS : Short of breath, evaluate pneumonia MEDICAL HISTORY : Hypertension. Diabetes mellitus type II. SURGICAL HISTORY : CABG. ENCOUNTER: Subsequent ACUITY: 1 week PAIN SCORE: 2/10 LOCATION: Bilateral chest FINDINGS: The cardiac silhouette is normal in transverse diameter. Median sternotomy wires are present. The crista gs are free of acute parenchymal opacity. No effusions are identified. There is multilevel degenerati ve change throughout the spine. CONCLUSION: 1. Cardiomegaly. No acute pulmonary disease. Jairo Benson MD on January 06, 2017 at 11:46 Board Certified Radiologist. This report was verified electronically.
[2017-01-06] MEDS ORDERED: AMLO10 PO (15:11)
--- NOTE | 2017-01-06 15:23 | PD.CAR.PN ---
CVT Progress Note Subjective/Hospital Course: 76/ male admitted with chest pain + stress test, EF 53% / also found to have afib , underwent cardiac cath by Dr Messer multi vessel disease PMH: HLP, DM, HTN, arthritis , partial colectomy 2/2 diverticulitis surgery 01/02 : CABG x 3, KUMAR to LAD - good, SVG to PDA - fair , SVG to OM2 - fair, EVH extubated post surgery crystalloid 3000cc/ urine 1000cc 01/03 up in chair chest tube to wall suction NSR, pacer for short time immediately after surgery yesterday BP elevate/ start BB, eval for restarting norvasc and IRVING aggressive pulm toileting/ transfer to stepdown unit 01/04 HR 90-100, BP stable , increase BB chest tubes and A/V wires removed Eder V score 4/ start eliquis tonight ambulate, pulm toileting 01/05 + leukocytosis ( slight improvement ) , renal indices worsening f/u cxr in am , recheck labs in am / dc cvc line pulm toileting, ezpap, acapella and IS OOB ambulate No discharge today per CVS 01/06 overall improved passed walk test, CXR stable Objective: GENERAL: SKIN: Warm and dry.incision intact and well approximated to chest / incision intact to leg HEAD: Normocephalic. EYES: No scleral icterus. No injection or drainage. NECK: Supple, trachea midline. No JVD or lymphadenopathy. CARDIOVASCULAR: irregular rate and rhythm without murmurs, gallops, or rubs. RESPIRATORY: Breath sounds equal bilaterally. No accessory muscle use. GASTROINTESTINAL: Abdomen soft, non-tender, nondistended. MUSCULOSKELETAL: No cyanosis, or edema. BACK: Nontender without obvious deformity. No CVA tenderness. Vital Signs Date Time Temp Pulse Resp B/P Pulse Ox O2 Delivery O2 Flow Rate FiO2 01/06/17 12:01 88 01/06/17 11:45 98 Room Air 01/06/17 11:45 98.6 88 18 145/87 98 01/06/17 11:00 90 01/06/17 10:00 84 01/06/17 09:00 82 01/06/17 08:45 98 Nasal Cannula 2.00 01/06/17 08:45 98.5 98 18 157/94 98 01/06/17 08:00 90 01/06/17 07:09 95 Nasal Cannula 2.00 01/06/17 07:00 84 01/06/17 06:00 90 01/06/17 05:00 100 01/06/17 04:47 98.2 102 18 150/101 100 01/06/17 04:19 98 30 01/06/17 04:00 98 01/06/17 03:00 107 01/06/17 03:00 100 Bi-Pap 30 01/06/17 02:00 92 01/06/17 01:48 100 30 01/06/17 01:00 88 01/06/17 00:00 86 01/05/17 23:26 94 01/05/17 23:26 96 30 01/05/17 23:00 88 01/05/17 23:00 97.4 98 12 128/92 94 01/05/17 23:00 94 Room Air 01/05/17 22:00 94 01/05/17 21:00 92 01/05/17 20:41 98.5 97 16 141/89 94 01/05/17 20:00 84 01/05/17 19:00 95 Room Air 01/05/17 19:00 80 01/05/17 18:00 86 01/05/17 17:00 102 01/05/17 16:00 99.0 98 20 143/93 93 01/05/17 16:00 108 Labs: Laboratory Tests Test 01/06/17 06:35 White Blood Count 13.1 TH/MM3 (4.0-11.0) Red Blood Count 4.68 MIL/MM3 (4.50-5.90) Hemoglobin 13.5 GM/DL (13.0-17.0) Hematocrit 39.7 % (39.0-51.0) Mean Corpuscular Volume 84.7 FL (80.0-100.0) Mean Corpuscular Hemoglobin 28.8 PG (27.0-34.0) Mean Corpuscular Hemoglobin 34.0 % Concent (32.0-36.0) Red Cell Distribution Width 14.4 % (11.6-17.2) Platelet Count 148 TH/MM3 (150-450) Mean Platelet Volume 8.7 FL (7.0-11.0) Sodium Level 140 MEQ/L (136-145) Potassium Level 4.4 MEQ/L (3.5-5.1) Chloride Level 103 MEQ/L (98-107) Carbon Dioxide Level 30.9 MEQ/L (21.0-32.0) Anion Gap 6 MEQ/L (5-15) Blood Urea Nitrogen 29 MG/DL (7-18) Creatinine 1.29 MG/DL (0.60-1.30) Estimat Glomerular Filtration 65 ML/MIN (>89) Rate Random Glucose 116 MG/DL (74-106) Calcium Level 8.6 MG/DL (8.5-10.1) Result Diagram: 01/06/17 0635 01/06/17 0635 Telemetry: afib (1) Atrial fibrillation Plan: afib / rate 90-100 increase BB EDER v score 4 eliquis (2) Hypertension Plan: controlled on BB / add norvasc (3) Stage 3 chronic kidney disease Plan: stable. no contrast nephropathy worsening indices / monitor (4) 3-vessel coronary artery disease (5) S/P CABG x 3 Plan: ASA, statin , BB OOB ambulate pulm toileting ok to dc home (6) Obstructive sleep apnea Plan: CPAP at night Fiona Tan Jan 06, 2017 15:23
--- NOTE | 2017-01-06 15:23 | HHI.PR ---
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 Says she doesn't have any chest pain or sob. no fever or chills. No cough. Wants to go home. Objective Vitals Vital Signs Date Time Temp Pulse Resp B/P Pulse Ox O2 Delivery O2 Flow Rate FiO2 01/06/17 12:01 88 01/06/17 11:45 98 Room Air 01/06/17 11:45 98.6 88 18 145/87 98 01/06/17 11:00 90 01/06/17 10:00 84 01/06/17 09:00 82 01/06/17 08:45 98 Nasal Cannula 2.00 01/06/17 08:45 98.5 98 18 157/94 98 01/06/17 08:00 90 01/06/17 07:09 95 Nasal Cannula 2.00 01/06/17 07:00 84 01/06/17 06:00 90 01/06/17 05:00 100 01/06/17 04:47 98.2 102 18 150/101 100 01/06/17 04:19 98 30 01/06/17 04:00 98 01/06/17 03:00 107 01/06/17 03:00 100 Bi-Pap 30 01/06/17 02:00 92 01/06/17 01:48 100 30 01/06/17 01:00 88 01/06/17 00:00 86 01/05/17 23:26 94 01/05/17 23:26 96 30 01/05/17 23:00 88 01/05/17 23:00 97.4 98 12 128/92 94 01/05/17 23:00 94 Room Air 01/05/17 22:00 94 01/05/17 21:00 92 01/05/17 20:41 98.5 97 16 141/89 94 01/05/17 20:00 84 01/05/17 19:00 95 Room Air 01/05/17 19:00 80 01/05/17 18:00 86 01/05/17 17:00 102 01/05/17 16:00 99.0 98 20 143/93 93 01/05/17 16:00 108 I/O 01/05/17 01/05/17 01/05/17 01/06/17 01/06/17 01/06/17 07:00 15:00 23:00 07:00 15:00 23:00 Intake Total 480 ml 500 ml 360 ml Output Total 500 ml 350 ml 650 ml Balance -20 ml 150 ml -290 ml Intake Oral 480 ml 500 ml 360 ml Output Urine Total 500 ml 350 ml 650 ml # Bowel Movements 0 4 0 Result Diagram: 01/06/17 0635 01/06/17 0635 Imaging Last Impressions Chest X-Ray 01/06/17 0700 Signed Impressions: Service Date/Time: Friday, January 06, 2017 10:39 - CONCLUSION: 1. Cardiomegaly. No acute pulmonary disease. Jairo Benson MD Lower Extremity Ultrasound 12/30/16 0000 Signed Impressions: Service Date/Time: Friday, December 30, 2016 15:20 - CONCLUSION: 1. No DVT identified. Size measurements are given above. Pravin Boyer MD Carotid Artery Ultrasound 12/30/16 Signed Impressions: Service Date/Time: Friday, December 30, 2016 14:48 - CONCLUSION: 1. Limited examination. The vertebral arteries could not be identified. This is felt to be secondary to the patient's neck size. 2. Study would suggest at least a moderate grade stenosis in the right internal carotid origin. 3. No hemodynamically significant stenosis seen at the origin of the left internal carotid. Pravin Boyer MD Myocardial Perfusion Scan Nuc Med 12/29/16 Signed Impressions: Service Date/Time: December 12:35 - CONCLUSION: 1. Differential perfusion defect in the low inferior lateral wall characteristic of an old watershed infarct. 2. Focal areas of about 20%% redistribution in portions of the inferior wall concerning for ischemia. 3. Preserved wall motion with estimated ejection fraction of 53%%. RISK CATEGORY: Low (<1%% Annual Mortality Rate) Miguel Spence MD Objective Remarks GENERAL: This is a well-nourished, well-developed patient, in no apparent distress. SKIN: No rashes, ecchymoses or lesions. Cool and dry. HEAD: Atraumatic. Normocephalic. No temporal or scalp tenderness. EYES: Pupils equal round and reactive. Extraocular motions intact. No scleral icterus. No injection or drainage. ENT: Nose without bleeding, purulent drainage or septal hematoma. Throat without erythema, tonsillar hypertrophy or exudate. Uvula midline. Airway patent. NECK: Trachea midline. No JVD or lymphadenopathy. Supple, nontender, no meningeal signs. CARDIOVASCULAR: Chest tube removed 01/04. Regular rate and rhythm without murmurs , gallops, or rubs. RESPIRATORY: Clear to auscultation. Breath sounds equal bilaterally. No wheezes , rales, or rhonchi. GASTROINTESTINAL: Abdomen soft, non-tender, nondistended. No hepato-splenomegaly , or palpable masses. No guarding. MUSCULOSKELETAL: Extremities without clubbing, cyanosis, or edema. No joint tenderness, effusion, or edema noted. No calf tenderness. Negative Homans sign bilaterally. NEUROLOGICAL: Awake and alert. Cranial nerves II through XII intact. Motor and sensory grossly within normal limits. Five out of 5 muscle strength in all muscle groups. Normal speech. Procedures 12/31/[address] Kate Messer 01/02/[address] Ayers: CABG x 3 KUMAR to LAD - good SVG to PDA - fair SVG to OM2 - fair EVH A/P Assessment and Plan 76-year-old male past medical history of type 2 diabetes, hypertension, hyperlipidemia who presented with Atypical chest pain 2/2 multivessel CAD + stress test, EF 53% s/p cardiac cath 12/[address] Messer multi vessel disease Afib S/P surgery 01/02 : CABG x 3, KUMAR to LAD - good, SVG to PDA - fair , SVG to OM2 - fair, EVH Troponin negative x3. Continue medical management Consult CTS for evaluation, appreciate recommendations. S/P CABG on 01/02/17 Continue BB metoprolol 25 mg po bid, continue statin. Chest tube removed 01/04. Start eliquis per surgery Cardiology Dr Messer, CTS Dr Ventura, appreciate recommendations Monitor VS closely Leukocytosis after surgery likely stress postsurgical related. CXR without infiltrate. no fevers. He is not coughing. CKD -do not have a recent baseline. last Cr and GRF in 2010 and was normal. -unsure if this is acute. Looking at patient's diagnosis most likely chronic. -continue to monitor. -avoid nephrotoxins. Atrial fibrillation, persistent -Patient has been in A. fib for least 1 week. -[id number] score if 4. He would benefit from anticoagulation based on his score. Educated patient extensively on the risks, benefits, and side effects of anticoagulations in decreasing risk of cardioembolic stroke. Patient stated that he understands and he would like to pursue treatment. Options were discussed with patient and he stated that he would like a medication that he would not have to monitor. restart Eliquis when cleared by surgeon. Elevated INR -Patient is not on any medication or does not show any signs of liver failure that would cause an elevated INR. INR was repeated and it was in normal range. most likely a lab mistake. Type 2 diabetes -Educated patient extensively on the consistency of diet. Since patient stated that he wouldn't eat for days and then when he developed tremors he would start eating a lot of food. Most likely during this time he is becoming hypoglycemic. -Will get hemoglobin A1c. Continue home regimen and put patient on insulin sliding scale. Hyperlipidemia/hypertension/os arthritis -Resume home medication. -Will get a lipid panel in the a.m. DVT prophylaxis -lovenox Code Status full Discussed Condition With Discussed with patient, nurse Lisbeth Smallwood MD Jan 06, 2017 15:23
--- NOTE | 2017-02-06 09:53 | RSPPFT ---
DATE OF PROCEDURE: 12/30/16 COMMENTS: Spirometry shows FEV1 of 1.4 at 72% of predicted, FVC of 1.9 at 72%, FEF 25-75 is 58% of predicted. Post-bronchodilator study were not completed. Flow volume loops suggest a restrictive pattern. IMPRESSION: 1. Mild restrictive disease. 2. Additional mild obstructive disease.
== END 2017-01-06 16:55 | disposition home health service (06) | DRG 233 ==
LOC: NEPE 04:29 → NEDA 09:55 → NEPHCDU 14:33 → HCIS 12-30 08:46 → OBSVTOIN 12-30 09:32 → HCIN 12-30 14:24 → HCVR 01-01 16:01 → HCIN 01-03 11:50
PROVIDERS: ADMIT Hospitalist; ATTEND Hospitalist
PROC: 4A023N7 Measurement of Cardiac Sampling and Pressure, Left Heart, Percutaneous Approach (ICD-10-PCS; 2016-12-30)
PROC: B2111ZZ Fluoroscopy of Multiple Coronary Arteries using Low Osmolar Contrast (ICD-10-PCS; 2016-12-30)
PROC: B41F1ZZ Fluoroscopy of Right Lower Extremity Arteries using Low Osmolar Contrast (ICD-10-PCS; 2016-12-30)
PROC: B4101ZZ Fluoroscopy of Abdominal Aorta using Low Osmolar Contrast (ICD-10-PCS; 2016-12-30)
PROC: 021109W Bypass Coronary Artery, Two Arteries from Aorta with Autologous Venous Tissue, Open Approach (ICD-10-PCS; 2017-01-02)
PROC: 06BQ4ZZ Excision of Left Saphenous Vein, Percutaneous Endoscopic Approach (ICD-10-PCS; 2017-01-02)
PROC: 5A1221Z Performance of Cardiac Output, Continuous (ICD-10-PCS; 2017-01-02)
PROC: 02100Z9 Bypass Coronary Artery, One Artery from Left Internal Mammary, Open Approach (ICD-10-PCS; principal; 2017-01-02 10:00)
DX: I25.110 Atherosclerotic heart disease of native coronary artery with unstable angina pectoris (principal); G93.41 Metabolic encephalopathy; E11.22 Type 2 diabetes mellitus with diabetic chronic kidney disease; E11.649 Type 2 diabetes mellitus with hypoglycemia without coma; I48.1 Persistent atrial fibrillation; E66.9 Obesity, unspecified; I25.84 Coronary atherosclerosis due to calcified coronary lesion; N18.3 Chronic kidney disease, stage 3 (moderate); I12.9 Hypertensive chronic kidney disease with stage 1 through stage 4 chronic kidney disease, or unspecified chronic kidney disease; E78.5 Hyperlipidemia, unspecified; G47.33 Obstructive sleep apnea (adult) (pediatric); I35.1 Nonrheumatic aortic (valve) insufficiency; I77.810 Thoracic aortic ectasia; I77.1 Stricture of artery; D72.829 Elevated white blood cell count, unspecified; M19.90 Unspecified osteoarthritis, unspecified site; F40.240 Claustrophobia; Z22.322 Carrier or suspected carrier of Methicillin resistant Staphylococcus aureus; Z68.36 Body mass index [BMI] 36.0-36.9, adult; Z79.84 Long term (current) use of oral hypoglycemic drugs; Z90.49 Acquired absence of other specified parts of digestive tract; Z95.5 Presence of coronary angioplasty implant and graft; Z96.652 Presence of left artificial knee joint; R29.700 NIHSS score 0; F17.290 Nicotine dependence, other tobacco product, uncomplicated
CPT/HCPCS: 71010; 71020; 76937; 78452; 80048; 80061; 80076; 81001; 82550; 82552; 82948; 83036; 83735; 83880; 84484; 85014; 85025; 85027; 85610; 85730; 86850; 86900; 86901; 86920; 87641; 93005; 93017; 93306; 93318; 93454; 93567; 93880; 93970; 93998; 94002; 94003; 94010; 94150; 94620; 94640; 94664; 94667; 94668; A9502; C1769; C1893; G0378; J0131; J0360; J0690; J1265; J1644; J1650; J1815; J1817; J2150; J2250; J2370; J2440; J2710; J2720; J2785; J2930; J3010; J3370; J3475; J3480; J7030; J7040; J7050; J7120; P9047; Q9967

== ENCOUNTER 2017-01-09 17:19 | Inpatient (IN) | payer OTHER, MEDICARE ==
[~2017-01-09] VITALS: Ht 162.6 cm; Wt 92.0 kg
[~2017-01-09 17:19] MED LIST changes: +APIX2.5T PO; -CLON0.2T PO; +COLA100C3 PO; -GLYB1TAB51 PO; +GLYB5TAB3 PO; -LISI2.5T55 PO; +LOVA40TA PO; +METO50TA PO; -MEVA40TA PO; -PIOG30 PO; -PROT40TA PO; +TIMO0.5S30 EACH EYE; -TRAM50 PO; +TRAM50TA PO; -VITA-13 PO
[2017-01-09 17:40] VITALS: BP 159/85; PULSE 83; RESP 17; TEMP 98.5; O2SAT 96
--- NOTE | 2017-01-09 17:43 | RADRPT ---
EXAM DATE/TIME: 01/09/2017 17:34 [facility] COMPARISON: No previous studies available for comparison. INDICATIONS : Stroke alert. Slurred speech. RADIATION DOSE: 49.96 CTDIvol (mGy) This report was called by Eduardo Boyer to Dr. Pruitt at 17: 39 MEDICAL HISTORY : Diabetes mellitus type 2. Hypertension. SURGICAL HISTORY : None. ENCOUNTER: Initial ACUITY: Acute PAIN SCALE: Not applicable LOCATION: Not applicable TECHNIQUE: Multiple contiguous axial images were obtained of the head. Using automated exposure control and adj ustment of the mA and/or kV according to patient size, radiation dose was kept as low as reasonably a chievable to obtain optimal diagnostic quality images. FINDINGS: CEREBRUM: The ventricles are normal for age. No evidence of midline shift, mass lesion, hemorrhage or acute in farction. No extra-axial fluid collections are seen. POSTERIOR FOSSA: The cerebellum and brainstem are intact. The 4th ventricle is midline. The cerebellopontine angle i s unremarkable. EXTRACRANIAL: The visualized portion of the orbits is intact. SKULL: The calvaria is intact. No evidence of skull fracture. CONCLUSION: 1. No acute intracranial abnormality. Pravin Boyer MD on January 09, 2017 at 17:39 Board Certified Radiologist. This report was verified electronically.
[2017-01-09] MEDS ORDERED: DEXTROSE 50% IN WATER 50 ML SYRINGE ONE (17:50)
[2017-01-09 17:54] LABS: AUTOMATED NEUTROPHIL # 9.5 TH/MM3 (1.8-7.7); BASOPHIL # 0.1 TH/MM3 (0-0.2); BASOPHIL % 0.5 % (0.0-2.0); EOSINOPHIL # 0.4 TH/MM3 (0-0.4); EOSINOPHIL % 3.5 % (0.0-4.0); HEMATOCRIT 38.2 % (39.0-51.0); LYMPH % 10.3 % (9.0-44.0); LYMPHOCYTE # 1.3 TH/MM3 (1.0-4.8); MEAN CELL VOLUME 85.2 FL (80.0-100.0); MEAN CORPUSCULAR HEMOGLOBIN 28.2 PG (27.0-34.0); MEAN CORPUSCULAR HGB CONC 33.1 % (32.0-36.0); MONO % 10.3 % (0.0-8.0); NEUT % 75.4 % (16.0-70.0); PLATELET COUNT 237 TH/MM3 (150-450); RED BLOOD COUNT 4.49 MIL/MM3 (4.50-5.90); RED CELL DISTRIBUTION WIDTH 14.6 % (11.6-17.2); WHITE BLOOD COUNT 12.6 TH/MM3 (4.0-11.0)
[2017-01-09 17:56] LABS: HEMO FLAGS DIFF FINAL
[2017-01-09 18:04] LABS: I-STAT POTASSIUM 5.2 MMOL/L (3.5-4.9)
[2017-01-09 18:07] LABS: INTERNATIONAL NORMALIZED RATIO 1.1 RATIO; PROTHROMBIN TIME - PATIENT 11.8 SEC (9.8-11.6)
--- NOTE | 2017-01-09 18:11 | PD ---
HPI Chief Complaint: Stroke Alert Time Seen by Provider: 17:28 Travel History International Travel<30 days: No Contact w/Intl Traveler<30days: No Traveled to known affect area: No History of Present Illness HPI 76yo M with PMH of CAD s/p CABG, DM2, HLD was brought in as stroke alert. Pt was found to have altered mental status and glucose of 27. Pt given 250cc of D10 and glucose was 175. Pt had some slurred speech so EVAC called stroke alert. Pt arrived and slurred speech resolved. NIH scale 0. Blood glucose 87 here. When pt returned from the CT scan, glucose was 58. 1 amp of D50 given. Pt is on glyburide for DM. Denies any complaints. Pt recently admitted 12/30/16 -01/06/17 and had CABG 01/02/17. PFSH Past Medical History Arthritis: Yes Asthma: No Blood Disorders: No (N) Anxiety: No Depression: No Heart Rhythm Problems: Yes Cancer: No Cardiovascular Problems: Yes High Cholesterol: Yes Chemotherapy: No Congestive Heart Failure: No COPD: No Diabetes: Yes (TRADJENTA/GLIMEPIRIDE) Patient Takes Glucophage: No Diminished Hearing: No Diverticulitis: Yes Endocrine: Yes Genitourinary: Yes (OCCASSIONAL BURNING WHEN VOIDING) Hypertension: Yes Immune Disorder: No Implanted Vascular Access Dvce: No Musculoskeletal: Yes Neurologic: Yes Psychiatric: Yes (CLAUSTROPHOBIA) Reproductive: No Respiratory: Yes Immunizations Current: No Radiation Therapy: No Sleep Apnea: Yes (C PAP) Thyroid Disease: No Tetanus Vaccination: Unknown ?: Not Past Surgical History Abdominal Surgery: Yes (COLON RESECTION R/T DIVERTICULITIS ) Cardiac Surgery: Yes (BYPASS) Joint Replacement: Yes (LEFT KNEE) Other Surgery: Yes Social History Alcohol Use: No Tobacco Use: No Substance Use: No Allergies-Medications (Allergen,Severity, Reaction): Coded Allergies: Codeine (Verified Allergy, Severe, 01/09/17) *MDRO Multi-Drug Resistant Organism (Verified Adverse Reaction, Unknown, ) MRSA PCR Screen POSITIVE 12/31/16 Reported Meds & Prescriptions Reported Meds & Active Scripts Active Norvasc (Amlodipine Besylate) 10 Mg Tab 10 Mg PO DAILY Metoprolol Tartrate 50 Mg Tab 50 Mg PO BID Eliquis (Apixaban) 2.5 Mg Tab 2.5 Mg PO BID Reported Timolol Opth Drops 0.5 % Soln 1 Drop EACH EYE BID Lovastatin 40 Mg Tab 40 Mg PO DAILY Review of Systems Except as stated in HPI: all other systems reviewed are Neg Physical Exam Narrative GENERAL: 76yo M not in distress. SKIN: Focused skin assessment warm/dry. HEAD: Atraumatic. Normocephalic. EYES: Pupils equal and round at 3mm bilaterally. ENT: No nasal bleeding or discharge. Mucous membranes pink and moist. NECK: Trachea midline. No JVD. CARDIOVASCULAR: Regular rate and rhythm. No murmur appreciated. CHEST WALL: +Midline scar in chest. RESPIRATORY: No accessory muscle use. Clear to auscultation. Breath sounds equal bilaterally. GASTROINTESTINAL: Abdomen soft, non-tender, nondistended. MUSCULOSKELETAL: No obvious deformities. No clubbing. No cyanosis. No edema. NEUROLOGICAL: Awake and alert. No obvious cranial nerve deficits. Motor grossly within normal limits. Normal speech. NIH scale 0. Data Data Last Documented VS Vital Signs Date Time Temp Pulse Resp B/P Pulse Ox O2 Delivery O2 Flow Rate FiO2 01/09/17 18:41 80 18 173/87 98 Nasal Cannula 2 01/09/17 17:[address] Brain W/O Iv Contrast(Rout) (01/09/17 ) Electrocardiogram (01/09/17 ) Complete Blood Count With Diff (01/09/17 17:43) Basic Metabolic Panel (Bmp) (01/09/17 17:43) Magnesium (Mg) (01/09/17 17:43) Prothrombin Time / Inr (Pt) (01/09/17 17:43) Act Partial Throm Time (Ptt) (01/09/17 17:43) Dextrose 50% In Umair (Syr) Inj (D50w (Syr (01/09/17 17:50) I-Stat Creatinine (01/09/17 17:43) I-Stat Profile (01/09/17 17:43) Bedside Glucose MELLY.Q1H (01/09/17 19:17) Dextrose 50% In Umair (Vial) Inj (D50w (Vi (01/09/17 19:30) Dext 5%-Nacl 0.9% 1000 Ml Inj (D5w-Ns 10 (01/09/17 19:17) Admit To Inpatient (01/09/17 ) Vital Signs (Adult) Q4H (01/09/17 19:22) Activity Oob With Assistance (01/09/17 19:22) Client Support Administrator / Telemetry .CONTINUOUS (01/09/17 19:22) Intake + Output MELLY.QSHIFT (01/09/17 19:22) Diet 1800 Ada Cons Carb (01/10/17 Breakfast) Diet Heart Healthy (01/10/17 Breakfast) Sodium Chloride 0.9% Flush (Ns Flush) (01/09/17 19:30) Sodium Chloride 0.9% Flush (Ns Flush) (01/09/17 21:00) Pt Request For Service (01/09/17 19:22) Naloxone Inj (Narcan Inj) (01/09/17 19:30) Inpatient Certification (01/09/17 ) Admit Order (Ed Use Only) (01/09/17 19:23) Labs Laboratory Tests Test 01/09/17 17:25 White Blood Count 12.6 TH/MM3 Red Blood Count 4.49 MIL/MM3 Hemoglobin 12.7 GM/DL Bedside Hemoglobin 13.3 G/DL Hematocrit 38.2 % Bedside Hematocrit 39.0 % Mean Corpuscular Volume 85.2 FL Mean Corpuscular Hemoglobin 28.2 PG Mean Corpuscular Hemoglobin 33.1 % Concent Red Cell Distribution Width 14.6 % Platelet Count 237 TH/MM3 Mean Platelet Volume 8.8 FL Neutrophils (%) (Auto) 75.4 % Lymphocytes (%) (Auto) 10.3 % Monocytes (%) (Auto) 10.3 % Eosinophils (%) (Auto) 3.5 % Basophils (%) (Auto) 0.5 % Neutrophils # (Auto) 9.5 TH/MM3 Lymphocytes # (Auto) 1.3 TH/MM3 Monocytes # (Auto) 1.3 TH/MM3 Eosinophils # (Auto) 0.4 TH/MM3 Basophils # (Auto) 0.1 TH/MM3 CBC Comment DIFF FINAL Differential Comment Prothrombin Time 11.8 SEC Prothromb Time International 1.1 RATIO Ratio Activated Partial 24.0 SEC Thromboplast Time Bedside Sodium 138 MMOL/L Sodium Level 139 MEQ/L Bedside Potassium 5.2 MMOL/L Potassium Level 5.1 MEQ/L Bedside Chloride 101 MMOL/L Chloride Level 103 MEQ/L Carbon Dioxide Level 30.6 MEQ/L Anion Gap 5 MEQ/L Bedside Blood Urea Nitrogen 30 MG/DL Blood Urea Nitrogen 23 MG/DL Creatinine 1.44 MG/DL Bedside Creatinine 1.4 MG/DL Estimat Glomerular Filtration 58 ML/MIN Rate Bedside Glucose 92 MG/DL Random Glucose 83 MG/DL Calcium Level 8.7 MG/DL Magnesium Level 2.8 MG/DL MDM Medical Decision Making Medical Screen Exam Complete: Yes Emergency Medical Condition: Yes Interpretation(s) EKG: Afib at 86bpm. LAD. TWI V6. Low voltage. Differential Diagnosis Hypoglycemia vs. CVA vs. ICH Narrative Course 76yo M brought in as stroke alert for alert mental status. Pt is on glyburide and found to be hypoglycemic at home. Pt had slurred speech that resolved by the time he arrived. CT brain negative. I discussed case with Dr. Dasilva and impression is more hypoglycemia. Pt's blood glucose drops quickly and needs to be admitted for blood glucose monitoring. Labs reviewed, mild leukocytosis at 12.6. BUN/creatinine elevated at 23/1.44 which is at baseline. Blood glucose went up to 109 after amp of D50 but went down to 50 again. Pt has order to push amp of D50 when glucose goes below 50 as well as on D5NS at 75cc/hr. Blood glucose Q1 hr ordered. Discussed with Dr. Banegas and accepted to her service. Critical Care Narrative Aggregate critical care time was 60 minutes. Time to perform other separately billable procedures was not included in the critical care time. My time did not include minutes spent treating any other patients simultaneously or on activities that did not directly contribute to the patient's treatment. The services I provided to this patient were to treat and/or prevent clinically significant deterioration that could result in: cardiovascular collapse or . I provided critical care services requiring my management, as noted below: Chart data review, documentation time, medication orders and management, vital sign assessments/reviewing monitor data, ordering and reviewing lab tests, ordering and interpreting/reviewing x-rays and diagnostic studies, care of the patient and discussion of the patient with the admitting physicians. Diagnosis Primary Impression: Hypoglycemia Admitting Information Admitting Physician Requests: Admit Lizet Pruitt DO Jan 09, 2017 18:11 Lizet Pruitt DO Jan 09, 2017 18:11
[2017-01-09 18:26] LABS: BICARBONATE 30.6 MEQ/L (21.0-32.0); MAGNESIUM 2.8 MG/DL (1.5-2.5); POTASSIUM 5.1 MEQ/L (3.5-5.1)
[2017-01-09 18:41] VITALS: BP 173/87; PULSE 80; RESP 18; O2SAT 98
[2017-01-09] MEDS ORDERED: DEXT 5%-NACL 0.9% 1000 ML INJ 1,000 ML IV SCH (19:17)
[2017-01-09] MEDS ORDERED: NALOXONE HCL 0.4 MG/ML AMP IV PRN (19:30)
[2017-01-09] MEDS ORDERED: DEXTROSE 50% IN WATER 50 ML VIAL(D50) IV PUSH ONE (19:30)
[2017-01-09] MEDS: DEXTROSE 50% IN WATER 50 ML VIAL(D50) IV PUSH PRN ×3 (20:36→23:19)
[2017-01-09 20:41] VITALS: BP 146/73; PULSE 93; RESP 17; O2SAT 98
[2017-01-09] MEDS: SODIUM CHLORIDE 0.9% FLUSH 10 ML FLUSH IV FLUSH SCH (21:00)
[2017-01-09] MEDS ORDERED: CHLORHEXIDINE GLUCONATE 2 % 1 PACK (2 CLOTHS)(extra cloths) TOPICAL PRN (21:45)
[2017-01-09 21:46] VITALS: BP 153/91; PULSE 97; RESP 18; TEMP 97.6; O2SAT 99
[2017-01-09 22:00] VITALS: PULSE 95
[2017-01-09] MEDS: SODIUM CHLORIDE 0.9% FLUSH 10 ML FLUSH IV FLUSH PRN ×2 (22:15→23:19)
[2017-01-10] VITALS (9 sets, daily range): BP systolic 117–147; BP diastolic 72–92; PULSE 76–100; RESP 14–25; TEMP 97.9–99.2; O2SAT 94–99
--- NOTE | 2017-01-10 00:23 | HHI.HP ---
H[facility] Primary [facility] Physician Rena Cárdenas MD Admission Diagnosis Hypoglycemia Diagnoses: (1) Hypoglycemia (2) Encephalopathy (3) 3-vessel coronary artery disease (4) Atrial fibrillation Chief Complaint: Syncope r/t hypoglycemia Travel History International Travel<30 Days: No Contact w/Intl Traveler <30 Da: No Traveled to Known Affected Are: No History of Present Illness Mr. Seras is a 76-year-old male with a history of coronary artery disease status post coronary artery bypass graft 3, type 2 diabetes mellitus, and hyperlipidemia who was brought into the emergency room on 01/09/2017 with altered mental status under stroke alert due to slurred speech. He was found to have a glucose of 27 in the field and after 250 cc of D10, it increased to 175 and by the time the patient arrived in the ER, slurred speech had resolved. The patient is seen in the ICU. He states that he came to the ER because his "blood sugar dropped"; states he passed out once on 01/09/17 while he was sitting down to eat dinner; was dizzy and passed out at the table; lives with his daughter who activated EMS. He denies associated diaphoresis, abdominal pain, nausea, vomiting, diarrhea, black or red stool, shortness of breath, palpitations, or chest pain prior to episode. Denies CHF, COPD, liver problems, blood clots, thyroid problems, or cancers. Upon entering the patient's room, we had startled him and he began breathing rapidly and got tachycardic into the 140's; he states he was dreaming when we woke him up and he thought people were shooting at him. His respirations and heart rate returned to normal prior to our departure. . Review of Systems Except as stated in HPI: all other systems reviewed are Neg Past Family Social History Past Medical History Diverticulitis Hypertension CAD s/p CABG d/c from hospital 01/06/17 Atrial fibrillation Chronic kidney disease, stage 3 . Past Surgical History CABG x 3 on 01/02/17 Knee replacement Diverticulitis - had hemicolectomy Reported Medications Reported Meds & Active Scripts Active Norvasc (Amlodipine Besylate) 10 Mg Tab 10 Mg PO DAILY Metoprolol Tartrate 50 Mg Tab 50 Mg PO BID Eliquis (Apixaban) 2.5 Mg Tab 2.5 Mg PO BID Reported Timolol Opth Drops 0.5 % Soln 1 Drop EACH EYE BID Lovastatin 40 Mg Tab 40 Mg PO DAILY Glyburide 5 Mg Tab 5 Mg PO BID Take with meals at the same time each day . Allergies: Coded Allergies: Codeine (Verified Allergy, Severe, 01/09/17) *MDRO Multi-Drug Resistant Organism (Verified Adverse Reaction, Unknown, ) MRSA PCR Screen POSITIVE 12/31/16 Active Ordered Medications Current Medications Dextrose (D50w (Syr) Inj) 50 ml STK-MED ONCE .ROUTE Last administered on 17:55; Start 01/09/17 at 17:50; Stop 01/09/17 at 17:51; Status DC Dextrose 25 ml 25 ml NOW ONCE IV PUSH Last administered on 01/09/17 19:39; Start 01/09/17 at 19:30; Stop 01/09/17 at 19:31; Status DC Dextrose/Sodium Chloride (D5W-NS 1000 ml Inj) 1,000 ml @ 75 mls/hr [id number] IV Last administered on 01/09/17 19:39; Start 01/09/17 at 19:17 Sodium Chloride (NS Flush) 2 ml UNSCH PRN IV FLUSH FLUSH AFTER USING IV ACCESS Last administered on 01/09/17 23:19; Start 01/09/17 at 19:30 Sodium Chloride (NS Flush) 2 ml BID IV FLUSH ; Start 01/09/17 at 21:00 Naloxone HCl (Narcan Inj) 0.4 mg UNSCH PRN IV SEE LABEL COMMENTS; Start at 19:30 Dextrose (D50w (Vial) Inj) 50 ml Q1HR PRN IV PUSH bs>100 Last administered on 23:19; Start 01/09/17 at 19:30 Miscellaneous Information Patient in critical care unit? Ass... [id number] Last administered on 01/09/17 21:45; Start 01/09/17 at 21:45 Chlorhexidine Gluconate (Chlorhexidine 2% Cloth) 3 pack DAILY@04 TOPICAL ; Start 01/10/17 at 04:00; Stop 01/14/17 at 04:01 Chlorhexidine Gluconate (Chlorhexidine 2% Cloth) 3 pack UNSCH PRN TOPICAL HYGIENIC CARE; Start 01/09/17 at 21:45; Stop 01/14/17 at 21:40 Pneumococcal Polyvalent Vaccine (Pneumovax-23 Inj) 25 mcg ONCE ONCE IM ; Start 01/10/17 at 10:00; Stop 01/10/17 at 10:01 Influenza Virus Vaccine (Flu (Quadrivalent) Vaccine Inj) 0.5 ml ONCE ONCE IM ; Start 01/10/17 at 10:00; Stop 01/10/17 at 10:01 . Family History Brother with CVA recently Sister from complications related to diabetes . Social History Tobacco: smokes cigars ETOH: very seldom Illicit Drugs: never . Physical Exam Vital Signs Vital Signs Date Time Temp Pulse Resp B/P Pulse Ox O2 Delivery O2 Flow Rate FiO2 01/09/17 22:00 95 01/09/17 21:46 97.6 97 18 153/91 99 01/09/17 20:41 93 17 146/73 98 Nasal Cannula 2 01/09/17 18:41 80 18 173/87 98 Nasal Cannula 2 01/09/17 17:49 89 17 98 Room Air 01/09/17 17:40 98.5 83 17 159/85 96 Physical Exam GENERAL: This is a sleepy elderly male patient, in no apparent distress who awakens easily for exam and history. SKIN: No rashes, ecchymoses or lesions. Cool and dry. HEAD: Atraumatic. Normocephalic. EYES: No scleral icterus. No injection or drainage. ENT: Nose without bleeding, purulent drainage. NECK: Trachea midline. No JVD or lymphadenopathy. CARDIOVASCULAR: irregularly irregular rhythm without murmurs, gallops, or rubs. Upon entering the patient's room, we had startled him and he began breathing rapidly and got tachycardic into the 140's; he states he was dreaming when we woke him up and he thought people were shooting at him. His respirations and heart rate returned to normal prior to our departure. RESPIRATORY: Clear to auscultation. Breath sounds equal bilaterally. No wheezes , rales, or rhonchi. GASTROINTESTINAL: Abdomen soft, non-tender, nondistended. No guarding. MUSCULOSKELETAL: Extremities without clubbing, cyanosis, or edema. No calf tenderness. NEUROLOGICAL: Awakens easily but sleepy. Motor and sensory grossly within normal limits. Normal speech. . Laboratory Laboratory Tests Test 01/09/17 17:25 White Blood Count 12.6 Red Blood Count 4.49 Hemoglobin 12.7 Bedside Hemoglobin 13.3 Hematocrit 38.2 Bedside Hematocrit 39.0 Mean Corpuscular Volume 85.2 Mean Corpuscular Hemoglobin 28.2 Mean Corpuscular Hemoglobin 33.1 Concent Red Cell Distribution Width 14.6 Platelet Count 237 Mean Platelet Volume 8.8 Neutrophils (%) (Auto) 75.4 Lymphocytes (%) (Auto) 10.3 Monocytes (%) (Auto) 10.3 Eosinophils (%) (Auto) 3.5 Basophils (%) (Auto) 0.5 Neutrophils # (Auto) 9.5 Lymphocytes # (Auto) 1.3 Monocytes # (Auto) 1.3 Eosinophils # (Auto) 0.4 Basophils # (Auto) 0.1 CBC Comment DIFF FINAL Differential Comment Prothrombin Time 11.8 Prothromb Time International 1.1 Ratio Activated Partial 24.0 Thromboplast Time Bedside Sodium 138 Sodium Level 139 Bedside Potassium 5.2 Potassium Level 5.1 Bedside Chloride 101 Chloride Level 103 Carbon Dioxide Level 30.6 Anion Gap 5 Bedside Blood Urea Nitrogen 30 Blood Urea Nitrogen 23 Creatinine 1.44 Bedside Creatinine 1.4 Estimat Glomerular Filtration 58 Rate Bedside Glucose 92 Random Glucose 83 Calcium Level 8.7 Magnesium Level 2.8 Result Diagram: 01/09/17 1725 01/09/17 1725 Imaging Last Impressions Head CT 01/09/17 0000 Signed Impressions: Service Date/Time: Monday, January 09, 2017 17:34 - CONCLUSION: 1. No acute intracranial abnormality. Pravin Boyer MD . Assessment and Plan Problem List: (1) Hypoglycemia ICD Code: E16.2 Status: Acute (2) Encephalopathy ICD Code: G93.40 Status: Acute (3) 3-vessel coronary artery disease ICD Code: I25.10 Status: Acute (4) Atrial fibrillation ICD Code: I48.91 Status: Acute Assessment and Plan Mr. Sears is a 76-year-old male with a history of coronary artery disease status post coronary artery bypass graft 3, type 2 diabetes mellitus, and hyperlipidemia who was brought into the emergency room on 01/09/2017 with altered mental status under stroke alert due to slurred speech. He was found to have a glucose of 27 in the field and after 250 cc of D10, it increased to 175 and by the time the patient arrived in the ER, slurred speech had resolved. Had another episode of hypoglycemia while in CT. Hypoglycemia Metabolic Encephalopathy - Head CT negative for acute intracranial abnormality - check hourly blood glucose - give one amp of D50W qh for BG < 100 - once blood glucose > 100 and then may change Accu checks to q4h - Glyburide should be avoided for patient's with creatinine clearance < 50 - may want to avoid this medication given patient chronic renal insufficiency - Held for now - P.T. to assist with avoidance of further weakness/debility given recent hospitalization for CABG CAD s/p CABG x 3 on 01/02/17 - Monitor intake and output every shift - patient at risk for fluid volume overload - Discontinue maintenance IV fluids - Continuous cardiac telemetry to monitor for cardiac arrhythmia - Monitor vital signs every 4 hours - Resume home cardiac medications Atrial fibrillation - Continuous cardiac telemetry - Continue home metoprolol (with hold parameters) and Eliquis DVT prophylaxis - Restart home Eliquis Written by Daija Gruber, acting as scribe for Dr. Banegas on 01/10/17 at 00:20. .All or portions of this note were transcribed by scribe [Daija Gruber]. I, Dr. Krysten Banegas personally performed the history, physical exam, and medical decision making; and confirmed the accuracy of the information in the transcribed note. Authenticated by Dr. Krysten Banegas on 01/10/17 at 00:20. Discussed Condition With ER physician, RN, and patient . Physician Certification 2 Midnight Certification Type: Admission for Inpatient Services Order for Inpatient Services The services are ordered in accordance with Medicare regulations or non- Medicare payer requirements, as applicable. In the case of services not specified as inpatient-only, they are appropriately provided as inpatient services in accordance with the 2-midnight benchmark. Estimated LOS (days): 3 days is the estimated time the patient will need to remain in the hospital, assuming treatment plan goals are met and no additional complications. Post-Hospital Plan: Home Daija Gruber Jan 10, 2017 00:23 Krysten Banegas MD Jan 10, 2017 07:22
[2017-01-10] MEDS: SODIUM CHLORIDE 0.9% FLUSH 10 ML FLUSH IV FLUSH PRN ×3 (00:55→06:39)
[2017-01-10] MEDS: DEXTROSE 50% IN WATER 50 ML VIAL(D50) IV PUSH PRN ×3 (00:55→06:39)
[2017-01-10] MEDS: CHLORHEXIDINE GLUCONATE 2 % 1 PACK (2 CLOTHS)(taper/protocol) TOPICAL SCH (03:28)
[2017-01-10] MEDS ORDERED: INFLUENZA VIRUS VACCINE (QUADRIVALENT) 0.5 ML SYR IM ONE (10:00)
[2017-01-10] MEDS ORDERED: PNEUMOCOCCAL POLYVALENT INJ 25 MCG/0.5 ML SYR IM ONE (10:00)
--- NOTE | 2017-01-10 11:04 | EKG ---
Date Performed: 01/09/2017 Time Performed: 17:43:35 PTAGE: 76 years EKG: ATRIAL FIBRILLATION LOW QRS VOLTAGE IN EXTREMITY LEADS ABNORMAL QRS-T ANGLE Compared to pre vious tracing, the patient now appears to be in atrial fibrillation. ABNORMAL ECG PREVIOUS TRACING : 01/03/2017 04.59 DOCTOR: Briseida Alfaro Interpretating Date/Time 01/10/2017 11:03:49
[2017-01-10] MEDS: APIXABAN 2.5 MG TABLET PO SCH ×2 (11:55→20:10)
[2017-01-10] MEDS: TIMOLOL MALEATE 0.5% OPHT SOLN 5 ML BTL EACH EYE SCH ×2 (11:55→20:10)
[2017-01-10] MEDS: PRAVASTATIN SOD 40 MG TAB PO SCH (11:55)
[2017-01-10] MEDS: METOPROLOL TARTRATE 50 MG TAB PO SCH ×2 (11:55→20:10)
[2017-01-10] MEDS: SODIUM CHLORIDE 0.9% FLUSH 10 ML FLUSH IV FLUSH SCH (20:10)
[2017-01-11] VITALS: BP 111/77; PULSE 92; RESP 36; TEMP 99.1; O2SAT 93
[2017-01-11 02:00] VITALS: PULSE 93
[2017-01-11 04:00] VITALS: BP 141/82; PULSE 92; RESP 14; TEMP 98.9; O2SAT 94
[2017-01-11] MEDS: CHLORHEXIDINE GLUCONATE 2 % 1 PACK (2 CLOTHS)(taper/protocol) TOPICAL SCH (04:00)
[2017-01-11 06:00] VITALS: PULSE 98
[2017-01-11 08:00] VITALS: BP 137/94; PULSE 105; RESP 23; TEMP 98.7; O2SAT 94
[2017-01-11] MEDS: METOPROLOL TARTRATE 50 MG TAB PO SCH (08:18)
[2017-01-11] MEDS: PRAVASTATIN SOD 40 MG TAB PO SCH (08:18)
[2017-01-11] MEDS: SODIUM CHLORIDE 0.9% FLUSH 10 ML FLUSH IV FLUSH SCH (08:19)
[2017-01-11] MEDS: APIXABAN 2.5 MG TABLET PO SCH (08:19)
[2017-01-11] MEDS: TIMOLOL MALEATE 0.5% OPHT SOLN 5 ML BTL EACH EYE SCH (08:20)
--- NOTE | 2017-01-11 09:18 | HHI.PR ---
Subjective Remarks This is a pleasant 76 y/o Male with CAD status post CABG x 3, has healing wound on Precordial area, has DM II, Hyperlipidemia, Atrial Fibrillation, on Eliquis, has Hypertension was brought in to ER on 01/09/2017 with AMD under stroke alert due to slurred speech. He was found to have a glucose of 27 in the field and after 250 cc of D10, it increased to 175 and by the time the patient arrived in the ER, slurred speech had resolved. transferred to Intensive Care Unit his blood sugar is been controlled but he has no good appetite, denies He denies associated diaphoresis, abdominal pain, nausea, vomiting, diarrhea, black or red stool, shortness of breath, palpitations, or chest pain prior to episode. Denies CHF, COPD, liver problems, blood clots, thyroid problems, or cancers. Seen in his bedroom in the presence of his Mrs. Fannie Sears, he is been taking Glyburide even if he was not eating, at this time he is stable, wants to go home, is been recommended to take Glucerna if he is not able to eat or has low appetite, also do not take his medicine Glyburide until re started by PCP. His CABG was performed on 01/06/17. Objective Vital Signs Date Time Temp Pulse Resp B/P Pulse Ox O2 Delivery O2 Flow Rate FiO2 01/11/17 06:00 98 01/11/17 04:00 98.9 92 14 141/82 94 01/11/17 04:00 92 01/11/17 02:00 93 01/11/17 00:00 92 01/11/17 00:00 99.1 92 36 111/77 93 01/10/17 22:00 81 01/10/17 20:00 97 01/10/17 20:00 99.2 97 25 134/75 94 01/10/17 16:00 98.4 76 24 117/79 96 01/10/17 12:00 98.5 100 24 133/92 97 I/O 01/10/17 01/10/17 01/10/17 01/11/17 01/11/17 01/11/17 07:00 15:00 23:00 07:00 15:00 23:00 Intake Total 680 ml 1200 ml 600 ml Output Total 950 ml 1250 ml 950 ml Balance -270 ml -50 ml -350 ml Intake Oral 480 ml 1200 ml 600 ml IV Total 200 ml 0 ml Output Urine Total 950 ml 1250 ml 950 ml # Bowel Movements 0 0 0 Result Diagram: 01/09/17 1725 01/09/17 1725 Imaging Last Impressions Head CT 01/09/17 0000 Signed Impressions: Service Date/Time: Monday, January 09, 2017 17:34 - CONCLUSION: 1. No acute intracranial abnormality. Pravin Boyer MD Procedures No procedures performed to the patient. Other Results Laboratory Tests Test 01/09/17 01/09/17 17:25 21:36 White Blood Count 12.6 TH/MM3 Red Blood Count 4.49 MIL/MM3 Hemoglobin 12.7 GM/DL Bedside Hemoglobin 13.3 G/DL Hematocrit 38.2 % Bedside Hematocrit 39.0 % Mean Corpuscular Volume 85.2 FL Mean Corpuscular Hemoglobin 28.2 PG Mean Corpuscular Hemoglobin 33.1 % Concent Red Cell Distribution Width 14.6 % Platelet Count 237 TH/MM3 Mean Platelet Volume 8.8 FL Neutrophils (%) (Auto) 75.4 % Lymphocytes (%) (Auto) 10.3 % Monocytes (%) (Auto) 10.3 % Eosinophils (%) (Auto) 3.5 % Basophils (%) (Auto) 0.5 % Neutrophils # (Auto) 9.5 TH/MM3 Lymphocytes # (Auto) 1.3 TH/MM3 Monocytes # (Auto) 1.3 TH/MM3 Eosinophils # (Auto) 0.4 TH/MM3 Basophils # (Auto) 0.1 TH/MM3 CBC Comment DIFF FINAL Differential Comment Prothrombin Time 11.8 SEC Prothromb Time International 1.1 RATIO Ratio Activated Partial 24.0 SEC Thromboplast Time Bedside Sodium 138 MMOL/L Sodium Level 139 MEQ/L Bedside Potassium 5.2 MMOL/L Potassium Level 5.1 MEQ/L Bedside Chloride 101 MMOL/L Chloride Level 103 MEQ/L Carbon Dioxide Level 30.6 MEQ/L Anion Gap 5 MEQ/L Bedside Blood Urea Nitrogen 30 MG/DL Blood Urea Nitrogen 23 MG/DL Creatinine 1.44 MG/DL Bedside Creatinine 1.4 MG/DL Estimat Glomerular Filtration 58 ML/MIN Rate Bedside Glucose 92 MG/DL Random Glucose 83 MG/DL Calcium Level 8.7 MG/DL Magnesium Level 2.8 MG/DL Nasal Screen MRSA (PCR) NEGATIVE Objective Remarks GENERAL: No acute distress. SKIN: No rashes, ecchymoses or lesions. Cool and dry.evaluated his precordial surgical wound no signs of infection. HEAD: Atraumatic. Normocephalic. EYES: No scleral icterus. No injection or drainage. ENT: Nose without bleeding, purulent drainage. NECK: Trachea midline. No JVD or lymphadenopathy. CARDIOVASCULAR: irregularly irregular rhythm without murmurs, gallops, or rubs. RESPIRATORY: Clear to auscultation. Breath sounds equal bilaterally. No wheezes , rales, or rhonchi. GASTROINTESTINAL: Abdomen soft, non-tender, nondistended. No guarding. MUSCULOSKELETAL: Extremities without clubbing, cyanosis, or edema. No calf tenderness. NEUROLOGICAL: Alert and oriented x 3. Medications and IVs Current Medications Medications (Trade) Dose Ordered Sig/Dilan Route Start Time Stop Time Status Last Admin (NS Flush) 2 ml UNSCH PRN IV FLUSH 01/09/17 19:30 01/10/17 06:39 (NS Flush) 2 ml BID IV FLUSH 01/09/17 21:00 01/10/17 20:10 (Narcan Inj) 0.4 mg UNSCH PRN IV 01/09/17 19:30 (D50w (Vial) Inj) 50 ml Q1HR PRN IV PUSH 01/09/17 19:30 01/10/17 06:39 Miscellaneous Information Patient in critical care unit? Ass... [id number] .XX 01/09/17 21:45 01/09/17 21:45 (Chlorhexidine 2% Cloth) 3 pack DAILY@04 TOPICAL 01/10/17 04:00 01/14/17 04:01 01/11/17 04:00 (Chlorhexidine 2% Cloth) 3 pack UNSCH PRN TOPICAL 01/09/17 21:45 01/14/17 21:40 (Norvasc) 10 mg DAILY PO 01/10/17 09:00 01/11/17 08:24 (Eliquis) 2.5 mg BID PO 01/10/17 09:00 01/11/17 08:19 (Pravachol) 40 mg DAILY PO 01/10/17 09:00 01/11/17 08:18 (Lopressor) 50 mg BID PO 01/10/17 09:00 01/11/17 08:18 (Timoptic 0.5% Opth Soln) 1 drop BID EACH EYE 01/10/17 09:00 01/11/17 08:20 A/P Problem List: (1) Hypertension ICD Code: I10 (2) Stage 3 chronic kidney disease ICD Code: N18.3 (3) Atrial fibrillation ICD Code: I48.91 (4) 3-vessel coronary artery disease ICD Code: I25.10 (5) S/P CABG x 3 ICD Code: Z95.1 (6) Acute metabolic encephalopathy due to hypoglycemia ICD Code: G93.41 Assessment and Plan Mr. Sears is a 76-year-old male with a history of coronary artery disease status post coronary artery bypass graft 3, type 2 diabetes mellitus, and hyperlipidemia who was brought into the emergency room on 01/09/2017 with altered mental status under stroke alert due to slurred speech. He was found to have a glucose of 27 in the field and after 250 cc of D10, it increased to 175 and by the time the patient arrived in the ER, slurred speech had resolved. Had another episode of hypoglycemia while in CT. 1. Acute Metabolic encephalopathy secondary to Hypoglycemia Resolved 2. Hypoglycemia secondary to Glyburide and not eating properly, - Head CT negative for acute intracranial abnormality - at this time improved condition discussed with patient and his recommended to hold Glyburide by now if he does not want to eat give him a Boost of Glucerna and follow with PCP tomorrow. CAD s/p CABG x 3 on 01/02/17 - Monitor intake and output every shift - patient at risk for fluid volume overload - Discontinue maintenance IV fluids - Continuous cardiac telemetry to monitor for cardiac arrhythmia - Monitor vital signs every 4 hours - Resume home cardiac medications Atrial fibrillation - Continuous cardiac telemetry - Continue home metoprolol (with hold parameters) and Eliquis Leukocytosis trending down compared with the ones previous to discharge Hypertension controlled. DVT prophylaxis [place] Discussed Condition With Patient and his Mrs. Fannie Sears in the room, all questions answered to the best of my abilities Talked with nurse Mr. Beckwith. Discharge Planning Discharge Home [address] MD Jan 11, 2017 09:18
--- NOTE | 2017-01-11 09:22 | HHI.DS ---
Discharge Summary Admission Date Jan 09, 2017 at 19:24 Discharge Date: Jan 11, 2017 Admitting Diagnosis Hypoglycemia (1) 3-vessel coronary artery disease ICD Code: I25.10 Diagnosis: Secondary (2) Atrial fibrillation ICD Code: I48.91 Diagnosis: Secondary (3) Acute metabolic encephalopathy due to hypoglycemia ICD Code: G93.41 Diagnosis: Principal (4) Stage 3 chronic kidney disease ICD Code: N18.3 Diagnosis: Secondary Procedures No procedures performed. Brief History - From Admission Mr. Sears is a 76-year-old male with a history of coronary artery disease status post coronary artery bypass graft 3, type 2 diabetes mellitus, and hyperlipidemia who was brought into the emergency room on 01/09/2017 with altered mental status under stroke alert due to slurred speech. He was found to have a glucose of 27 in the field and after 250 cc of D10, it increased to 175 and by the time the patient arrived in the ER, slurred speech had resolved. The patient is seen in the ICU. He states that he came to the ER because his "blood sugar dropped"; states he passed out once on 01/09/17 while he was sitting down to eat dinner; was dizzy and passed out at the table; lives with his daughter who activated EMS. He denies associated diaphoresis, abdominal pain, nausea, vomiting, diarrhea, black or red stool, shortness of breath, palpitations, or chest pain prior to episode. Denies CHF, COPD, liver problems, blood clots, thyroid problems, or cancers. Upon entering the patient's room, we had startled him and he began breathing rapidly and got tachycardic into the 140's; he states he was dreaming when we woke him up and he thought people were shooting at him. His respirations and heart rate returned to normal prior to our departure. . CBC/BMP: 01/09/17 1725 01/09/17 1725 Significant Findings Laboratory Tests Test 01/09/17 17:25 White Blood Count 12.6 TH/MM3 (4.0-11.0) Red Blood Count 4.49 MIL/MM3 (4.50-5.90) Hemoglobin 12.7 GM/DL (13.0-17.0) Hematocrit 38.2 % (39.0-51.0) Neutrophils (%) (Auto) 75.4 % (16.0-70.0) Monocytes (%) (Auto) 10.3 % (0.0-8.0) Neutrophils # (Auto) 9.5 TH/MM3 (1.8-7.7) Monocytes # (Auto) 1.3 TH/MM3 (0-0.9) Prothrombin Time 11.8 SEC (9.8-11.6) Activated Partial 24.0 SEC Thromboplast Time (24.3-30.1) Bedside Potassium 5.2 MMOL/L (3.5-4.9) Bedside Blood Urea Nitrogen 30 MG/DL (8-26) Blood Urea Nitrogen 23 MG/DL (7-18) Creatinine 1.44 MG/DL (0.60-1.30) Bedside Creatinine 1.4 MG/DL (0.8-1.3) Estimat Glomerular Filtration 58 ML/MIN (>89) Rate Magnesium Level 2.8 MG/DL (1.5-2.5) Imaging Last Impressions Head CT 01/09/17 0000 Signed Impressions: Service Date/Time: Monday, January 09, 2017 17:34 - CONCLUSION: 1. No acute intracranial abnormality. Pravin Boyer MD PE at Discharge GENERAL: No acute distress. SKIN: No rashes, ecchymoses or lesions. Cool and dry.evaluated his precordial surgical wound no signs of infection. HEAD: Atraumatic. Normocephalic. EYES: No scleral icterus. No injection or drainage. ENT: Nose without bleeding, purulent drainage. NECK: Trachea midline. No JVD or lymphadenopathy. CARDIOVASCULAR: irregularly irregular rhythm without murmurs, gallops, or rubs. RESPIRATORY: Clear to auscultation. Breath sounds equal bilaterally. No wheezes , rales, or rhonchi. GASTROINTESTINAL: Abdomen soft, non-tender, nondistended. No guarding. MUSCULOSKELETAL: Extremities without clubbing, cyanosis, or edema. No calf tenderness. NEUROLOGICAL: Alert and oriented x 3. Hospital Course This is a pleasant 76 y/o Male with CAD status post CABG x 3, has healing wound on Precordial area, has DM II, Hyperlipidemia, Atrial Fibrillation, on Eliquis, has Hypertension was brought in to ER on 01/09/2017 with AMD under stroke alert due to slurred speech. He was found to have a glucose of 27 in the field and after 250 cc of D10, it increased to 175 and by the time the patient arrived in the ER, slurred speech had resolved. transferred to Intensive Care Unit his blood sugar is been controlled but he has no good appetite, denies He denies associated diaphoresis, abdominal pain, nausea, vomiting, diarrhea, black or red stool, shortness of breath, palpitations, or chest pain prior to episode. Denies CHF, COPD, liver problems, blood clots, thyroid problems, or cancers. Seen in his bedroom in the presence of his Mrs. Fannie Sears, he is been taking Glyburide even if he was not eating, at this time he is stable, wants to go home, is been recommended to take Glucerna if he is not able to eat or has low appetite, also do not take his medicine Glyburide until re started by PCP. His CABG was performed on 01/06/17. Assessment and Plan Mr. Sears is a 76-year-old male with a history of coronary artery disease status post coronary artery bypass graft 3, type 2 diabetes mellitus, and hyperlipidemia who was brought into the emergency room on 01/09/2017 with altered mental status under stroke alert due to slurred speech. He was found to have a glucose of 27 in the field and after 250 cc of D10, it increased to 175 and by the time the patient arrived in the ER, slurred speech had resolved. Had another episode of hypoglycemia while in CT. 1. Acute Metabolic encephalopathy secondary to Hypoglycemia Resolved 2. Hypoglycemia secondary to Glyburide and not eating properly, - Head CT negative for acute intracranial abnormality - at this time improved condition discussed with patient and his recommended to hold Glyburide by now if he does not want to eat give him a Boost of Glucerna and follow with PCP tomorrow. CAD s/p CABG x 3 on 01/02/17 - Monitor intake and output every shift - patient at risk for fluid volume overload - Discontinue maintenance IV fluids - Continuous cardiac telemetry to monitor for cardiac arrhythmia - Monitor vital signs every 4 hours - Resume home cardiac medications Atrial fibrillation - Continuous cardiac telemetry - Continue home metoprolol (with hold parameters) and Eliquis Leukocytosis trending down compared with the ones previous to discharge Hypertension controlled. DVT prophylaxis Yolanda Discussed Condition With Patient and his Mrs. Fannie Sears in the room, all questions answered to the best of my abilities Talked with nurse Mr. Beckwith. Discharge Planning Discharge Home Pt Condition on Discharge: Good Discharge Disposition: Discharge Home Discharge Time: <= 30 minutes Discharge Instructions DIET: Follow Instructions for: Heart Healthy Diet, Diabetic Diet Activities you can perform: Regular-No Restrictions [address] MD Jan 11, 2017 09:22
== END 2017-01-11 10:25 | disposition home or self-care (01) | DRG 71 ==
LOC: NEPE 17:19 → NEDA 19:24 → HIMN 21:10
PROVIDERS: ADMIT Internal Medicine; ATTEND Internal Medicine
DX: G93.41 Metabolic encephalopathy (principal); I25.810 Atherosclerosis of coronary artery bypass graft(s) without angina pectoris; E11.22 Type 2 diabetes mellitus with diabetic chronic kidney disease; E11.649 Type 2 diabetes mellitus with hypoglycemia without coma; I12.9 Hypertensive chronic kidney disease with stage 1 through stage 4 chronic kidney disease, or unspecified chronic kidney disease; N18.3 Chronic kidney disease, stage 3 (moderate); E78.5 Hyperlipidemia, unspecified; F40.240 Claustrophobia; G47.30 Sleep apnea, unspecified; Z95.1 Presence of aortocoronary bypass graft; I48.91 Unspecified atrial fibrillation; R29.700 NIHSS score 0; F17.290 Nicotine dependence, other tobacco product, uncomplicated; Z90.49 Acquired absence of other specified parts of digestive tract; Z96.659 Presence of unspecified artificial knee joint
CPT/HCPCS: 70450; 80048; 82435; 82565; 82947; 82948; 83735; 84132; 84295; 84520; 85025; 85610; 85730; 87641; 93005; 96374; J7042

== ENCOUNTER 2017-07-23 09:03 | Emergency (ER) | payer OTHER ==
[~2017-07-23 09:03] MED LIST changes: -COLA100C3 PO; -GLYB5TAB3 PO; -TRAM50TA PO
[2017-07-23 09:04] VITALS: BP 139/83; PULSE 93; RESP 14; TEMP 98.6; O2SAT 98
--- NOTE | 2017-07-23 10:08 | RADRPT ---
EXAM DATE/TIME: 07/23/2017 09:44 [facility] COMPARISON: CHEST SINGLE AP, January 03, 2017, 3:27. INDICATIONS : Cough. MEDICAL HISTORY : None. SURGICAL HISTORY : CABG. ENCOUNTER: Initial ACUITY: 1 day PAIN SCORE: 0/10 LOCATION: Bilateral chest FINDINGS: A single view of the chest demonstrates the lungs to be symmetrically aerated without evidence of mas s, infiltrate or effusion. The heart size is enlarged but stable. There is evidence of previous card iothoracic surgery. No significant changes. The bony structures are stable.. CONCLUSION: No acute disease. No significant change has occurred. Ricardo Rees MD on July 23, 2017 at 10:06 Board Certified Radiologist. This report was verified electronically.
--- NOTE | 2017-07-23 10:24 | PD ---
HPI Chief Complaint: Cold / Flu Symptoms Time Seen by Provider: 09:45 Travel History International Travel<30 days: No Contact w/Intl Traveler<30days: No Traveled to known affect area: No History of Present Illness HPI This patient complains of cough. Duration one day. Severity is mild. He denies fever or shortness of breath. PFSH Past Medical History Arthritis: Yes Asthma: No Atrial Fibrillation: Yes (PT'S FAMILY AT BEDSIDE STATED THAT THEY THOUGHT THAT THE PT MAY HAVE AFIB) Blood Disorders: No (N) Anxiety: No Depression: No Heart Rhythm Problems: Yes Cancer: No Cardiovascular Problems: Yes High Cholesterol: Yes Chemotherapy: No Congestive Heart Failure: No COPD: No Diabetes: Yes (TRADJENTA/GLIMEPIRIDE) Diminished Hearing: No Diverticulitis: Yes Endocrine: Yes Genitourinary: Yes (OCCASSIONAL BURNING WHEN VOIDING) Hypertension: Yes Immune Disorder: No Implanted Vascular Access Dvce: No Musculoskeletal: Yes Neurologic: Yes Psychiatric: Yes (CLAUSTROPHOBIA) Reproductive: No Respiratory: Yes Immunizations Current: No Radiation Therapy: No Sleep Apnea: Yes (C PAP) Thyroid Disease: No Past Surgical History Abdominal Surgery: Yes (COLON RESECTION R/T DIVERTICULITIS ) Cardiac Surgery: Yes (BYPASS) Joint Replacement: Yes (LEFT KNEE) Other Surgery: Yes Social History Alcohol Use: No Tobacco Use: No Substance Use: No Allergies-Medications (Allergen,Severity, Reaction): Coded Allergies: codeine (Unverified Allergy, Severe, 05/23/17) *MDRO Multi-Drug Resistant Organism (Verified Adverse Reaction, Unknown, ) 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 Breath sounds are clear and symmetric. GASTROINTESTINAL: Abdomen soft, non-tender, nondistended. Positive bowel sounds. No hepato-splenomegaly, or palpable masses. No guarding. SKIN: Focused skin assessment reveals no rash or ulcers. Skin is warm and dry. Palpation shows no induration or nodules. Data Data Last Documented VS Vital Signs Date Time Temp Pulse Resp B/P (MAP) Pulse Ox O2 Delivery O2 Flow Rate FiO2 07/23/17 09:04 98.6 93 14 139/83 (101) 98 Orders Orders Chest, Single Ap (07/23/17 ) MDM Medical Decision Making Medical Screen Exam Complete: Yes Emergency Medical Condition: Yes Medical Record Reviewed: Yes Differential Diagnosis Bronchitis, pneumonia, asthma Narrative Course I have reviewed the patient's electronic medical record. I reviewed his chest x-ray which is normal Patient seems to have a viral bronchitis most likely Supportive care discussed and no indication for antibiotics Diagnosis Primary Impression: Acute viral bronchitis Additional Instructions: The patient was advised to follow up with their physician and return if they worsen. Med/Other Pt SpecificInfo: Other Disposition: 01 DISCHARGE HOME Condition: Stable Kevin Jaimes MD Jul 23, 2017 10:24
== END 2017-07-23 10:36 | disposition home or self-care (01) ==
LOC: NEPD 09:03
DX: J20.9 Acute bronchitis, unspecified (principal); B97.89 Other viral agents as the cause of diseases classified elsewhere; E11.9 Type 2 diabetes mellitus without complications; I10 Essential (primary) hypertension; E78.00 Pure hypercholesterolemia, unspecified; G47.30 Sleep apnea, unspecified; Z79.84 Long term (current) use of oral hypoglycemic drugs; Z87.39 Personal history of other diseases of the musculoskeletal system and connective tissue; Z86.79 Personal history of other diseases of the circulatory system; Z87.19 Personal history of other diseases of the digestive system; Z87.448 Personal history of other diseases of urinary system; Z86.69 Personal history of other diseases of the nervous system and sense organs
CPT/HCPCS: 71010; 99283

== ENCOUNTER → 2017-08-29 | Outpatient (CLI) | payer OTHER ==
--- NOTE | 2017-09-04 11:04 | RSPPFT ---
DATE OF PROCEDURE: 08/29/17 COMMENTS: Spirometry shows FVC of 1.6 at 53% of predicted, FEV1 of 1.1 at 51%, FEV1/FVC ratio is decreased. There is a good response after bronchodilator treatment.The FEF 25, FEF 50, FEF 75 and FEF 25-57 are all decreased. Lung volumes show residual volume is increased. TLC is normal. Diffusion capacity is decreased. Flow volume loop indicates an obstructive pattern. IMPRESSION: 1. Mild obstructive lung disease. 2. Good response after bronchodilator treatment. 3. Lung volumes are increased. 4. Diffusion capacity is decreased.
== END ==
LOC: HRSP 11:50
PROVIDERS: ATTEND Internal Medicine
DX: J44.9 Chronic obstructive pulmonary disease, unspecified (principal)
CPT/HCPCS: 94060; 94726; 94729

== ENCOUNTER 2017-08-31 20:47 | Inpatient (IN) | payer OTHER, MEDICARE ==
[~2017-08-31] VITALS: Ht 167.6 cm; Wt 99.7 kg
[2017-08-31 20:51] VITALS: BP 143/71; PULSE 85; RESP 18; TEMP 98.5; O2SAT 96
[2017-08-31] MEDS ORDERED: RESP: ALBUTEROL 2.5 MG/IPRATROPIUM 0.5 MG NEB (SCH) INH ONE (21:30)
[2017-08-31] MEDS ORDERED: methylPREDNISolone SOD SUCC 125 MG/2 ML VIAL IV PUSH ONE (21:30)
[2017-08-31] MEDS ORDERED: SODIUM CHLORIDE 0.9% FLUSH 10 ML FLUSH IVF PRN (21:30)
[2017-08-31 21:32] VITALS: O2SAT 96
--- NOTE | 2017-08-31 21:35 | PD ---
HPI Chief Complaint: Respiratory Symptoms Time Seen by Provider: 21:11 Travel History International Travel<30 days: No Contact w/Intl Traveler<30days: No Traveled to known affect area: No History of Present Illness HPI 77-year-old male presents to the emergency department for evaluation of increasing shortness of breath over the past 3 weeks. Patient was seen here 3 weeks ago was diagnosed with viral bronchitis. He states that his symptoms have not improved. He followed up with his wood polisher, Dr. Gillespie, who placed him on an albuterol inhaler and performed pulmonary function tests. He does not know the results of the tests. Patient denies any fevers or chills. He denies any chest pain. He denies any abdominal pain, nausea, vomiting, diarrhea. He does complain of some bilateral lower extremity edema. He states he has had this in the past and was placed on 3 days of Lasix. However, he is not currently on the furosemide. Patient denies any other complaints at this time. Severity is moderate. No exacerbating or alleviating factors. PFSH Past Medical History Arthritis: Yes Asthma: No Atrial Fibrillation: Yes Anxiety: No Depression: No Heart Rhythm Problems: Yes Cancer: No Cardiovascular Problems: Yes High Cholesterol: Yes Chemotherapy: No Congestive Heart Failure: No COPD: No Diabetes: Yes (TRADJENTA/GLIMEPIRIDE) Patient Takes Glucophage: No Diminished Hearing: No Diverticulitis: Yes Endocrine: Yes Genitourinary: Yes Hypertension: Yes Immune Disorder: No Implanted Vascular Access Dvce: No Musculoskeletal: Yes Neurologic: Yes Psychiatric: Yes (CLAUSTROPHOBIA) Reproductive: No Respiratory: Yes Immunizations Current: No Radiation Therapy: No Sleep Apnea: Yes (C PAP) Thyroid Disease: No Past Surgical History Abdominal Surgery: Yes (COLON RESECTION R/T DIVERTICULITIS ) Cardiac Surgery: Yes (TRIPLE BYPASS) Joint Replacement: Yes (LEFT KNEE) Other Surgery: Yes Social History Alcohol Use: No Tobacco Use: No Substance Use: No Allergies-Medications (Allergen,Severity, Reaction): Coded Allergies: codeine (Unverified Allergy, Severe, 08/31/17) *MDRO Multi-Drug Resistant Organism (Verified Adverse Reaction, Unknown, 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 Reported Meds & Prescriptions Reported Meds & Active Scripts Active Norvasc (Amlodipine Besylate) 10 Mg Tab 10 Mg PO DAILY Metoprolol Tartrate 50 Mg Tab 50 Mg PO BID Eliquis (Apixaban) 2.5 Mg Tab 2.5 Mg PO BID Reported Timolol Opth Drops 0.5 % Soln 1 Drop EACH EYE BID Lovastatin 40 Mg Tab 40 Mg PO DAILY Review of Systems Except as stated in HPI: all other systems reviewed are Neg Physical Exam Narrative GENERAL: Well-nourished, well-developed male patient, afebrile. SKIN: Focused skin assessment warm/dry. HEAD: Normocephalic. Atraumatic. EYES: No scleral icterus. No injection or drainage. NECK: Supple, trachea midline. No JVD or lymphadenopathy. CARDIOVASCULAR: Regular rate and rhythm without murmurs, gallops, or rubs. RESPIRATORY: Breath sounds equal bilaterally. No accessory muscle use. Lungs sounds are clear to auscultation. GASTROINTESTINAL: Abdomen soft, non-tender, nondistended. MUSCULOSKELETAL: No cyanosis. 1+ bilateral lower extremity edema. BACK: Nontender without obvious deformity. No CVA tenderness. Data Data Last Documented VS Vital Signs Date Time Temp Pulse Resp B/P (MAP) Pulse Ox O2 Delivery O2 Flow Rate FiO2 08/31/17 21:43 87 18 129/67 (87) 96 08/31/17 21:32 21 08/31/17 20:51 98.5 Room Air Orders Orders Complete Blood Count With Diff (08/31/17 21:21) Basic Metabolic Panel (Bmp) (08/31/17 21:21) B-Type Natriuretic Peptide (08/31/17 21:21) Act Partial Throm Time (Ptt) (08/31/17 21:21) Prothrombin Time / Inr (Pt) (08/31/17 21:21) Magnesium (Mg) (08/31/17 21:21) Ckmb (Isoenzyme) Profile (08/31/17 21:21) Troponin I (08/31/17 21:21) Iv Access Insert/Monitor (08/31/17 21:21) Electrocardiogram (08/31/17 21:21) Ecg Monitoring (08/31/17 21:21) Oximetry (08/31/17 21:21) Oxygen Administration (08/31/17 21:21) Chest, Single Ap (08/31/17 21:21) Sodium Chloride 0.9% Flush (Ns Flush) (08/31/17 21:30) Methylprednisolone So Succ Inj (Solumedr (08/31/17 21:30) Albuterol-Ipratropium Neb (Duoneb Neb) (08/31/17 21:30) Type And Screen (08/31/17 22:08) Red Blood Cells (Rbc) (08/31/17 22:08) Blood Product Administration (08/31/17 22:08) Sodium Chlor 0.9% 250 Ml Inj (Ns 250 Ml (08/31/17 22:15) Pantoprazole Inj (Protonix Inj) (08/31/17 22:15) CKMB (08/31/17 21:30) CKMB% (08/31/17 21:30) Admit Order (Ed Use Only) (08/31/17 22:58) Labs Laboratory Tests Test 08/31/17 21:30 White Blood Count 7.0 TH/MM3 Red Blood Count 3.31 MIL/MM3 Hemoglobin 6.6 GM/DL Hematocrit 21.6 % Mean Corpuscular Volume 65.2 FL Mean Corpuscular Hemoglobin 20.0 PG Mean Corpuscular Hemoglobin Concent 30.7 % Red Cell Distribution Width 21.1 % Platelet Count 260 TH/MM3 Mean Platelet Volume 8.3 FL Neutrophils (%) (Auto) 55.1 % Lymphocytes (%) (Auto) 22.9 % Monocytes (%) (Auto) 15.3 % Eosinophils (%) (Auto) 5.5 % Basophils (%) (Auto) 1.2 % Neutrophils # (Auto) 3.9 TH/MM3 Lymphocytes # (Auto) 1.6 TH/MM3 Monocytes # (Auto) 1.1 TH/MM3 Eosinophils # (Auto) 0.4 TH/MM3 Basophils # (Auto) 0.1 TH/MM3 CBC Comment AUTO DIFF Differential Comment AUTO DIFF CONFIRMED Platelet Estimate NORMAL Platelet Morphology Comment NORMAL Prothrombin Time 13.4 SEC Prothromb Time International Ratio 1.2 RATIO Activated Partial Thromboplast Time 29.4 SEC Blood Urea Nitrogen 29 MG/DL Creatinine 2.16 MG/DL Random Glucose 186 MG/DL Calcium Level 8.5 MG/DL Magnesium Level 2.4 MG/DL Sodium Level 140 MEQ/L Potassium Level 4.4 MEQ/L Chloride Level 107 MEQ/L Carbon Dioxide Level 28.5 MEQ/L Anion Gap 5 MEQ/L Estimat Glomerular Filtration Rate 36 ML/MIN Total Creatine Kinase 151 U/L Creatine Kinase MB 2.2 NG/ML Troponin I 0.02 NG/ML B-Type Natriuretic Peptide 465 PG/ML MDM Medical Decision Making Medical Screen Exam Complete: Yes Emergency Medical Condition: Yes Medical Record Reviewed: Yes Interpretation(s) chest x-ray - CONCLUSION: 1. Postoperative median sternotomy. Subsegmental atelectasis at the lung bases. Cardiomegaly. Differential Diagnosis Bronchitis versus COPD versus CHF versus pneumonia Narrative Course 77-year-old male presents to the emergency department for evaluation of cough and shortness of breath has been ongoing for 3 weeks. He was recently diagnosed with viral bronchitis. IV access established. CBC, BMP, BNP, CK, troponin, magnesium, PTT, PT/INR ordered and pending. Chest x-ray is ordered and pending. Patient is given DuoNeb 1 and Solu-Medrol 125 mg IV. CBC shows anemia with a hemoglobin of 6.6, hematocrit 21.6. BMP shows only be a creatinine at 29/2.16. CK is 151. Troponin is 0.02. Magnesium is 2.4. BNP [-]. PT is 13.4, INR 1.2, PTT 29.4. Chest x-ray shows Postoperative median sternotomy. Subsegmental atelectasis at the lung bases. Cardiomegaly. Upon review of records, the patient is on Eliquis. Rectal exam was completed with CHARLES Ji at bedside. No masses or tenderness, stool is dark. Hemoccult is positive. Patient is given Protonix 40 mg IV. 2 units packed red blood cells are ordered. [facility] is paged for admission. Dr. Mustafa accepted admission. Diagnosis Primary Impression: GI bleed Qualified Codes: K92.2 - Gastrointestinal hemorrhage, unspecified Additional Impression: Symptomatic anemia Admitting Information Admitting Physician Requests: Admit Jocelyn Roy Aug 31, 2017 21:35
[2017-08-31 21:43] VITALS: BP 129/67; PULSE 87; RESP 18; O2SAT 96
[2017-08-31 21:53] LABS: AUTOMATED NEUTROPHIL # 3.9 TH/MM3 (1.8-7.7); BASOPHIL # 0.1 TH/MM3 (0-0.2); BASOPHIL % 1.2 % (0.0-2.0); EOSINOPHIL # 0.4 TH/MM3 (0-0.4); EOSINOPHIL % 5.5 % (0.0-4.0); HEMATOCRIT 21.6 % (39.0-51.0); LYMPH % 22.9 % (9.0-44.0); LYMPHOCYTE # 1.6 TH/MM3 (1.0-4.8); MEAN CELL VOLUME 65.2 FL (80.0-100.0); MEAN CORPUSCULAR HGB CONC 30.7 % (32.0-36.0); MONO % 15.3 % (0.0-8.0); NEUT % 55.1 % (16.0-70.0); PLATELET COUNT 260 TH/MM3 (150-450); RED BLOOD COUNT 3.31 MIL/MM3 (4.50-5.90); RED CELL DISTRIBUTION WIDTH 21.1 % (11.6-17.2)
[2017-08-31 21:55] LABS: HEMO FLAGS AUTO DIFF
--- NOTE | 2017-08-31 22:04 | RADRPT ---
EXAM DATE/TIME: 08/31/2017 21:37 [facility] COMPARISON: CHEST SINGLE AP, July 23, 2017, 9:44. INDICATIONS : Short of breath. MEDICAL HISTORY : None. SURGICAL HISTORY : CABG. ENCOUNTER: Initial ACUITY: 2 weeks PAIN SCORE: 0/10 LOCATION: Bilateral chest FINDINGS: A single view of the chest demonstrates the lungs to be symmetrically aerated without evidence of mas s, infiltrate or effusion. Linear atelectasis left lung base. The cardiomediastinal contours are unre markable. Osseous structures are intact. CONCLUSION: 1. Postoperative median sternotomy. Subsegmental atelectasis at the lung bases. Cardiomegaly. Jason Villatoro MD on August 31, 2017 at 22:02 Board Certified Radiologist. This report was verified electronically.
[2017-08-31 22:08] LABS: APTT (PATIENT) 29.4 SEC (24.3-30.1); INTERNATIONAL NORMALIZED RATIO 1.2 RATIO; PROTHROMBIN TIME - PATIENT 13.4 SEC (9.8-11.6)
[2017-08-31 22:10] LABS: ANION GAP 5 MEQ/L (5-15); BICARBONATE 28.5 MEQ/L (21.0-32.0); BLOOD UREA NITROGEN 29 MG/DL (7-18); CHLORIDE 107 MEQ/L (98-107); GLOMERULAR FILTRATION RATE 36 ML/MIN (>89); MAGNESIUM 2.4 MG/DL (1.5-2.5); POTASSIUM 4.4 MEQ/L (3.5-5.1); SODIUM (NA) 140 MEQ/L (136-145)
[2017-08-31 22:14] LABS: CREATINE KINASE 151 U/L (39-308)
[2017-08-31] MEDS ORDERED: SODIUM CHLOR 0.9% 250 ML INJ 250 ML IV ONE (22:15)
[2017-08-31] MEDS ORDERED: PANTOPRAZOLE SODIUM 40 MG VIAL IV PUSH ONE (22:15)
[2017-08-31 22:26] LABS: PLATELET ESTIMATE SMEAR NORMAL (NORMAL); PLATELET MORPHOLOGY NORMAL (NORMAL); SCAN/DIFF AUTO DIFF CONFIRMED
[2017-08-31 22:27] LABS: CKMB 2.2 NG/ML (0.5-3.6)
[2017-08-31 23:48] VITALS: BP 134/85; PULSE 92; RESP 18; O2SAT 97
[2017-09-01] VITALS (12 sets, daily range): BP systolic 116–158; BP diastolic 70–90; PULSE 82–117; RESP 18–24; TEMP 97.3–99.3; O2SAT 91–99
[2017-09-01] MEDS: SODIUM CHLOR 0.9% 1000 ML INJ 1,000 ML IV SCH ×3 (00:04→20:18)
[2017-09-01] MEDS ORDERED: SODIUM CHLORIDE 0.9% FLUSH 10 ML FLUSH IV FLUSH PRN (00:15)
[2017-09-01] MEDS ORDERED: ONDANSETRON HCL 4 MG/2 ML VIAL IV PUSH PRN (00:15)
--- NOTE | 2017-09-01 00:17 | HHI.HP ---
[facility] Rena Cárdenas MD Admission Diagnosis GI bleed, symptomatic anemia Diagnoses: Travel History International Travel<30 Days: No Contact w/Intl Traveler <30 Da: No Traveled to Known Affected Are: No History of Present Illness 77-year-old male with past medical history significant for coronary artery disease, status post CABG 3, hypertension, hyperlipidemia and type 2 diabetes mellitus presents with a three-week history of increasing shortness of breath. The patient was seen in the emergency department 3 weeks ago and diagnosed with viral bronchitis. He states his symptoms have been worsening since that time. He followed with his bulb grader, Dr. Gillespie, who placed him on albuterol and performed PFTs. Denies fever/chills. On evaluation in the emergency department , patient's chest x-ray showed subsegmental atelectasis at the lung bases and cardiomegaly. Patient's lab work was significant for an H/H of 6.6/21.6. Creatinine 2.16 (baseline 1.4). Patient Hemoccult positive in the ED. Review of Systems Denies fever or chills Denies blurry vision, otorrhea, rhinorrhea Denies sore throat and cough No chest pain, palpitations, positive shortness of breath No abdominal pain Denies constipation/diarrhea/nausea/vomiting Denies muscle pain/weakness No rashes Past Family Social History Past Medical History Hyperlipidemia Hypertension Diabetes mellitus (on insulin) Coronary artery disease Diverticulitis Past Surgical History CABG 3 on 01/02/17 Knee replacement Hemicolectomy for diverticulitis Reported Medications Reported Meds & Active Scripts Active Norvasc (Amlodipine Besylate) 10 Mg Tab 10 Mg PO DAILY Metoprolol Tartrate 50 Mg Tab 50 Mg PO BID Eliquis (Apixaban) 2.5 Mg Tab 2.5 Mg PO BID Reported Timolol Opth Drops 0.5 % Soln 1 Drop EACH EYE BID Lovastatin 40 Mg Tab 40 Mg PO DAILY Allergies: Coded Allergies: codeine (Unverified Allergy, Severe, 08/31/17) *MDRO Multi-Drug Resistant Organism (Verified Adverse Reaction, Unknown, 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 Family History Multiple siblings with diabetes mellitus Social History Quit smoking 15 years ago. Denies alcohol. Physical Exam Vital Signs Vital Signs Date Time Temp Pulse Resp B/P (MAP) Pulse Ox O2 Delivery O2 Flow Rate FiO2 08/31/17 23:48 92 18 134/85 (101) 97 08/31/17 21:43 87 18 129/67 (87) 96 08/31/17 21:32 96 21 08/31/17 21:16 20 96 08/31/17 20:51 98.5 85 18 143/71 (95) 96 Room Air Physical Exam GENERAL: Angela male lying in bed SKIN: No rashes, ecchymoses or lesions. Cool and dry. HEAD: Atraumatic. Normocephalic. No temporal or scalp tenderness. EYES: Pupils equal round and reactive. Extraocular motions intact. No scleral icterus. No injection or drainage. ENT: Nose without bleeding, purulent drainage or septal hematoma. Throat without erythema, tonsillar hypertrophy or exudate. Uvula midline. Airway patent. NECK: Trachea midline. No JVD or lymphadenopathy. Supple, nontender, no meningeal signs. CARDIOVASCULAR: Regular rate and rhythm without murmurs, gallops, or rubs. RESPIRATORY: Clear to auscultation. Breath sounds equal bilaterally. No wheezes , rales, or rhonchi. GASTROINTESTINAL: Abdomen soft, non-tender, nondistended. No hepato-splenomegaly , or palpable masses. No guarding. MUSCULOSKELETAL: 2+ pitting edema to the mid kend[place] NEUROLOGICAL: Awake and alert. Cranial nerves II through XII intact. Motor and sensory grossly within normal limits. Normal speech. Laboratory Laboratory Tests Test 08/31/17 21:30 White Blood Count 7.0 Red Blood Count 3.31 Hemoglobin 6.6 Hematocrit 21.6 Mean Corpuscular Volume 65.2 Mean Corpuscular Hemoglobin 20.0 Mean Corpuscular Hemoglobin Concent 30.7 Red Cell Distribution Width 21.1 Platelet Count 260 Mean Platelet Volume 8.3 Neutrophils (%) (Auto) 55.1 Lymphocytes (%) (Auto) 22.9 Monocytes (%) (Auto) 15.3 Eosinophils (%) (Auto) 5.5 Basophils (%) (Auto) 1.2 Neutrophils # (Auto) 3.9 Lymphocytes # (Auto) 1.6 Monocytes # (Auto) 1.1 Eosinophils # (Auto) 0.4 Basophils # (Auto) 0.1 CBC Comment AUTO DIFF Differential Comment AUTO DIFF CONFIRMED Platelet Estimate NORMAL Platelet Morphology Comment NORMAL Prothrombin Time 13.4 Prothromb Time International Ratio 1.2 Activated Partial Thromboplast Time 29.4 Blood Urea Nitrogen 29 Creatinine 2.16 Random Glucose 186 Calcium Level 8.5 Magnesium Level 2.4 Sodium Level 140 Potassium Level 4.4 Chloride Level 107 Carbon Dioxide Level 28.5 Anion Gap 5 Estimat Glomerular Filtration Rate 36 Total Creatine Kinase 151 Creatine Kinase MB 2.2 Troponin I 0.02 B-Type Natriuretic Peptide 465 Result Diagram: 08/31/17212908/31/172129 Caprini VTE Risk Assessment Caprini VTE Risk Assessment: Mod/High Risk (score >= 2) Caprini Risk Assessment Model Point Value = 1 Point Value = 2 Point Value = 3 Point Value = 5 Age 41-60 Minor surgery BMI > 25 kg/m2 Swollen legs Varicose veins or History of unexplained or recurrent spontaneous Oral contraceptives or hormone replacement Sepsis (< 1 month) Serious lung disease, including pneumonia (< 1 month) Abnormal pulmonary function Acute myocardial infarction Congestive heart failure (< 1 month) History of inflammatory bowel disease Medical patient at bed rest Age 61-74 Arthroscopic surgery Major open surgery (> 45 min) Laparoscopic surgery (> 45 min) Malignancy Confined to bed (> 72 hours) Immobilizing plaster cast Central venous access Age >= 75 History of VTE Family history of VTE Factor V Leiden Prothrombin [id number] Lupus anticoagulant Anticardiolipin antibodies Elevated serum homocysteine Heparin-induced thrombocytopenia Other congenital or acquired thrombophilia Stroke (< 1 month) Elective arthroplasty Hip, pelvis, or leg fracture Acute spinal cord injury (< 1 month) Prophylaxis Regimen Total Risk Factor Score Risk Level Prophylaxis Regimen 0-1 Low Early ambulation 2 Moderate Order ONE of the following: *Sequential Compression Device (SCD) *Heparin 5000 units SQ BID 3-4 Higher Order ONE of the following medications: *Heparin 5000 units SQ TID *Enoxaparin/Lovenox 40 mg SQ daily (WT < 150 kg, CrCl > 30 mL/min) *Enoxaparin/Lovenox 30 mg SQ daily (WT < 150 kg, CrCl > 10-29 mL/min) *Enoxaparin/Lovenox 30 mg SQ BID (WT < 150 kg, CrCl > 30 mL/min) AND/OR *Sequential Compression Device (SCD) 5 or more Highest Order ONE of the following medications: *Heparin 5000 units SQ TID (Preferred with Epidurals) *Enoxaparin/Lovenox 40 mg SQ daily (WT < 150 kg, CrCl > 30 mL/min) *Enoxaparin/Lovenox 30 mg SQ daily (WT < 150 kg, CrCl > 10-29 mL/min) *Enoxaparin/Lovenox 30 mg SQ BID (WT < 150 kg, CrCl > 30 mL/min) AND *Sequential Compression Device (SCD) Assessment and Plan Assessment and Plan 77-year-old male with past medical history significant for hypertension, hyperlipidemia, CAD status post CABG and type 2 diabetes mellitus presents with symptomatic anemia. 1. GI bleed with severe anemia Receiving 2 units PRBCs Follow CBC IV Protonix Nothing by mouth Gastroenterology consulted, appreciate recommendations 2. Shortness of breath Likely secondary to severe anemia Chest x-ray showed subsegmental atelectasis at the lung bases, cardiomegaly. Reviewed by me Treatment as above 3. MARYLU Creatinine 2.16 (baseline 1.44) IV fluid hydration Monitor BMP 3. Diabetes mellitus Patient not currently taking any anti-hyperglycemics SSI A1c pending 4. Hypertension/hyperlipidemia Continue home medications FEN Nothing by mouth NS at 100 cc/hr Electrolytes: Monitor and replete when necessary Holding pharmacologic anticoagulation for GI bleed Physician Certification 2 Midnight Certification Type: Admission for Inpatient Services Order for Inpatient Services The services are ordered in accordance with Medicare regulations or non- Medicare payer requirements, as applicable. In the case of services not specified as inpatient-only, they are appropriately provided as inpatient services in accordance with the 2-midnight benchmark. Estimated LOS (days): 2 2 days is the estimated time the patient will need to remain in the hospital, assuming treatment plan goals are met and no additional complications. Post-Hospital Plan: Not yet determined Madalyn Mustafa MD Sep 01, 2017 00:17
[2017-09-01] MEDS ORDERED: DEXTROSE 50% IN WATER 50 ML VIAL(D50) IV PUSH PRN (02:00)
[2017-09-01] MEDS ORDERED: GLUCAGON 1 MG/ML VIAL OTHER PRN (02:00)
[2017-09-01] MEDS: INSULIN ASPART SUPPLEMENTAL SCALE SQ SCH ×4 (08:24→20:20)
[2017-09-01] MEDS: PRAVASTATIN SOD 40 MG TAB PO SCH (08:28)
[2017-09-01] MEDS: PANTOPRAZOLE SODIUM 40 MG VIAL IV PUSH SCH (08:28)
[2017-09-01] MEDS: METOPROLOL TARTRATE 50 MG TAB PO SCH ×2 (08:28→20:19)
[2017-09-01] MEDS: SODIUM CHLORIDE 0.9% FLUSH 10 ML FLUSH IV FLUSH SCH ×2 (08:28→20:20)
[2017-09-01] MEDS: TIMOLOL MALEATE 0.5% OPHT SOLN 5 ML BTL EACH EYE SCH ×2 (08:29→20:20)
[2017-09-01] MEDS ORDERED: INFLUENZA VIRUS VACCINE (QUADRIVALENT) 0.5 ML SYR IM ONE (09:00)
[2017-09-01] MEDS ORDERED: PNEUMOCOCCAL POLYVALENT INJ 25 MCG/0.5 ML SYR IM ONE (09:00)
--- NOTE | 2017-09-01 09:50 | PD.CONS ---
HPI History of Present Illness This is a 77 year old male with a history of CAD, HTN, DM, Hyperlipidemia who presented to the emergency room for evaluation of shortness of breath. He states that he has been having worsening shortness of breath over the past 3 weeks. Yesterday, it got to the point that he could not even walk up the driveway without stopping to catch his breath. He was seen in the emergency room for a cough and shortness of breath on 07/23/17 and was discharged home with a diagnosis with viral bronchitis. Of note, he did not have a CBC at that time. He came to the emergency room last night and was round to have an HH of 6.6/21.6 with Hemoccult positive stool. He was transfused 2 units packed red blood cells and the repeat labs are pending. He has not seen any obvious blood loss. He denies any nausea, vomiting, heartburn, reflux, decreased appetite, bowel changes, diarrhea, constipation, or hematochezia. He is not having any abdominal pain. He does note that he has had dark stools at time, but that he last moved his bowels this morning and they were light brown. He last had a colonoscopy about 12 years ago and reports that he is due for another. He is on Eliquis for history of atrial fibrillation. There is no family hx of esophageal, gastric, or colorectal cancer. (Heide Hargrove) PFSH Past Medical History Hyperlipidemia Hypertension Diabetes mellitus (on insulin) Coronary artery disease Diverticulitis Atrial fibrillation Past Surgical History CABG 3 on 01/02/17 Knee replacement Hemicolectomy for diverticulitis Colonoscopy (Heide Hargrove) Coded Allergies: codeine (Unverified Allergy, Severe, 08/31/17) *MDRO Multi-Drug Resistant Organism (Verified Adverse Reaction, Unknown, 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 Medications Last Impressions Chest X-Ray 08/31/172120 Signed Impressions: Service Date/Time: August 21:37 - CONCLUSION: 1. Postoperative median sternotomy. Subsegmental atelectasis at the lung bases. Cardiomegaly. Jason Villatoro MD Family History No family hx of esophageal, gastric, or colorectal cancer Social History Quit smoking 15 years ago. Denies alcohol. (Heide Hargrove) Review of Systems Constitutional: COMPLAINS OF: Fatigue, DENIES: Fever, Weight loss, Chills, Change in appetite Respiratory: COMPLAINS OF: Cough, Shortness of breath Cardiovascular: COMPLAINS OF: Lower Extremity Edema Gastrointestinal: DENIES: Abdominal pain, Black stools, Bloody stools, Constipation, Diarrhea, Nausea, Vomiting, Anorexia, Swelling of Abdomen, Hematemesis Hematologic/lymphatic: DENIES: Bruising Neurologic: DENIES: Headache Psychiatric: DENIES: Confusion (Heide Hargrove) GI Exam Vitals I&O Vital Signs Date Time Temp Pulse Resp B/P (MAP) Pulse Ox O2 Delivery O2 Flow Rate FiO2 09/01/17 04:20 98.1 102 24 116/72 97 09/01/17 04:01 97.6 92 24 131/75 97 09/01/17 04:00 98.3 102 20 158/70 (99) 98 09/01/17 01:04 97.6 100 20 140/80 (100) 98 09/01/17 00:45 09/01/17 00:42 98.3 93 18 141/83 98 09/01/17 00:17 98.3 90 22 142/73 99 08/31/17 23:48 92 18 134/85 (101) 97 Nasal Cannula 2.00 08/31/17 21:43 87 18 129/67 (87) 96 08/31/17 21:32 96 21 08/31/17 21:16 20 96 08/31/17 20:51 98.5 85 18 143/71 (95) 96 Room Air I/O 08/31/17 08/31/17 08/31/17 09/01/17 09/01/17 09/01/17 07:00 15:00 23:00 07:00 15:00 23:00 Intake Total 400 ml 400 ml Balance 400 ml 400 ml Intake Packed Cells 400 ml 400 ml # Bowel Movements 1 Laboratory Test 08/31/17 21:30 White Blood Count 7.0 TH/MM3 Red Blood Count 3.31 MIL/MM3 Hemoglobin 6.6 GM/DL Hematocrit 21.6 % Mean Corpuscular Volume 65.2 FL Mean Corpuscular Hemoglobin 20.0 PG Mean Corpuscular Hemoglobin Concent 30.7 % Red Cell Distribution Width 21.1 % Platelet Count 260 TH/MM3 Mean Platelet Volume 8.3 FL Neutrophils (%) (Auto) 55.1 % Lymphocytes (%) (Auto) 22.9 % Monocytes (%) (Auto) 15.3 % Eosinophils (%) (Auto) 5.5 % Basophils (%) (Auto) 1.2 % Neutrophils # (Auto) 3.9 TH/MM3 Lymphocytes # (Auto) 1.6 TH/MM3 Monocytes # (Auto) 1.1 TH/MM3 Eosinophils # (Auto) 0.4 TH/MM3 Basophils # (Auto) 0.1 TH/MM3 CBC Comment AUTO DIFF Differential Comment AUTO DIFF CONFIRMED Platelet Estimate NORMAL Platelet Morphology Comment NORMAL Prothrombin Time 13.4 SEC Prothromb Time International Ratio 1.2 RATIO Activated Partial Thromboplast Time 29.4 SEC Blood Urea Nitrogen 29 MG/DL Creatinine 2.16 MG/DL Random Glucose 186 MG/DL Calcium Level 8.5 MG/DL Magnesium Level 2.4 MG/DL Sodium Level 140 MEQ/L Potassium Level 4.4 MEQ/L Chloride Level 107 MEQ/L Carbon Dioxide Level 28.5 MEQ/L Anion Gap 5 MEQ/L Estimat Glomerular Filtration Rate 36 ML/MIN Total Creatine Kinase 151 U/L Creatine Kinase MB 2.2 NG/ML Troponin I 0.02 NG/ML B-Type Natriuretic Peptide 465 PG/ML Physical Examination HEENT: Normocephalic; atraumatic; no jaundice. CHEST: Resp. even/unlabored, expiratory wheezing CARDIAC: RRR ABDOMEN: Soft, nondistended, nontender; no hepatosplenomegaly; bowel sounds are present in all four quadrants. EXTREMITIES: Mild ble edema. SKIN: Normal; no rash; no jaundice. FILAMENT MAKER: No focal deficits; alert and oriented times three. (Heide Hargrove) Assessment and Plan Plan ASSESSMENT: - Severe anemia with Hemoccult positive stool. Pt on Eliquis for Afib. Has had dark stool intermittently, but no other GI symptoms. (+) 3 week hx of worsening SOB. HH 6.6/21.6. S/P 2 units PRBC. Rpt. labs pending. Last colonoscopy 12 years ago. - Hx atrial fibrillation. On eliquis at home. - Bronchitis. Duonebs. - MARYLU. Creat 2.16. - CAD, DM, HTN, Hyperlipidemia per attending. PLAN: - Plan for egd/colonoscopy on Monday - Obtain consents - [place] - Clear liquids Monday - NPO after MN Monday night - Golytely prep Monday - PPI - Monitor HH - Transfuse as necessary - Hold Eliquis - Supportive care - Further recommendations to follow based on results of above - Pt seen and examined by Dr. Medina and myself and this note is written on his behalf (Heide Hargrove) Physician Comments Seen and examinedw xena GALLO, egd/colonoscopy planned for monday. MOnitor labs. (Maya Medina MD) Heide Hargrove Sep 01, 2017 09:50 Maya Medina MD Sep 01, 2017 14:18
[2017-09-01] MEDS: RESP: ALBUTEROL 2.5 MG/IPRATROPIUM 0.5 MG NEB (PRN) NEB ×2 (09:52→17:21)
[2017-09-01 12:25] LABS: AUTOMATED NEUTROPHIL # 7.7 TH/MM3 (1.8-7.7); HEMATOCRIT 27.8 % (39.0-51.0); HEMO FLAGS DIFF FINAL; LYMPH % 9.1 % (9.0-44.0); LYMPHOCYTE # 0.8 TH/MM3 (1.0-4.8); MEAN CELL VOLUME 69.3 FL (80.0-100.0); MEAN CORPUSCULAR HEMOGLOBIN 21.4 PG (27.0-34.0); MEAN CORPUSCULAR HGB CONC 30.8 % (32.0-36.0); MONO % 1.7 % (0.0-8.0); NEUT % 89.2 % (16.0-70.0); PLATELET COUNT 268 TH/MM3 (150-450); RED BLOOD COUNT 4.02 MIL/MM3 (4.50-5.90); RED CELL DISTRIBUTION WIDTH 24.7 % (11.6-17.2); WHITE BLOOD COUNT 8.6 TH/MM3 (4.0-11.0)
[2017-09-01 12:44] LABS: BICARBONATE 24.1 MEQ/L (21.0-32.0); POTASSIUM 4.8 MEQ/L (3.5-5.1)
--- NOTE | 2017-09-01 13:16 | EKG ---
Date Performed: 08/31/2017 Time Performed: 21:41:09 PTAGE: 77 years EKG: ATRIAL FIBRILLATION LOW QRS VOLTAGE IN EXTREMITY LEADS PATTERN CONSISTENT WITH PULMONARY DI SEASE Since previous tracing, no significant change noted ABNORMAL ECG PREVIOUS TRACING : 01/09/2017 17.43 DOCTOR: Renan Wall Interpretating Date/Time 09/01/2017 13:14:24
[2017-09-01 16:23] LABS: HEMOGLOBIN A1a 1.5 %; HEMOGLOBIN A1b 0.7 %; HEMOGLOBIN Ao 62.7 %; HEMOGLOBIN LA1C 2.6 %; HEMOGLOBIN P3 3.7 %
[2017-09-02] VITALS (10 sets, daily range): BP systolic 124–143; BP diastolic 60–91; PULSE 73–88; RESP 17–22; TEMP 97.1–98; O2SAT 94–97
[2017-09-02] MEDS: RESP: ALBUTEROL 2.5 MG/IPRATROPIUM 0.5 MG NEB (PRN) NEB (05:59)
[2017-09-02] MEDS: INSULIN ASPART SUPPLEMENTAL SCALE SQ SCH ×4 (08:00→21:43)
[2017-09-02] MEDS: METOPROLOL TARTRATE 50 MG TAB PO SCH ×2 (08:11→21:42)
[2017-09-02] MEDS: PRAVASTATIN SOD 40 MG TAB PO SCH (08:11)
[2017-09-02] MEDS: PANTOPRAZOLE SODIUM 40 MG VIAL IV PUSH SCH ×2 (08:12→21:42)
[2017-09-02] MEDS: TIMOLOL MALEATE 0.5% OPHT SOLN 5 ML BTL EACH EYE SCH ×2 (09:00→21:42)
[2017-09-02] MEDS: SODIUM CHLORIDE 0.9% FLUSH 10 ML FLUSH IV FLUSH SCH ×2 (09:00→21:42)
--- NOTE | 2017-09-02 10:19 | HHI.PR ---
Subjective Remarks The patient said that his breathing was a little bit better. He has not had a bowel movement overnight. He wanted to know if he could go home following the endoscopies on Monday. He said his IV came out. Family at bedside. Their questions were answered. Objective Vitals Vital Signs Date Time Temp Pulse Resp B/P (MAP) Pulse Ox O2 Delivery O2 Flow Rate FiO2 09/02/17 08:07 97.9 83 22 137/86 (103) 95 09/02/17 05:59 94 Nasal Cannula 2.00 09/02/17 04:00 97.6 73 18 142/83 (102) 95 09/02/17 00:00 97.6 88 17 143/91 (108) 97 09/01/17 20:00 82 09/01/17 20:00 98.2 94 18 137/78 (97) 96 09/01/17 19:00 98 09/01/17 16:07 97.9 82 20 135/86 (102) 98 09/01/17 12:07 97.3 115 22 136/88 (104) 96 I/O 09/01/17 09/01/17 09/01/17 09/02/17 09/02/17 09/02/17 07:00 15:00 23:00 07:00 15:00 23:00 Intake Total 400 ml 400 ml 1320 ml 1500 ml Output Total 800 ml Balance 400 ml 400 ml 1320 ml 700 ml Intake Oral 320 ml 900 ml IV Total 1000 ml 600 ml Packed Cells 400 ml 400 ml Output Urine Total 800 ml # Voids 2 3 1 # Bowel Movements 2 0 1 Result Diagram: 09/01/17 1133 09/01/17 1133 Imaging Last Impressions Chest X-Ray 08/31/172120 Signed Impressions: Service Date/Time: August 21:37 - CONCLUSION: 1. Postoperative median sternotomy. Subsegmental atelectasis at the lung bases. Cardiomegaly. Jason Villatoro MD Objective Remarks GENERAL: Resting comfortably. SKIN: No rashes, ecchymoses or lesions. Cool and dry. Surgical scars noted on chest and abdomen. HEAD: Atraumatic. Normocephalic. No temporal or scalp tenderness. EYES: Pupils equal round and reactive. Extraocular motions intact. No scleral icterus. No injection or drainage. ENT: Nose without bleeding, purulent drainage or septal hematoma. Throat without erythema, tonsillar hypertrophy or exudate. Uvula midline. Airway patent. NECK: Trachea midline. No JVD or lymphadenopathy. Supple, nontender, no meningeal signs. CARDIOVASCULAR: Regular rate and rhythm. Grade 2 systolic murmur appreciated. RESPIRATORY: Clear to auscultation. Breath sounds equal bilaterally. No wheezes , rales, or rhonchi. GASTROINTESTINAL: Abdomen soft, non-tender, nondistended. No hepato-splenomegaly , or palpable masses. No guarding. MUSCULOSKELETAL: TR lower extremity edema noted. NEUROLOGICAL: Awake and alert. Cranial nerves II through XII intact. Motor and sensory grossly within normal limits. Normal speech. PSYCH: Mood and affect appropriate. Medications and IVs Current Medications Medications (Trade) Dose Ordered Sig/Dilan Route Start Time Stop Time Status Last Admin Sodium Chloride 1,000 ml @ 100 mls/hr Q10H IV 09/01/17 00:04 Future Hold 09/01/17 20:18 (NS Flush) 2 ml UNSCH PRN IV FLUSH 09/01/17 00:15 (NS Flush) 2 ml BID IV FLUSH 09/01/17 09:00 09/01/17 08:28 (Zofran Inj) 4 mg Q6H PRN IV PUSH 09/01/17 00:15 (Protonix Inj) 40 mg DAILY IV PUSH 09/01/17 09:00 09/02/17 08:12 (Norvasc) 10 mg DAILY PO 09/01/17 09:00 09/02/17 08:11 (Pravachol) 40 mg DAILY PO 09/01/17 09:00 09/02/17 08:11 (Lopressor) 50 mg BID PO 09/01/17 09:00 09/02/17 08:11 (Timoptic 0.5% Opth Soln) 1 drop BID EACH EYE 09/01/17 09:00 09/01/17 20:20 (D50w (Vial) Inj) 50 ml UNSCH PRN IV PUSH 09/01/17 02:00 (Glucagon Inj) 1 mg UNSCH PRN OTHER 09/01/17 02:00 (NovoLOG SUPPLEMENTAL SCALE) 1 ACHS SLIDING SCALE SQ 09/01/17 08:00 09/01/17 20:20 (Duoneb Neb) 1 ampule Q4HR NEB PRN NEB 09/01/17 09:30 09/02/17 05:59 (Colyte Liq) 4,000 ml ONCE ONCE PO 09/03/17 16:00 09/03/17 16:01 A/P Assessment and Plan 77-year-old male with past medical history significant for hypertension, hyperlipidemia, CAD status post CABG and type 2 diabetes mellitus presents with symptomatic anemia. GI bleed with severe anemia Received 2 units PRBCs. Hemoccult positive. GI consult appreciated. - Follow CBC and transfuse as needed. - IV Protonix. - EGD/ colonoscopy on Monday per GI. Shortness of breath Likely secondary to severe anemia. Chest x-ray showed subsegmental atelectasis at the lung bases, cardiomegaly. BNP 465. - Treatment as above. - d/c IVFs. MARYLU Creatinine 2.16 (baseline 1.44). - s/p IV fluid hydration. Resume as needed. - Monitor BMP. - avoid nephrotoxic agents. Diabetes mellitus Patient not currently taking any anti-hyperglycemics. A1c 6.5%. - SSI. - lifestyle modifications encouraged. PPx: SCDs Discharge Planning D/c following EGD/ colonoscopy on Monday Domenico Schaffer DO Sep 02, 2017 10:19
[2017-09-02 10:24] LABS: AUTOMATED NEUTROPHIL # 7.9 TH/MM3 (1.8-7.7); BASOPHIL % 0.1 % (0.0-2.0); HEMATOCRIT 26.9 % (39.0-51.0); HEMO FLAGS DIFF FINAL; LYMPH % 12.7 % (9.0-44.0); LYMPHOCYTE # 1.3 TH/MM3 (1.0-4.8); MEAN CELL VOLUME 69.4 FL (80.0-100.0); MEAN CORPUSCULAR HEMOGLOBIN 21.4 PG (27.0-34.0); MEAN CORPUSCULAR HGB CONC 30.9 % (32.0-36.0); MONO % 10.5 % (0.0-8.0); NEUT % 76.7 % (16.0-70.0); PLATELET COUNT 275 TH/MM3 (150-450); RED BLOOD COUNT 3.87 MIL/MM3 (4.50-5.90); RED CELL DISTRIBUTION WIDTH 24.3 % (11.6-17.2); WHITE BLOOD COUNT 10.3 TH/MM3 (4.0-11.0)
[2017-09-02 10:46] LABS: BICARBONATE 24.4 MEQ/L (21.0-32.0); POTASSIUM 4.7 MEQ/L (3.5-5.1)
[2017-09-03] VITALS (9 sets, daily range): BP systolic 124–150; BP diastolic 68–84; PULSE 72–100; RESP 17–21; TEMP 97.3–98.5; O2SAT 92–100
[2017-09-03] MEDS: RESP: ALBUTEROL 2.5 MG/IPRATROPIUM 0.5 MG NEB (PRN) NEB ×2 (00:03→05:28)
[2017-09-03 07:18] LABS: HEMATOCRIT 27.3 % (39.0-51.0); PLATELET COUNT 259 TH/MM3 (150-450); REVIEW FLAG FINAL; WHITE BLOOD COUNT 11.4 TH/MM3 (4.0-11.0)
[2017-09-03 07:21] LABS: MEAN CORPUSCULAR HGB CONC 29.9 % (32.0-36.0)
[2017-09-03 07:29] LABS: MAGNESIUM 2.8 MG/DL (1.5-2.5); POTASSIUM 4.7 MEQ/L (3.5-5.1)
[2017-09-03] MEDS: INSULIN ASPART SUPPLEMENTAL SCALE SQ SCH ×4 (08:00→21:00)
[2017-09-03] MEDS: PRAVASTATIN SOD 40 MG TAB PO SCH (09:02)
[2017-09-03] MEDS: PANTOPRAZOLE SODIUM 40 MG VIAL IV PUSH SCH ×2 (09:02→23:00)
[2017-09-03] MEDS: METOPROLOL TARTRATE 50 MG TAB PO SCH ×2 (09:02→23:00)
[2017-09-03] MEDS: TIMOLOL MALEATE 0.5% OPHT SOLN 5 ML BTL EACH EYE SCH ×2 (09:02→23:02)
[2017-09-03] MEDS: SODIUM CHLORIDE 0.9% FLUSH 10 ML FLUSH IV FLUSH SCH ×2 (09:08→21:00)
[2017-09-03] MEDS ORDERED: SODIUM CHLOR 0.45% 1000 ML INJ 1,000 ML IV SCH (10:45)
[2017-09-03] MEDS ORDERED: FUROSEMIDE 40 MG/4 ML VIAL IV PUSH ONE (11:00)
--- NOTE | 2017-09-03 11:30 | HHI.PR ---
Subjective Remarks The patient said that he had his home CPAP and would like to set up. He did report some shortness of breath. He wanted to know what time he would be going for the endoscopies tomorrow. He said the liquid diet this morning was good. His family was at the bedside. Their questions were answered. Discussed with nursing. Objective Vitals Vital Signs Date Time Temp Pulse Resp B/P (MAP) Pulse Ox O2 Delivery O2 Flow Rate FiO2 09/03/17 08:07 98.5 77 20 143/81 (101) 97 09/03/17 04:00 98.1 76 19 139/76 (97) 92 09/03/17 00:00 98.2 73 17 132/84 (100) 96 09/02/17 21:07 86 09/02/17 20:00 98.0 85 17 124/75 (91) 97 09/02/17 17:32 96 2.00 09/02/17 16:07 97.1 78 22 137/73 (94) 97 09/02/17 12:07 98.0 76 22 126/60 (82) 96 I/O 09/02/17 09/02/17 09/02/17 09/03/17 09/03/17 09/03/17 07:00 15:00 23:00 07:00 15:00 23:00 Intake Total 1500 ml 380 ml 500 ml Output Total 800 ml 800 ml Balance 700 ml 380 ml -300 ml Intake Oral 900 ml 380 ml 500 ml IV Total 600 ml Output Urine Total 800 ml 800 ml # Voids 1 4 # Bowel Movements 1 1 1 Result Diagram: 09/03/1762909/03/17629 Imaging Last Impressions Chest X-Ray 08/31/172120 Signed Impressions: Service Date/Time: August 21:37 - CONCLUSION: 1. Postoperative median sternotomy. Subsegmental atelectasis at the lung bases. Cardiomegaly. Jason Villatoro MD Objective Remarks GENERAL: Resting comfortably. SKIN: No rashes, ecchymoses or lesions. Cool and dry. Surgical scars noted on chest and abdomen. HEAD: Atraumatic. Normocephalic. No temporal or scalp tenderness. EYES: Pupils equal round and reactive. Extraocular motions intact. No scleral icterus. No injection or drainage. ENT: Nose without bleeding, purulent drainage or septal hematoma. Throat without erythema, tonsillar hypertrophy or exudate. Uvula midline. Airway patent. NECK: Trachea midline. No JVD or lymphadenopathy. Supple, nontender, no meningeal signs. CARDIOVASCULAR: Regular rate and rhythm. Grade 2 systolic murmur appreciated. RESPIRATORY: Crackles appreciated bilaterally. GASTROINTESTINAL: Abdomen soft, non-tender, nondistended. No hepato-splenomegaly , or palpable masses. No guarding. MUSCULOSKELETAL: 1+ lower extremity edema noted. NEUROLOGICAL: Awake and alert. Cranial nerves II through XII intact. Motor and sensory grossly within normal limits. Normal speech. PSYCH: Mood and affect appropriate. Medications and IVs Current Medications Medications (Trade) Dose Ordered Sig/Dilan Route Start Time Stop Time Status Last Admin (NS Flush) 2 ml UNSCH PRN IV FLUSH 09/01/17 00:15 (NS Flush) 2 ml BID IV FLUSH 09/01/17 09:00 09/03/17 09:08 (Zofran Inj) 4 mg Q6H PRN IV PUSH 09/01/17 00:15 (Norvasc) 10 mg DAILY PO 09/01/17 09:00 09/03/17 09:02 (Pravachol) 40 mg DAILY PO 09/01/17 09:00 09/03/17 09:02 (Lopressor) 50 mg BID PO 09/01/17 09:00 09/03/17 09:02 (Timoptic 0.5% Opth Soln) 1 drop BID EACH EYE 09/01/17 09:00 09/03/17 09:02 (D50w (Vial) Inj) 50 ml UNSCH PRN IV PUSH 09/01/17 02:00 (Glucagon Inj) 1 mg UNSCH PRN OTHER 09/01/17 02:00 (NovoLOG SUPPLEMENTAL SCALE) 1 ACHS SLIDING SCALE SQ 09/01/17 08:00 09/02/17 21:43 (Duoneb Neb) 1 ampule Q4HR NEB PRN NEB 09/01/17 09:30 09/03/17 05:28 (Colyte Liq) 4,000 ml ONCE ONCE PO 09/03/17 16:00 09/03/17 16:01 (Protonix Inj) 40 mg BID IV PUSH 09/02/17 21:00 09/03/17 09:02 A/P Assessment and Plan 77-year-old male with past medical history significant for hypertension, hyperlipidemia, CAD status post CABG and type 2 diabetes mellitus presents with symptomatic anemia. GI bleed with severe anemia Received 2 units PRBCs. Hemoccult positive. GI consult appreciated. Hemoglobin has been stable. - Follow CBC and transfuse as needed. - IV Protonix. - EGD/ colonoscopy on Monday per GI if respiratory status is stable. Acute respiratory failure/ CHF exacerbation, likely diastolic/ CRISTHIAN Compounded by severe anemia. Chest x-ray showed subsegmental atelectasis at the lung bases, cardiomegaly. BNP 465. Has crackles on exam and LE edema. On CPAP for CRISTHIAN at home. - Lasix 40 mg IV x1. - resume home CPAP. - wean oxygen as tolerated. - nebs as needed. - repeat CXR. MARYLU Creatinine 2.16 (baseline around 1.4). S/p IV fluid hydration. - Monitor BMP while diuresing. - avoid nephrotoxic agents. - nephrology consult requested. - check UA, calculate FENa. Diabetes mellitus Patient not currently taking any anti-hyperglycemics. A1c 6.5%. - SSI. - lifestyle modifications encouraged. Leukocytosis Afebrile. - check UA, CXR. PPx: SCDs Discharge Planning D/c following EGD/ colonoscopy on Monday if respiratory and renal statuses are stable Domenico Schaffer DO Sep 03, 2017 11:30
--- NOTE | 2017-09-03 11:47 | RADRPT ---
EXAM DATE/TIME: 09/03/2017 11:34 [facility] COMPARISON: CHEST SINGLE AP, July 23, 2017, 9:44. CHEST SINGLE AP, August 31, 2017, 21:37. INDICATIONS : Dyspnea MEDICAL HISTORY : Cardiovascular disease. SURGICAL HISTORY : CABG. ENCOUNTER: Subsequent ACUITY: 2 weeks PAIN SCORE: 0/10 LOCATION: chest FINDINGS: Moderate cardiomegaly is similar to prior when taking into account the lesser degree of inspiration. Tortuosity of the descending thoracic aorta. There is a focal non-consolidative opacity in the left lower lung which does not obscure the medial left hemidiaphragm. The right lung is clear.. Evidenc e of prior median sternotomy. CONCLUSION: Small non-consolidative infiltrate at the left lung base. Ralph Landaverde MD on September 03, 2017 at 11:44 Board Certified Radiologist. This report was verified electronically.
--- NOTE | 2017-09-03 12:48 | HHI.GIFU ---
Subjective Remarks Patient in no apparent distress. (Harmony Pederson) Objective Vitals I&O Vital Signs Date Time Temp Pulse Resp B/P (MAP) Pulse Ox O2 Delivery O2 Flow Rate FiO2 09/03/17 11:38 97 Nasal Cannula 2.00 09/03/17 08:07 98.5 77 20 143/81 (101) 97 09/03/17 04:00 98.1 76 19 139/76 (97) 92 09/03/17 00:00 98.2 73 17 132/84 (100) 96 09/02/17 21:07 86 09/02/17 20:00 98.0 85 17 124/75 (91) 97 09/02/17 17:32 96 2.00 09/02/17 16:07 97.1 78 22 137/73 (94) 97 I/O 09/02/17 09/02/17 09/02/17 09/03/17 09/03/17 09/03/17 07:00 15:00 23:00 07:00 15:00 23:00 Intake Total 1500 ml 380 ml 500 ml Output Total 800 ml 800 ml Balance 700 ml 380 ml -300 ml Intake Oral 900 ml 380 ml 500 ml IV Total 600 ml Output Urine Total 800 ml 800 ml # Voids 1 4 # Bowel Movements 1 1 1 Laboratory Laboratory Tests Test 09/03/17 06:30 White Blood Count 11.4 Red Blood Count 3.90 Hemoglobin 8.2 Hematocrit 27.3 Mean Corpuscular Volume 70.0 Mean Corpuscular Hemoglobin 21.0 Mean Corpuscular Hemoglobin Concent 29.9 Red Cell Distribution Width 25.0 Platelet Count 259 Mean Platelet Volume 7.9 Blood Urea Nitrogen 39 Creatinine 2.08 Random Glucose 159 Calcium Level 8.5 Magnesium Level 2.8 Sodium Level 142 Potassium Level 4.7 Chloride Level 109 Carbon Dioxide Level 28.0 Anion Gap 5 Estimat Glomerular Filtration Rate 38 Imaging Last Impressions Chest X-Ray 08/31/172120 Signed Impressions: Service Date/Time: August 21:37 - CONCLUSION: 1. Postoperative median sternotomy. Subsegmental atelectasis at the lung bases. Cardiomegaly. Jason Villatoro MD Physical Exam HEENT: Normocephalic; atraumatic; no jaundice. NECK: Neck is supple CHEST: Crackles bilaterally CARDIAC: Regular rate and rhythm. Systolic murmur. ABDOMEN: Soft, nondistended, nontender; no hepatosplenomegaly; bowel sounds are present in all four quadrants. EXTREMITIES: 1 + LE edema SKIN: Normal; no rash; no jaundice. 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 (Harmony Pederson) Assessment and Plan Plan ASSESSMENT: - Severe anemia with Hemoccult positive stool. Pt on Eliquis (on hold) for Afib. Has had dark stool intermittently, but no other GI symptoms. Reports 3 week hx of worsening SOB. HH 8.2/27.3 today. S/P 2 units PRBC on 09/01. Last colonoscopy 12 years ago. - Hx atrial fibrillation. On eliquis at home. Eliquis on hold. - Acute respiratory failure/CHF exacerbation. On CPAP at home. CXR 09/03/17-- Small non-consolidative infiltrate at the left lung base. - MARYLU. Creat 2.16. - CAD, DM, HTN, Hyperlipidemia per attending. PLAN: - Plan for EGD/Colonoscopy on Monday if respiratory status is stable - Clear liquids today - NPO after MN tonight - Golytely prep today - PPI - Monitor HH, transfuse as necessary - Hold Eliquis - Supportive care - Further recommendations to follow based on results of above Patient seen and examined by Dr. 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 EGD/Colonoscopy tentatively planned for monday if respiratory status ok. (Maya Medina MD) Harmony Pederson Sep 03, 2017 12:48 Maya Medina MD Sep 03, 2017 13:09
[2017-09-03 13:08] LABS: BLOOD, URINE NEG (NEG); COMMENT (UR) CULT NOT INDICATED; CULTURE IF INDICATED CULT NOT INDICATED; GLUCOSE,URINE NEG (NEG); KETONE, URINE NEG (NEG); MUCUS URINE FEW /lpf (OCC); NITRITE,URINE NEG (NEG); URINE COLOR LIGHT-YELLOW (YELLW/STRAW)
--- NOTE | 2017-09-03 15:23 | PD.CONS ---
HPI Service Nephrology Consult Requested By Dr. Schaffer Reason for Consult Acute renal failure Primary Care Physician Rena Cárdenas MD History of Present Illness Patient is a 77-year-old male with history of chronic kidney disease creatinine of 1.2-1.4, diabetes, coronary artery disease status post CABG in December, he was having increasing shortness of breath and has been admitted to the floor, patient has previously came to the emergency and was sent home with a diagnosis of bronchitis however he didn't feel well then came back and found to have hemoglobin of 6.6 creatinine was above 2, he is passing urine she said he has some edema as well, for his pain he takes Goody's powder which has aspirin, acetaminophen and caffeine Review of Systems Constitutional: COMPLAINS OF: Fatigue Respiratory: COMPLAINS OF: Shortness of breath Cardiovascular: COMPLAINS OF: Lower Extremity Edema Gastrointestinal: COMPLAINS OF: Black stools Musculoskeletal: COMPLAINS OF: Joint pain, Muscle aches, Joint Swelling, Back pain Neurologic: COMPLAINS OF: Abnormal gait Past Family Social History Allergies: Coded Allergies: codeine (Unverified Allergy, Severe, 08/31/17) *MDRO Multi-Drug Resistant Organism (Verified Adverse Reaction, Unknown, 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 Past Medical History Hyperlipidemia Hypertension Diabetes mellitus (on insulin) Coronary artery disease Diverticulitis Atrial fibrillation Past Surgical History CABG 3 on 01/02/17 Knee replacement Hemicolectomy for diverticulitis Colonoscopy Reported Medications Reported Meds & Active Scripts Active Norvasc (Amlodipine Besylate) 10 Mg Tab 10 Mg PO DAILY Metoprolol Tartrate 50 Mg Tab 50 Mg PO BID Eliquis (Apixaban) 2.5 Mg Tab 2.5 Mg PO BID Reported Timolol Opth Drops 0.5 % Soln 1 Drop EACH EYE BID Lovastatin 40 Mg Tab 40 Mg PO DAILY Active Ordered Medications Current Medications Medications (Trade) Dose Ordered Sig/Dilan Route Start Time Stop Time Status Last Admin (NS Flush) 2 ml UNSCH PRN IV FLUSH 09/01/17 00:15 (NS Flush) 2 ml BID IV FLUSH 09/01/17 09:00 09/03/17 09:08 (Zofran Inj) 4 mg Q6H PRN IV PUSH 09/01/17 00:15 (Norvasc) 10 mg DAILY PO 09/01/17 09:00 09/03/17 09:02 (Pravachol) 40 mg DAILY PO 09/01/17 09:00 09/03/17 09:02 (Lopressor) 50 mg BID PO 09/01/17 09:00 09/03/17 09:02 (Timoptic 0.5% Opth Soln) 1 drop BID EACH EYE 09/01/17 09:00 09/03/17 09:02 (D50w (Vial) Inj) 50 ml UNSCH PRN IV PUSH 09/01/17 02:00 (Glucagon Inj) 1 mg UNSCH PRN OTHER 09/01/17 02:00 (NovoLOG SUPPLEMENTAL SCALE) 1 ACHS SLIDING SCALE SQ 09/01/17 08:00 09/02/17 21:43 (Duoneb Neb) 1 ampule Q4HR NEB PRN NEB 09/01/17 09:30 09/03/17 05:28 (Colyte Liq) 4,000 ml ONCE ONCE PO 09/03/17 16:00 09/03/17 16:01 (Protonix Inj) 40 mg BID IV PUSH 09/02/17 21:00 09/03/17 09:02 Family History Noncontributory Social History Used to smoke stopped and denies alcohol use Physical Exam Vital Signs Vital Signs Date Time Temp Pulse Resp B/P (MAP) Pulse Ox O2 Delivery O2 Flow Rate FiO2 09/03/17 15:11 72 09/03/17 12:07 97.6 78 20 131/80 (97) 98 09/03/17 11:38 97 Nasal Cannula 2.00 09/03/17 08:07 98.5 77 20 143/81 (101) 97 09/03/17 04:00 98.1 76 19 139/76 (97) 92 09/03/17 00:00 98.2 73 17 132/84 (100) 96 09/02/17 21:07 86 09/02/17 20:00 98.0 85 17 124/75 (91) 97 09/02/17 17:32 96 2.00 09/02/17 16:07 97.1 78 22 137/73 (94) 97 Physical Exam GENERAL: Well-nourished, well-developed patient. SKIN: Warm and dry. HEAD: Normocephalic. EYES: No scleral icterus. No injection or drainage. NECK: Supple, trachea midline. No JVD or lymphadenopathy. CARDIOVASCULAR: S1 and S2 irregularly irregular RESPIRATORY: Breath sounds equal bilaterally. No accessory muscle use. GASTROINTESTINAL: Abdomen soft, non-tender, nondistended. EXTREMITIES: No cyanosis, 1+ edema. NEUROLOGICAL: Awake, alert, and oriented x 3. Non-focal. Laboratory Laboratory Tests Test 09/03/17 06:30 09/03/17 12:32 White Blood Count 11.4 Red Blood Count 3.90 Hemoglobin 8.2 Hematocrit 27.3 Mean Corpuscular Volume 70.0 Mean Corpuscular Hemoglobin 21.0 Mean Corpuscular Hemoglobin Concent 29.9 Red Cell Distribution Width 25.0 Platelet Count 259 Mean Platelet Volume 7.9 Blood Urea Nitrogen 39 Creatinine 2.08 Random Glucose 159 Calcium Level 8.5 Magnesium Level 2.8 Sodium Level 142 Potassium Level 4.7 Chloride Level 109 Carbon Dioxide Level 28.0 Anion Gap 5 Estimat Glomerular Filtration Rate 38 Urine Color LIGHT-YELLOW Urine Turbidity CLEAR Urine pH 5.0 Urine Specific [place] 1.011 Urine Protein TRACE Urine Glucose (UA) NEG Urine Ketones NEG Urine Occult Blood NEG Urine Nitrite NEG Urine Bilirubin NEG Urine Urobilinogen LESS THAN 2.0 Urine Leukocyte Esterase NEG Urine RBC 1 Urine WBC LESS THAN 1 Urine Mucus FEW Microscopic Urinalysis Comment CULT NOT INDICATED Urine Random Creatinine 57.2 Urine Random Sodium 47 Result Diagram: 09/03/1762909/03/17629 Imaging Last Impressions Chest X-Ray 08/31/172120 Signed Impressions: Service Date/Time: August 21:37 - CONCLUSION: 1. Postoperative median sternotomy. Subsegmental atelectasis at the lung bases. Cardiomegaly. Jason Villatoro MD Assessment and Plan Problem List: (1) Acute renal failure ICD Codes: N17.9 - Acute kidney failure, unspecified Plan: Patient has been taking Goody's powder which has aspirin in it may cause her kidney dysfunction and GI bleed I will do a baseline kidney ultrasound, NEDA and protein electrophoresis Continue to monitor Check urine sodium, protein to creatinine ratio and eosinophils Avoid nephrotoxins (2) CKD (chronic kidney disease) stage 3, GFR 30-59 ml/min ICD Codes: N18.3 - Chronic kidney disease, stage 3 (moderate) Status: Chronic Plan: Baseline creatinine is around 1.2-1.4 (3) Diabetes ICD Codes: E11.9 - Type 2 diabetes mellitus without complications Status: Chronic Plan: Continue to monitor blood glucose (4) GI bleed ICD Codes: K92.2 - Gastrointestinal hemorrhage, unspecified Status: Acute Plan: Going for endoscopy and possible colonoscopy (5) Hypertension ICD Codes: I10 - Essential (primary) hypertension Status: Acute Plan: Continue to monitor Problem Qualifiers (1) Acute renal failure: Qualified Codes: N17.9 - Acute kidney failure, unspecified (2) Diabetes: (3) GI bleed: Qualified Codes: K92.2 - Gastrointestinal hemorrhage, unspecified Geni Mccallum MD Sep 03, 2017 15:23
[2017-09-03] MEDS: AZITHROMYCIN INJ 500 MG in SODIUM CHLOR 0.9% 250 ML INJ 250 ML IV SCH (15:50)
[2017-09-03] MEDS ORDERED: PEG (High)/E-LYTE SOLN 4000 ML BTL PO ONE (16:00)
[2017-09-03] MEDS: cefTRIAXone INJ 1,000 MG in SODIUM CHLORIDE 0.9% INJ 100 ML IV SCH (16:08)
--- NOTE | 2017-09-03 18:10 | RADRPT ---
EXAM DATE/TIME: 09/03/2017 16:41 [facility] COMPARISON: No previous studies available for comparison. INDICATIONS : Increased Bun and Creatinine. MEDICAL HISTORY : Vertigo. CHF. Hypercholesterol. Afib. Hypertension. SURGICAL HISTORY : CABG. Colon resection. Right knee surgery. Left knee replacement. ENCOUNTER: Initial ACUITY: 1 day PAIN SCORE: 0/10 LOCATION: Bilateral flank MEASUREMENTS: RIGHT KIDNEY: 9.4 x 5.2 x 5.2 cm LEFT KIDNEY: 11.5 x 7.1 x 7.5 cm FINDINGS: Bilateral renal cysts present measuring up to 3 cm on the right and 3.8 cm on the left. Mild hydronep hrosis of the right kidney. Left kidney difficult to visualize. Bladder unremarkable. Minimal free fl uid right upper quadrant. CONCLUSION: 1. Mild hydronephrosis right kidney. 2. Bilateral renal cysts. Minimal free fluid. Jason Villatoro MD on September 03, 2017 at 18:07 Board Certified Radiologist. This report was verified electronically.
[2017-09-03] MEDS ORDERED: METOPROLOL TARTRATE 25 MG TAB PO PRN (23:15)
[2017-09-03] MEDS ORDERED: INSULIN HUMAN REGULAR 1,000 UNITS/10 ML VIAL SQ PRN (23:15)
[2017-09-03] MEDS ORDERED: CHLORHEXIDINE GLUCONATE 2 % 1 PACK (2 CLOTHS) TOPICAL PRN (23:15)
[2017-09-03] MEDS ORDERED: LACTATED RINGER'S 1000 ML IV PRN (23:15)
[2017-09-03] MEDS ORDERED: POVIDONE IODINE 5% (ANTISEPSIS KIT) 4 APPLICATIONS EACH NARE PRN (23:15)
[2017-09-03] MEDS ORDERED: SODIUM CHLORID 0.9% 500 ML IV PRN (23:15)
[2017-09-04] VITALS (8 sets, daily range): BP systolic 123–157; BP diastolic 67–96; PULSE 76–95; RESP 18–20; TEMP 97.5–98.2; O2SAT 90–97
[2017-09-04] MEDS: RESP: ALBUTEROL 2.5 MG/IPRATROPIUM 0.5 MG NEB (PRN) NEB (04:18)
[2017-09-04] MEDS: INSULIN ASPART SUPPLEMENTAL SCALE SQ SCH ×4 (08:00→22:55)
[2017-09-04 08:02] LABS: HEMATOCRIT 29.5 % (39.0-51.0); MEAN CELL VOLUME 69.7 FL (80.0-100.0); MEAN CORPUSCULAR HEMOGLOBIN 21.4 PG (27.0-34.0); MEAN CORPUSCULAR HGB CONC 30.7 % (32.0-36.0); PLATELET COUNT 250 TH/MM3 (150-450); RED BLOOD COUNT 4.24 MIL/MM3 (4.50-5.90)
[2017-09-04 08:07] LABS: REVIEW FLAG FINAL
[2017-09-04 08:12] LABS: INTERNATIONAL NORMALIZED RATIO 1.1 RATIO; PROTHROMBIN TIME - PATIENT 12.7 SEC (9.8-11.6)
[2017-09-04 08:28] LABS: BICARBONATE 30.6 MEQ/L (21.0-32.0); MAGNESIUM 2.4 MG/DL (1.5-2.5); POTASSIUM 3.9 MEQ/L (3.5-5.1); TOTAL PROTEIN SPE 7.3 GM/DL (6.0-7.6)
[2017-09-04] MEDS: SODIUM CHLORIDE 0.9% FLUSH 10 ML FLUSH IV FLUSH SCH ×2 (09:00→22:37)
[2017-09-04] MEDS: TIMOLOL MALEATE 0.5% OPHT SOLN 5 ML BTL EACH EYE SCH ×2 (09:00→22:37)
[2017-09-04] MEDS: METOPROLOL TARTRATE 50 MG TAB PO SCH ×2 (10:02→22:37)
[2017-09-04] MEDS: PRAVASTATIN SOD 40 MG TAB PO SCH (10:03)
[2017-09-04] MEDS: PANTOPRAZOLE SODIUM 40 MG VIAL IV PUSH SCH ×2 (10:05→22:36)
--- NOTE | 2017-09-04 13:43 | GIPROC ---
[facility] [address] [facility]. [facility], [address] COLONOSCOPY PROCEDURE REPORT EXAM DATE: 09/04/2017 PATIENT NAME: Samantha Sears MR #: [id number] BIRTHDATE: 1940 ENDOSCOPIST: Smita Roldan MD ORDER #: [id number] IGNITER CAPPER: Oleg Mc and Julia Jolley STATUS: inpatient INDICATIONS: The patient is a 77 yr old male here for a colonoscopy due to anemia-iron deficiency PROCEDURE PERFORMED: Colonoscopy with control of bleeding Colonoscopy with polypectomy MEDICATIONS: None and Per Anesthesia. PREP QUALITY: fair PREP TYPE:Other: ESTIMATED BLOOD LOSS: None CONSENT: The patient understands the risks and benefits of the procedure and understands that these risks include, but are not limited to: sedation, allergic reaction, infection, perforation and/or bleeding. Alternative means of evaluation and treatment include, among others: physical exam, x-rays, and/or surgical intervention. The patient elects to proceed with this endoscopic procedure. medical equipment was checked for proper function. Hand hygiene and appropriate measures for infection prevention was taken. After the risks, benefits and alternatives of the procedure were thoroughly explained, Informed consent was verified, confirmed and timeout was successfully executed by the treatment team. A digital exam was performed, revealed external hemorrhoids, and revealed a nodule prostate The Pentax EC-[id number] endoscope was introduced through the anus and advanced to the cecum, which was identified by both the appendix and ileocecal valve. The instrument was then slowly withdrawn as the colon was fully examined. COLON FINDINGS: Very spastic colon four polyps in descending -pedunculated- 9 mm,8 mm, 7 mm, 6 mm-hot snare polyetomy with complete removal after removing the latgest one-some bleeding was notrd- 2 clips applied at the base-no further bledding All polyps were in same area of descending colon few small diverticulae in sigmoid. Retroflexed views revealed internal hemorrhoids and Retroflexed views revealed large internal hemorrhoids The scope was then completely withdrawn from the patient and the procedure terminated. PROCEDURE WITHDRAWAL TIME:14minutes ADVERSE EVENTS: There were no complications. IMPRESSIONS: 1. Very spastic colon four polyps in descending -pedunculated- 9 mm,8 mm, 7 mm, 6 mm-hot snare polyetomy with complete removal after removing the latgest one-some bleeding was notrd- 2 clips applied at the base-no further bledding All polyps were in same area of descending colon few small diverticulae in sigmoid 2. Retroflexed views revealed internal hemorrhoids 3. Retroflexed views revealed large internal hemorrhoids 4. Was performed 5. Revealed external hemorrhoids 6. Revealed a nodule prostate RECOMMENDATIONS: 1. Await biopsy results. Biopsy results will not be ready for 7-10 days. If you don't hear from us in two weeks, call our office for results. 2. Benefiber 2 tsp daily 3. Probiotics from any C or health food store 4. Sbft RECALL: Return 1 year Colonoscopy Smita Roldan MD eSigned: Smita Roldan MD 09/04/2017 1:43 PM cc: PATIENT NAME: Samantha Sears Dori MR#: [id number]
--- NOTE | 2017-09-04 13:45 | GIPROC ---
[facility] [address] [facility]. [facility], [address] EGD PROCEDURE REPORT EXAM DATE: 09/04/2017 PATIENT NAME: Samantha Sears MR #: [id number] BIRTHDATE: 1940 ATTENDING: Smita Roldan MD ORDER #: [id number] LOSS PREVENTION REPRESENTATIVE: Oleg Mc and Julia Jolley STATUS: inpatient INDICATIONS: The patient is a 77 yr old male here for an EGD due to anemia PROCEDURE PERFORMED: EGD w/ biopsy MEDICATIONS: None and Per Anesthesia. TOPICAL ANESTHETIC: none CONSENT: The patient understands the risks and benefits of the procedure and understands that these risks include, but are not limited to: sedation, allergic reaction, infection, perforation and/or bleeding. Alternative means of evaluation and treatment include, among others: physical exam, x-rays, and/or surgical intervention. The patient elects to proceed with this endoscopic procedure. medical equipment was checked for proper function. Hand hygiene and appropriate measures for infection prevention was taken. After the risks, benefits and alternatives of the procedure were thoroughly explained, Informed consent was verified, confirmed and timeout was successfully executed by the treatment team. The patient was anesthetized with topical anesthesia and the EC-[id number] (Pedi C) endoscope was introduced through the mouth and advanced to the second portion of the duodenum. Retroflexed views revealed a hiatal hernia The gastroscope was then slowly withdrawn and removed. Duodenum normal-biopsy gastritis antrum-biopsy esophagitis distal esophagus. ADVERSE EVENTS: There were no complications. IMPRESSIONS: 1. Duodenum normal-biopsy gastritis antrum-biopsy esophagitis distal esophagus 2. Retroflexed views revealed a hiatal hernia RECOMMENDATIONS: 1. Await biopsy results. Biopsy results will not be ready for 7-10 days. If you don't hear from us in two weeks, call our office for biopsy results. 2. Anti-reflux regimen 3. Continue PPI 4. Avoid NSAIDS PATIENT CONDITION: stable DISPOSITION: Inpatient REPEAT EXAM: Return 3 years EGD Smita Roldan MD eSigned: Smita Roldan MD 09/04/2017 1:45 PM cc:
[2017-09-04] MEDS ORDERED: DIATRIZOATE MEGLUM/DIATRIZOATE SOD 9 ML CUP PO ONE (14:15)
--- NOTE | 2017-09-04 15:20 | HHI.PR ---
Subjective Remarks The patient was lethargic following endoscopy and colonoscopy. He wanted to go home today. He says his breathing was okay. Family at the bedside. Discussed with nursing Objective Vitals Vital Signs Date Time Temp Pulse Resp B/P (MAP) Pulse Ox O2 Delivery O2 Flow Rate FiO2 09/04/17 14:00 74 18 120/80 (93) 94 Nasal Cannula 2 09/04/17 08:20 86 09/04/17 08:00 97.6 93 20 157/96 (116) 97 09/04/17 04:21 91 Nasal Cannula 2.00 09/04/17 04:00 98.0 89 19 154/92 (112) 90 09/04/17 00:00 98.2 80 19 140/72 (94) 96 09/03/17 21:40 94 09/03/17 20:00 97.3 100 21 124/74 (91) 94 09/03/17 16:07 98.4 77 20 138/68 (91) 92 I/O 09/03/17 09/03/17 09/03/17 09/04/17 09/04/17 09/04/17 07:00 15:00 23:00 07:00 15:00 23:00 Intake Total 500 ml 1730 ml 4000 ml 600 ml Output Total 800 ml 1000 ml 5700 ml Balance -300 ml 730 ml -1700 ml 600 ml Intake Oral 500 ml 480 ml 4000 ml IV Total 1250 ml Other 600 ml Output Urine Total 800 ml 1000 ml 2700 ml Stool Total 3000 ml # Bowel Movements 1 1 15 1 Result Diagram: 09/04/1725 09/04/17 0625 Imaging Last Impressions Renal Ultrasound 09/03/17 0000 Signed Impressions: Service Date/Time: Sunday, September 03, 2017 16:41 - CONCLUSION: 1. Mild hydronephrosis right kidney. 2. Bilateral renal cysts. Minimal free fluid. Jason Villatoro MD Chest X-Ray 09/03/17 0000 Signed Impressions: Service Date/Time: Sunday, September 03, 2017 11:34 - CONCLUSION: Small non-consolidative infiltrate at the left lung base. Ralph Landaverde MD Objective Remarks GENERAL: Resting comfortably. SKIN: No rashes, ecchymoses or lesions. Cool and dry. Surgical scars noted on chest and abdomen. HEAD: Atraumatic. Normocephalic. No temporal or scalp tenderness. EYES: Pupils equal round and reactive. Extraocular motions intact. No scleral icterus. No injection or drainage. ENT: Nose without bleeding, purulent drainage or septal hematoma. Throat without erythema, tonsillar hypertrophy or exudate. Uvula midline. Airway patent. NECK: Trachea midline. No JVD or lymphadenopathy. Supple, nontender, no meningeal signs. CARDIOVASCULAR: Regular rate and rhythm. Grade 2 systolic murmur appreciated. RESPIRATORY: Crackles appreciated bilaterally. GASTROINTESTINAL: Abdomen soft, non-tender, nondistended. No hepato-splenomegaly , or palpable masses. No guarding. MUSCULOSKELETAL: 1+ lower extremity edema noted. NEUROLOGICAL: Awake and alert. Cranial nerves II through XII intact. Motor and sensory grossly within normal limits. Normal speech. PSYCH: Mood and affect appropriate. Procedures Endoscopy/ colonoscopy 09/04 Medications and IVs Current Medications Medications (Trade) Dose Ordered Sig/Dilan Route Start Time Stop Time Status Last Admin (NS Flush) 2 ml UNSCH PRN IV FLUSH 09/01/17 00:15 (NS Flush) 2 ml BID IV FLUSH 09/01/17 09:00 09/04/17 09:00 (Zofran Inj) 4 mg Q6H PRN IV PUSH 09/01/17 00:15 (Norvasc) 10 mg DAILY PO 09/01/17 09:00 09/04/17 10:03 (Pravachol) 40 mg DAILY PO 09/01/17 09:00 09/04/17 10:03 (Lopressor) 50 mg BID PO 09/01/17 09:00 09/04/17 10:02 (Timoptic 0.5% Opth Soln) 1 drop BID EACH EYE 09/01/17 09:00 09/04/17 09:00 (D50w (Vial) Inj) 50 ml UNSCH PRN IV PUSH 09/01/17 02:00 (Glucagon Inj) 1 mg UNSCH PRN OTHER 09/01/17 02:00 (NovoLOG SUPPLEMENTAL SCALE) 1 ACHS SLIDING SCALE SQ 09/01/17 08:00 09/03/17 16:06 (Duoneb Neb) 1 ampule Q4HR NEB PRN NEB 09/01/17 09:30 09/04/17 04:18 (Protonix Inj) 40 mg BID IV PUSH 09/02/17 21:00 09/04/17 10:05 Azithromycin 500 mg/Sodium Chloride 250 ml @ 250 mls/hr Q24H IV 09/03/17 16:00 09/03/17 15:50 Ceftriaxone Sodium 1000 mg/ Sodium Chloride 100 ml @ 200 mls/hr Q24H IV 09/03/17 17:00 09/03/17 16:08 Lactated Ringer's 1,000 ml @ 30 mls/hr Q24H PRN IV 09/03/17 23:15 09/06/17 23:14 Sodium Chloride 500 ml @ 30 mls/hr [id number] PRN IV 09/03/17 23:15 09/06/17 23:14 (Lopressor) 25 mg CATALYST OPERATOR GASOLINE PRN PO 09/03/17 23:15 09/06/17 23:14 (Betadine 5% Antisepsis Kit) 1 applic CATALYST OPERATOR GASOLINE PRN EACH NARE 09/03/17 23:15 09/06/17 23:14 (Chlorhexidine 2% Cloth) 3 pack CATALYST OPERATOR GASOLINE PRN TOPICAL 09/03/17 23:15 09/06/17 23:14 (NovoLIN R INJ) See Protocol Table ... CATALYST OPERATOR GASOLINE PRN SQ 09/03/17 23:15 09/06/17 23:14 A/P Assessment and Plan 77-year-old male with past medical history significant for hypertension, hyperlipidemia, CAD status post CABG and type 2 diabetes mellitus presents with symptomatic anemia. GI bleed with severe anemia Received 2 units PRBCs. Hemoccult positive. GI consult appreciated. Hemoglobin has been stable. EGD showed: gastritis antrum; esophagitis distal esophagus; Retroflexed views revealed a hiatal hernia. Colonoscopy showed: Very spastic colon; four polyps in descending -pedunculated- 9 mm,8 mm, 7 mm, 6 mm-hot snare polyetomy with complete removal after removing the largest one-some bleeding was noted- 2 clips applied at the base-no further bleeding; All polyps were in same area of descending colon; few small diverticulae in sigmoid; Retroflexed views revealed large internal hemorrhoids; external hemorrhoids. - CT of the abdomen per GI pending. - follow pathology. - Follow CBC and transfuse as needed. - PPI. Acute respiratory failure/ CHF exacerbation, likely diastolic/ CRISTHIAN Compounded by severe anemia. Chest x-ray showed subsegmental atelectasis at the lung bases, cardiomegaly. BNP 465. Has crackles on exam and LE edema. On CPAP for CRISTHIAN at home. Repeat CXR with concern for left sided infiltrate. - resume home CPAP. - wean oxygen as tolerated. - nebs as needed. - IV ceftriaxone and azithromycin started 09/03. - oxygen walk test requested. MARYLU Creatinine 2.16 (baseline around 1.4). S/p IV fluid hydration. Improved. Nephrology consult appreciated. FENa 2.8%, consistent with intrinsic disease. - Monitor BMP while diuresing. - avoid nephrotoxic agents. - follow up with nephrology. Diabetes mellitus Patient not currently taking any anti-hyperglycemics. A1c 6.5%. - SSI. - lifestyle modifications encouraged. PPx: SCDs Discharge Planning Anticipate d/c in AM if CT abdomen is stable and after home oxygen walk test is done. Domenico Schaffer DO Sep 04, 2017 15:20
[2017-09-04] MEDS: AZITHROMYCIN INJ 500 MG in SODIUM CHLOR 0.9% 250 ML INJ 250 ML IV SCH (16:00)
--- NOTE | 2017-09-04 16:36 | HHI.NPPN ---
Subjective History of Present Illness 77 year old male with ARF/CKD Diabetes Objective Data Data 09/04/17 09/05/17 18:59 06:59 Intake Total 600 ml Balance 600 ml Other 600 ml # Bowel Movements 1 Vital Signs Date Time Temp Pulse Resp B/P (MAP) Pulse Ox O2 Delivery O2 Flow Rate FiO2 09/04/17 14:00 74 18 120/80 (93) 94 Nasal Cannula 2 09/04/17 08:20 86 09/04/17 08:00 97.6 93 20 157/96 (116) 97 09/04/17 04:21 91 Nasal Cannula 2.00 09/04/17 04:00 98.0 89 19 154/92 (112) 90 09/04/17 00:00 98.2 80 19 140/72 (94) 96 09/03/17 21:40 94 09/03/17 20:00 97.3 100 21 124/74 (91) 94 -: 09/04/17 0625 09/04/17 0625 Physical Exam General Appearance: Well Developed, Well Nourished Neck Neck Exam: Neck Supple Pulmonary Resp Exam: Clear Bilaterally, Breath Sounds Equal Cardiology CV Exam: Regular, Normal Sinus Rhythm Gastrointestinal/Abdomen GI Exam: Soft, Non-Tender, Bowel Sounds Present Integumentary Skin Exam: Clear Extremeties Extremities Exam: No Edema Assessment/Plan Problem List: (1) Acute renal failure ICD Codes: N17.9 - Acute kidney failure, unspecified Plan: Patient has been taking Goody's powder which has aspirin Patient had an endoscopy and colonoscopy no active bleeding seen a polyp was removed biopsy is pending Creatinine declined Likely due to prerenal azotemia and use of NSAID (2) CKD (chronic kidney disease) stage 3, GFR 30-59 ml/min ICD Codes: N18.3 - Chronic kidney disease, stage 3 (moderate) Status: Chronic Plan: Baseline creatinine is around 1.2-1.4 (3) Diabetes ICD Codes: E11.9 - Type 2 diabetes mellitus without complications Status: Chronic Plan: Continue to monitor blood glucose (4) GI bleed ICD Codes: K92.2 - Gastrointestinal hemorrhage, unspecified Status: Acute Plan: Going for endoscopy and possible colonoscopy (5) Hypertension ICD Codes: I10 - Essential (primary) hypertension Status: Acute Plan: Continue to monitor Problem Qualifiers (1) Acute renal failure: Qualified Codes: N17.9 - Acute kidney failure, unspecified (2) Diabetes: (3) GI bleed: Qualified Codes: K92.2 - Gastrointestinal hemorrhage, unspecified Geni Mccallum MD Sep 04, 2017 16:36
[2017-09-04] MEDS: cefTRIAXone INJ 1,000 MG in SODIUM CHLORIDE 0.9% INJ 100 ML IV SCH (17:00)
[2017-09-05] VITALS (8 sets, daily range): BP systolic 118–134; BP diastolic 62–74; PULSE 68–92; RESP 18–20; TEMP 97.2–98.1; O2SAT 94–98
--- NOTE | 2017-09-05 01:06 | RADRPT ---
EXAM DATE/TIME: 09/04/2017 20:19 [place] COMPARISON: No previous studies available for comparison. INDICATIONS : Anemia ORAL CONTRAST: Prescribed oral contrast ingested. RADIATION DOSE: 15.20 CTDIvol (mGy) MEDICAL HISTORY : Cardiovascular disease. Hypertension. Diverticulitis.Diabetes SURGICAL HISTORY : Colon resection. ENCOUNTER: Initial ACUITY: 1 day PAIN SCALE: 0/10 LOCATION: Abdomen TECHNIQUE: Volumetric scanning of the abdomen and pelvis was performed. Using automated exposure control and ad justment of the mA and/or kV according to patient size, radiation dose was kept as low as reasonably achievable to obtain optimal diagnostic quality images. DICOM format image data is available electro nically for review and comparison. FINDINGS: LOWER LUNGS: There are mild bilateral pleural effusions being worse on the right. There are suspected areas of con solidation or atelectasis of posterior lung bases. Extensive calcifications are seen in the southern ute co ronary arteries. Patient appears be status post sternotomy. LIVER: Homogeneous density without lesion. There is no dilation of the biliary tree. There are areas of inc reased density seen in the gallbladder likely related to small stones. Calcifications are seen in the central aspect of the liver likely related to hepatic artery calcifications. SPLEEN: Normal size without lesion. PANCREAS: Within normal limits. KIDNEYS: There low-density mass is seen in the kidneys bilaterally likely related to cysts although they are n onspecific on this noncontrast CT examination. The largest mass is seen in the left kidney measuring 4.6 cm in greatest diameter. Hydronephrosis is not seen. ADRENAL GLANDS: Within normal limits. VASCULAR: There is no aortic aneurysm. Extensive calcifications are seen throughout the arterial system. BOWEL/MESENTERY: The patient is status post partial colectomy. There is metallic density seen along the descending col on region likely from prior surgery. This region of the colon is not distended. ABDOMINAL WALL: Within normal limits. RETROPERITONEUM: There is no lymphadenopathy. BLADDER: No wall thickening or mass. REPRODUCTIVE: Prostatic calcifications are present. INGUINAL: There is no lymphadenopathy or hernia. MUSCULOSKELETAL: Within normal limits for patient age. CONCLUSION: 1. Status post partial colectomy. There is metallic density seen along the descending colon region li stacey from colonic surgery. This area the colon is not distended. It could be narrowed. There is rachel l distention of the ascending colon. Significant small bowel dilatation to suggest obstruction is not seen. 2. The cause of the patient's anemia is not seen. 3. Extensive arterial calcifications. 4. Multiple renal masses likely relate to cysts. Serg Meade MD on September 05, 2017 at 0:56 Board Certified Radiologist. This report was verified electronically.
[2017-09-05 07:22] LABS: HEMATOCRIT 27.8 % (39.0-51.0); MEAN CELL VOLUME 69.7 FL (80.0-100.0); MEAN CORPUSCULAR HEMOGLOBIN 21.2 PG (27.0-34.0); MEAN CORPUSCULAR HGB CONC 30.5 % (32.0-36.0); PLATELET COUNT 226 TH/MM3 (150-450); RED BLOOD COUNT 3.99 MIL/MM3 (4.50-5.90); RED CELL DISTRIBUTION WIDTH 25.5 % (11.6-17.2); WHITE BLOOD COUNT 6.8 TH/MM3 (4.0-11.0)
[2017-09-05 07:35] LABS: REVIEW FLAG FINAL
[2017-09-05 07:46] LABS: BICARBONATE 31.9 MEQ/L (21.0-32.0); MAGNESIUM 2.3 MG/DL (1.5-2.5); POTASSIUM 3.8 MEQ/L (3.5-5.1)
[2017-09-05] MEDS: INSULIN ASPART SUPPLEMENTAL SCALE SQ SCH ×2 (08:00→13:09)
[2017-09-05] MEDS: PRAVASTATIN SOD 40 MG TAB PO SCH (08:11)
[2017-09-05] MEDS: PANTOPRAZOLE SODIUM 40 MG VIAL IV PUSH SCH (08:11)
[2017-09-05] MEDS: METOPROLOL TARTRATE 50 MG TAB PO SCH (08:11)
[2017-09-05] MEDS: SODIUM CHLORIDE 0.9% FLUSH 10 ML FLUSH IV FLUSH SCH (08:12)
[2017-09-05] MEDS: TIMOLOL MALEATE 0.5% OPHT SOLN 5 ML BTL EACH EYE SCH (08:16)
[2017-09-05] MEDS: RESP: ALBUTEROL 2.5 MG/IPRATROPIUM 0.5 MG NEB (PRN) NEB (12:33)
--- NOTE | 2017-09-05 12:37 | HHI.GIFU ---
Subjective Remarks Resting in bed. Hoping to go home today. Tolerating diet. No n/v. No abdominal pain. No bleeding. (Heide Hargrove) Objective Vitals I&O Vital Signs Date Time Temp Pulse Resp B/P (MAP) Pulse Ox O2 Delivery O2 Flow Rate FiO2 09/05/17 08:00 92 09/05/17 07:32 98 Nasal Cannula 2.00 09/05/17 07:15 Room Air 09/05/17 04:00 2.00 09/05/17 04:00 98.0 77 18 134/74 (94) 97 09/05/17 00:00 97.2 72 18 119/71 (87) 96 09/05/17 00:00 Nasal Cannula 2.00 09/04/17 20:00 Nasal Cannula 2.00 09/04/17 20:00 97.8 76 18 123/72 (89) 97 09/04/17 20:00 97 Nasal Cannula 2.00 09/04/17 19:54 81 09/04/17 16:00 97.5 95 18 125/67 (86) 96 09/04/17 14:00 74 18 120/80 (93) 94 Nasal Cannula 2 I/O 09/04/17 09/04/17 09/04/17 09/05/17 09/05/17 09/05/17 07:00 15:00 23:00 07:00 15:00 23:00 Intake Total 4000 ml 600 ml 946 ml Output Total 5700 ml 675 ml 1115 ml Balance -1700 ml 600 ml 271 ml -1115 ml Intake Oral 4000 ml 946 ml Other 600 ml Output Urine Total 2700 ml 675 ml 1115 ml Stool Total 3000 ml # Bowel Movements 15 1 2 Laboratory Laboratory Tests Test 09/05/17 06:07 White Blood Count 6.8 Red Blood Count 3.99 Hemoglobin 8.5 Hematocrit 27.8 Mean Corpuscular Volume 69.7 Mean Corpuscular Hemoglobin 21.2 Mean Corpuscular Hemoglobin Concent 30.5 Red Cell Distribution Width 25.5 Platelet Count 226 Mean Platelet Volume 8.5 Blood Urea Nitrogen 23 Creatinine 1.39 Random Glucose 60 Calcium Level 8.8 Magnesium Level 2.3 Sodium Level 146 Potassium Level 3.8 Chloride Level 109 Carbon Dioxide Level 31.9 Anion Gap 5 Estimat Glomerular Filtration Rate 60 Imaging Last Impressions Abdomen/Pelvis CT 09/04/17 0000 Signed Impressions: Service Date/Time: Monday, September 04, 2017 20:19 - CONCLUSION: 1. Status post partial colectomy. There is metallic density seen along the descending colon region likely from colonic surgery. This area the colon is not distended. It could be narrowed. There is normal distention of the ascending colon. Significant small bowel dilatation to suggest obstruction is not seen. 2. The cause of the patient's anemia is not seen. 3. Extensive arterial calcifications. 4. Multiple renal masses likely relate to cysts. Serg Meade MD Renal Ultrasound 09/03/17 0000 Signed Impressions: Service Date/Time: Sunday, September 03, 2017 16:41 - CONCLUSION: 1. Mild hydronephrosis right kidney. 2. Bilateral renal cysts. Minimal free fluid. Jason Villatoro MD Chest X-Ray 09/03/17 0000 Signed Impressions: Service Date/Time: Sunday, September 03, 2017 11:34 - CONCLUSION: Small non-consolidative infiltrate at the left lung base. Ralph Landaverde MD Physical Exam HEENT: Normocephalic; atraumatic; no jaundice. CHEST: Expiratory wheezing CARDIAC: Regular rate and rhythm. Systolic murmur. ABDOMEN: Soft, nondistended, nontender; no hepatosplenomegaly; bowel sounds are present in all four quadrants. EXTREMITIES: 1 + LE edema SKIN: Normal; no rash; no jaundice. [employer]QUIPMENT MECH[employer]IC: No focal deficits; alert and oriented times three. (Heide Hargrove [facility]) Assessment and Plan Plan ASSESSMENT: - Severe anemia with Hemoccult positive stool. Pt on Eliquis (on hold) for Afib. Has had dark stool intermittently, but no other GI symptoms. Reports 3 week hx of worsening SOB. S/P EGD/Colonoscopy (09/04/17)----> 1. Duodenum normal -biopsy gastritis antrum-biopsy esophagitis distal esophagus 2. Retroflexed views revealed a hiatal hernia 1. Very spastic colon four polyps in descending -pedunculated- 9 mm,8 mm, 7 mm, 6 mm-hot snare polypectomy with complete removal after removing the latgest one-some bleeding was notrd- 2 clips applied at the base-no further bleeding All polyps were in same area of descending colon, few small diverticula in sigmoid 2. Retroflexed views revealed internal hemorrhoids 3. Retroflexed views revealed large internal hemorrhoids 4. Was performed 5. Revealed external hemorrhoids 6. Revealed a nodule prostate. Pathology pending. CT Scan abdomen and pelvis (09/05/17)---> S/P partial colectomy. There is metallic density seen along the descending colon region likely from colonic surgery. This area of the colon is not distended. It could be narrowed. There is normal distention of the ascending colon. Significant small bowel dilatation to suggest obstruction is not seen. The cause of the patient's anemia is not seen. Extensive arterial calcifications. Multiple renal masses likely relate to cysts. S/P 2 units PRBC. HH 8.5/27.8. - Hx atrial fibrillation. On eliquis at home. - Acute respiratory failure/CHF exacerbation. On CPAP at home. CXR 09/03/17-- Small non-consolidative infiltrate at the left lung base. - MARYLU. Creat 1.39 - CAD, DM, HTN, Hyperlipidemia per attending. PLAN: - [place] - Await pathology - PPI - Monitor HH - Transfuse as necessary - Okay to resume anticoagulation from GI standpoint - Rpt. Colonoscopy 1 year - FU AWILDA in 2 weeks - Further recommendations to follow based on results of above - PT seen and examined by Dr. Roldan and myself and this note is written on her behalf (Heide Hargrove) Heide Hargrove Sep 05, 2017 12:37 Smita Roldan MD Sep 05, 2017 19:42
--- NOTE | 2017-09-05 14:51 | HHI.NPPN ---
Subjective History of Present Illness 77 year old male with ARF/CKD Diabetes Objective Data Data Vital Signs Date Time Temp Pulse Resp B/P (MAP) Pulse Ox O2 Delivery O2 Flow Rate FiO2 09/05/17 12:00 97.9 68 20 119/62 (81) 98 09/05/17 12:00 97.8 83 20 133/73 (93) 94 09/05/17 08:00 92 09/05/17 08:00 97.8 83 20 133/73 (93) 94 09/05/17 07:32 98 Nasal Cannula 2.00 09/05/17 07:15 Room Air 09/05/17 04:00 2.00 09/05/17 04:00 98.0 77 18 134/74 (94) 97 09/05/17 00:00 97.2 72 18 119/71 (87) 96 09/05/17 00:00 Nasal Cannula 2.00 09/04/17 20:00 Nasal Cannula 2.00 09/04/17 20:00 97.8 76 18 123/72 (89) 97 09/04/17 20:00 97 Nasal Cannula 2.00 09/04/17 19:54 81 09/04/17 16:00 97.5 95 18 125/67 (86) 96 -: 09/05/17 0607 09/05/17 0607 Physical Exam General Appearance: Well Developed, Well Nourished Neck Neck Exam: Neck Supple Pulmonary Resp Exam: Clear Bilaterally, Breath Sounds Equal Cardiology CV Exam: Regular, Normal Sinus Rhythm Gastrointestinal/Abdomen GI Exam: Soft, Non-Tender, Bowel Sounds Present Integumentary Skin Exam: Clear Extremeties Extremities Exam: No Edema Assessment/Plan Problem List: (1) Acute renal failure ICD Codes: N17.9 - Acute kidney failure, unspecified Plan: Patient has been taking Goody's powder which has aspirin Patient had an endoscopy and colonoscopy no active bleeding seen a polyp was removed biopsy is pending Creatinine declined to 1.39 Likely due to prerenal azotemia and use of NSAID Follow-up as outpatient allergy to see as needed (2) CKD (chronic kidney disease) stage 3, GFR 30-59 ml/min ICD Codes: N18.3 - Chronic kidney disease, stage 3 (moderate) Status: Chronic Plan: Baseline creatinine is around 1.2-1.4 (3) Diabetes ICD Codes: E11.9 - Type 2 diabetes mellitus without complications Status: Chronic Plan: Continue to monitor blood glucose (4) GI bleed ICD Codes: K92.2 - Gastrointestinal hemorrhage, unspecified Status: Acute Plan: Going for endoscopy and possible colonoscopy (5) Hypertension ICD Codes: I10 - Essential (primary) hypertension Status: Acute Plan: Continue to monitor Problem Qualifiers (1) Acute renal failure: Qualified Codes: N17.9 - Acute kidney failure, unspecified (2) Diabetes: (3) GI bleed: Qualified Codes: K92.2 - Gastrointestinal hemorrhage, unspecified Geni Mccallum MD Sep 05, 2017 14:51
[2017-09-05] MEDS ORDERED: METO50TA PO (16:49)
[2017-09-05] MEDS ORDERED: APIX2.5T PO (16:49)
[2017-09-05] MEDS ORDERED: AMLO10 PO (16:49)
[2017-09-05] MEDS ORDERED: LOVA40TA PO (16:49)
--- NOTE | 2017-09-05 16:51 | HHI.DCPOC ---
Discharge Care Plan Diagnosis: (1) CKD (chronic kidney disease) stage 3, GFR 30-59 ml/min (2) Hypertension (3) Diabetes (4) Acute renal failure (5) Symptomatic anemia (6) GI bleed (7) Acute on chronic diastolic congestive heart failure, NYHA class 4 (8) Acute on chronic diastolic heart failure (9) S/P CABG x 3 Goals to Promote Your Health * To prevent worsening of your condition and complications * To maintain your health at the optimal level Directions to Meet Your Goals Take your medications as prescribed Follow your dietary instruction Follow activity as directed Keep your appointments as scheduled Take your immunizations and boosters as scheduled If your symptoms worsen call your PCP, if no PCP go to Urgent Care Center or Emergency Room Smoking is Dangerous to Your Health. Avoid second hand smoke Call the 24-hour hour crisis hotline for domestic abuse at Ranjeet Mullins MD Sep 05, 2017 16:51
--- NOTE | 2017-09-05 16:55 | HHI.DS ---
Discharge Summary Admission Date Aug 31, 2017 at 22:59 Discharge Date: Sep 05, 2017 Admitting Diagnosis GI bleed, symptomatic anemia (1) S/P CABG x 3 ICD Code: Z95.1 - Presence of aortocoronary bypass graft Status: Acute (2) Acute on chronic diastolic heart failure ICD Code: I50.33 - Acute on chronic diastolic (congestive) heart failure (3) CKD (chronic kidney disease) stage 3, GFR 30-59 ml/min ICD Code: N18.3 - Chronic kidney disease, stage 3 (moderate) Status: Chronic (4) Hypertension ICD Code: I10 - Essential (primary) hypertension Status: Acute (5) Diabetes ICD Code: E11.9 - Type 2 diabetes mellitus without complications Status: Chronic (6) Acute renal failure ICD Code: N17.9 - Acute kidney failure, unspecified (7) Symptomatic anemia ICD Code: D64.9 - Anemia, unspecified Status: Acute (8) GI bleed ICD Code: K92.2 - Gastrointestinal hemorrhage, unspecified Status: Acute (9) Obstructive sleep apnea ICD Code: G47.33 - Obstructive sleep apnea (adult) (pediatric) Status: Acute (10) Atrial fibrillation ICD Code: I48.91 - Unspecified atrial fibrillation Status: Acute Procedures Endoscopy/ colonoscopy 09/04 Brief History - From Admission 77-year-old male with past medical history significant for coronary artery disease, status post CABG 3, hypertension, hyperlipidemia and type 2 diabetes mellitus presents with a three-week history of increasing shortness of breath. The patient was seen in the emergency department 3 weeks ago and diagnosed with viral bronchitis. He states his symptoms have been worsening since that time. He followed with his collar fuser, Dr. Gillespie, who placed him on albuterol and performed PFTs. Denies fever/chills. On evaluation in the emergency department , patient's chest x-ray showed subsegmental atelectasis at the lung bases and cardiomegaly. Patient's lab work was significant for an H/H of 6.6/21.6. Creatinine 2.16 (baseline 1.4). Patient Hemoccult positive in the ED. CBC/BMP: 09/05/17 0607 09/05/17 0607 Significant Findings Laboratory Tests Test 09/03/17 06:30 09/03/17 12:32 09/04/17 06:25 09/04/17 08:15 White Blood Count 11.4 TH/MM3 (4.0-11.0) Red Blood Count 3.90 MIL/MM3 (4.50-5.90) 4.24 MIL/MM3 (4.50-5.90) Hemoglobin 8.2 GM/DL (13.0-17.0) 9.1 GM/DL (13.0-17.0) Hematocrit 27.3 % (39.0-51.0) 29.5 % (39.0-51.0) Mean Corpuscular Volume 70.0 FL (80.0-100.0) 69.7 FL (80.0-100.0) Mean Corpuscular Hemoglobin 21.0 PG (27.0-34.0) 21.4 PG (27.0-34.0) Mean Corpuscular Hemoglobin Concent 29.9 % (32.0-36.0) 30.7 % (32.0-36.0) Red Cell Distribution Width 25.0 % (11.6-17.2) 25.0 % (11.6-17.2) Blood Urea Nitrogen 39 MG/DL (7-18) 29 MG/DL (7-18) Creatinine 2.08 MG/DL (0.60-1.30) 1.65 MG/DL (0.60-1.30) Random Glucose 159 MG/DL (74-106) 115 MG/DL (74-106) Magnesium Level 2.8 MG/DL (1.5-2.5) Chloride Level 109 MEQ/L (98-107) Estimat Glomerular Filtration Rate 38 ML/MIN (>89) 49 ML/MIN (>89) Urine Mucus FEW /lpf (OCC) Prothrombin Time 12.7 SEC (9.8-11.6) Urine Random Total Protein 33 MG/DL (0-11.8) Urine Protein/Creatinine Ratio 0.87 (0.00-0.14) Test 09/05/17 06:07 Red Blood Count 3.99 MIL/MM3 (4.50-5.90) Hemoglobin 8.5 GM/DL (13.0-17.0) Hematocrit 27.8 % (39.0-51.0) Mean Corpuscular Volume 69.7 FL (80.0-100.0) Mean Corpuscular Hemoglobin 21.2 PG (27.0-34.0) Mean Corpuscular Hemoglobin Concent 30.5 % (32.0-36.0) Red Cell Distribution Width 25.5 % (11.6-17.2) Blood Urea Nitrogen 23 MG/DL (7-18) Creatinine 1.39 MG/DL (0.60-1.30) Random Glucose 60 MG/DL (74-106) Sodium Level 146 MEQ/L (136-145) Chloride Level 109 MEQ/L (98-107) Estimat Glomerular Filtration Rate 60 ML/MIN (>89) Imaging Last Impressions Abdomen/Pelvis CT 09/04/17 0000 Signed Impressions: Service Date/Time: Monday, September 04, 2017 20:19 - CONCLUSION: 1. Status post partial colectomy. There is metallic density seen along the descending colon region likely from colonic surgery. This area the colon is not distended. It could be narrowed. There is normal distention of the ascending colon. Significant small bowel dilatation to suggest obstruction is not seen. 2. The cause of the patient's anemia is not seen. 3. Extensive arterial calcifications. 4. Multiple renal masses likely relate to cysts. Serg Meade MD Renal Ultrasound 09/03/17 0000 Signed Impressions: Service Date/Time: Sunday, September 03, 2017 16:41 - CONCLUSION: 1. Mild hydronephrosis right kidney. 2. Bilateral renal cysts. Minimal free fluid. Jason Villatoro MD Chest X-Ray 09/03/17 0000 Signed Impressions: Service Date/Time: Sunday, September 03, 2017 11:34 - CONCLUSION: Small non-consolidative infiltrate at the left lung base. Ralph Landaverde MD PE at Discharge GENERAL: Resting comfortably. SKIN: No rashes, ecchymoses or lesions. Cool and dry. Surgical scars noted on chest and abdomen. HEAD: Atraumatic. Normocephalic. No temporal or scalp tenderness. EYES: Pupils equal round and reactive. Extraocular motions intact. No scleral icterus. No injection or drainage. ENT: Nose without bleeding, purulent drainage or septal hematoma. Throat without erythema, tonsillar hypertrophy or exudate. Uvula midline. Airway patent. NECK: Trachea midline. No JVD or lymphadenopathy. Supple, nontender, no meningeal signs. CARDIOVASCULAR: Regular rate and rhythm. Grade 2 systolic murmur appreciated. RESPIRATORY: Crackles appreciated bilaterally. GASTROINTESTINAL: Abdomen soft, non-tender, nondistended. No hepato-splenomegaly , or palpable masses. No guarding. MUSCULOSKELETAL: 1+ lower extremity edema noted. NEUROLOGICAL: Awake and alert. Cranial nerves II through XII intact. Motor and sensory grossly within normal limits. Normal speech. PSYCH: Mood and affect appropriate. Pt Condition on Discharge: Stable Discharge Disposition: Discharge Home Discharge Instructions DIET: Follow Instructions for: Diabetic Diet Activities you can perform: Regular-No Restrictions Activities to Avoid: Prolonged Standing, Strenuous Activity Ranjeet Mullins MD Sep 05, 2017 16:55
[2017-09-05 18:00] LABS: ALBUMIN SPE 4.17 GM/DL (3.50-5.00); ALPHA 1 GLOBULIN 0.22 GM/DL (0.11-0.29); ALPHA 2 GLOBULIN 0.75 GM/DL (0.22-1.00); BETA GLOBULINS (SPE) 1.15 GM/DL (0.53-1.03)
== END 2017-09-05 18:09 | disposition home or self-care (01) | DRG 377 ==
LOC: NEPE 20:47 → NEDA 22:59 → N04A 09-01 00:49
PROVIDERS: ADMIT Hospitalist; ATTEND Hospitalist
PROC: 30233N1 Transfusion of Nonautologous Red Blood Cells into Peripheral Vein, Percutaneous Approach (ICD-10-PCS; 2017-09-01)
PROC: 0DB98ZX Excision of Duodenum, Via Natural or Artificial Opening Endoscopic, Diagnostic (ICD-10-PCS; 2017-09-04)
PROC: 0DB68ZX Excision of Stomach, Via Natural or Artificial Opening Endoscopic, Diagnostic (ICD-10-PCS; 2017-09-04)
PROC: 0DB38ZX Excision of Lower Esophagus, Via Natural or Artificial Opening Endoscopic, Diagnostic (ICD-10-PCS; 2017-09-04)
PROC: 0DBM8ZX Excision of Descending Colon, Via Natural or Artificial Opening Endoscopic, Diagnostic (ICD-10-PCS; principal; 2017-09-04 12:45)
DX: K92.2 Gastrointestinal hemorrhage, unspecified (principal); I50.33 Acute on chronic diastolic (congestive) heart failure; J96.00 Acute respiratory failure, unspecified whether with hypoxia or hypercapnia; N17.9 Acute kidney failure, unspecified; J98.11 Atelectasis; I13.0 Hypertensive heart and chronic kidney disease with heart failure and stage 1 through stage 4 chronic kidney disease, or unspecified chronic kidney disease; D64.9 Anemia, unspecified; I48.91 Unspecified atrial fibrillation; E78.5 Hyperlipidemia, unspecified; K63.5 Polyp of colon; K20.9 Esophagitis, unspecified; K29.70 Gastritis, unspecified, without bleeding; K44.9 Diaphragmatic hernia without obstruction or gangrene; K58.9 Irritable bowel syndrome, unspecified; K64.4 Residual hemorrhoidal skin tags; K64.8 Other hemorrhoids; K57.30 Diverticulosis of large intestine without perforation or abscess without bleeding; N40.2 Nodular prostate without lower urinary tract symptoms; I25.10 Atherosclerotic heart disease of native coronary artery without angina pectoris; M19.90 Unspecified osteoarthritis, unspecified site; F40.240 Claustrophobia; J40 Bronchitis, not specified as acute or chronic; N18.3 Chronic kidney disease, stage 3 (moderate); E11.22 Type 2 diabetes mellitus with diabetic chronic kidney disease; G47.33 Obstructive sleep apnea (adult) (pediatric); D72.829 Elevated white blood cell count, unspecified; Z23 Encounter for immunization; Z79.02 Long term (current) use of antithrombotics/antiplatelets; Z95.1 Presence of aortocoronary bypass graft; Z87.891 Personal history of nicotine dependence; Z96.652 Presence of left artificial knee joint; J44.9 Chronic obstructive pulmonary disease, unspecified
CPT/HCPCS: 36430; 71010; 74176; 76775; 80048; 81001; 82550; 82552; 82570; 82948; 83036; 83735; 83880; 84156; 84165; 84300; 84484; 85025; 85027; 85610; 85730; 86038; 86850; 86900; 86901; 86920; 87205; 88305; 88312; 90686; 90732; 93005; 94620; 94640; 94664; 96374; 96375; C9113; J0456; J0696; J1815; J1940; J2930; J7030; J7050; P9016; Q2038; Q9963

== ENCOUNTER 2017-09-13 15:56 | Emergency (ER) | payer MEDICARE, OTHER ==
[~2017-09-13] VITALS: Ht 167.6 cm; Wt 98.2 kg
[2017-09-13 15:58] VITALS: BP 143/69; PULSE 68; RESP 18; TEMP 98.6; O2SAT 93
[2017-09-13 18:41] LABS: APTT (PATIENT) 27.2 SEC (24.3-30.1); INTERNATIONAL NORMALIZED RATIO 1.1 RATIO; PROTHROMBIN TIME - PATIENT 11.3 SEC (9.8-11.6)
[2017-09-13 19:06] LABS: BICARBONATE 32.8 MEQ/L (21.0-32.0); POTASSIUM 4.9 MEQ/L (3.5-5.1)
[2017-09-13] MEDS ORDERED: [UNRECOGNIZED DRUG - REMARK] PO (20:29)
--- NOTE | 2017-09-13 20:54 | PD ---
HPI Chief Complaint: Diabetic Time Seen by Provider: 20:31 Travel History International Travel<30 days: No Contact w/Intl Traveler<30days: No Traveled to known affect area: No History of Present Illness HPI 77-year-old male presents to the emergency department for evaluation of hypoglycemia that he states has been ongoing since last night. He states the lowest it has been is 48. Upon review of medications, does not appear that he is on a diabetic medications at this time. He states he has not been really eating today. He denies any other complaints. No chest pain. No shortness of breath. No headaches. No fevers or chills. No abdominal pain. No nausea, vomiting, diarrhea. Patient denies eating any other medications. No exacerbating or alleviating factors. Severity is moderate. Patient has a past medical history significant for coronary artery disease, status post CABG 3, hypertension, hyperlipidemia and type 2 diabetes mellitus. PFSH Past Medical History Arthritis: Yes Asthma: No Atrial Fibrillation: Yes Anxiety: No Depression: No Heart Rhythm Problems: Yes Cancer: No Cardiovascular Problems: Yes (HTN) High Cholesterol: Yes Chemotherapy: No Congestive Heart Failure: Yes (new this visit) COPD: No Diabetes: Yes Patient Takes Glucophage: No Diminished Hearing: No Diverticulitis: Yes Endocrine: Yes Genitourinary: Yes Hypertension: Yes Immune Disorder: No Implanted Vascular Access Dvce: No Musculoskeletal: Yes Neurologic: Yes Psychiatric: Yes (CLAUSTROPHOBIA) Reproductive: No Respiratory: Yes Immunizations Current: No Radiation Therapy: No Sleep Apnea: Yes (CPAP) Thyroid Disease: No Tetanus Vaccination: Unknown Past Surgical History Abdominal Surgery: Yes (COLON RESECTION R/T DIVERTICULITIS ) Cardiac Surgery: Yes (TRIPLE BYPASS) Joint Replacement: Yes (LEFT KNEE) Other Surgery: Yes Social History Alcohol Use: No Tobacco Use: No Substance Use: No Allergies-Medications (Allergen,Severity, Reaction): Coded Allergies: codeine (Unverified Allergy, Severe, 08/31/17) *MDRO Multi-Drug Resistant Organism (Verified Adverse Reaction, Unknown, 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 SKIN: Focused skin assessment warm/dry. HEAD: Normocephalic. Atraumatic. EYES: No scleral icterus. No injection or drainage. NECK: Supple, trachea midline. No JVD or lymphadenopathy. CARDIOVASCULAR: Regular rate and rhythm without murmurs, gallops, or rubs. RESPIRATORY: Breath sounds equal bilaterally. No accessory muscle use. Lungs sounds are clear to auscultation GASTROINTESTINAL: Abdomen soft, non-tender, nondistended. MUSCULOSKELETAL: No cyanosis, or edema. BACK: Nontender without obvious deformity. No CVA tenderness. Data Data Last Documented VS Vital Signs Date Time Temp Pulse Resp B/P (MAP) Pulse Ox O2 Delivery O2 Flow Rate FiO2 09/13/17 15:58 98.6 68 18 143/69 (93) 93 Room Air Orders Orders Complete Blood Count With Diff (09/13/17 16:26) Basic Metabolic Panel (Bmp) (09/13/17 16:26) Coag Profile (09/13/17 16:26) B-Type Natriuretic Peptide (09/13/17 16:26) Electrocardiogram (09/13/17 ) Chest, Single Ap (09/13/17 ) Diet Diabetic (09/14/17 Dinner) Blood Glucose (09/13/17 21:50) Urinalysis - C+S If Indicated (09/13/17 22:33) Labs Laboratory Tests Test 09/13/17 17:34 09/13/17 21:40 Prothrombin Time 11.3 SEC Prothromb Time International Ratio 1.1 RATIO Activated Partial Thromboplast Time 27.2 SEC Blood Urea Nitrogen 29 MG/DL Creatinine 1.89 MG/DL Random Glucose 69 MG/DL Calcium Level 8.7 MG/DL Sodium Level 139 MEQ/L Potassium Level 4.9 MEQ/L Chloride Level 102 MEQ/L Carbon Dioxide Level 32.8 MEQ/L Anion Gap 4 MEQ/L Estimat Glomerular Filtration Rate 42 ML/MIN B-Type Natriuretic Peptide 519 PG/ML White Blood Count 8.9 TH/MM3 Red Blood Count 4.34 MIL/MM3 Hemoglobin 9.0 GM/DL Hematocrit 29.8 % Mean Corpuscular Volume 68.8 FL Mean Corpuscular Hemoglobin 20.8 PG Mean Corpuscular Hemoglobin Concent 30.2 % Red Cell Distribution Width 25.7 % Platelet Count 260 TH/MM3 Mean Platelet Volume 9.0 FL Neutrophils (%) (Auto) 67.3 % Lymphocytes (%) (Auto) 15.1 % Monocytes (%) (Auto) 13.8 % Eosinophils (%) (Auto) 3.1 % Basophils (%) (Auto) 0.7 % Neutrophils # (Auto) 6.0 TH/MM3 Lymphocytes # (Auto) 1.3 TH/MM3 Monocytes # (Auto) 1.2 TH/MM3 Eosinophils # (Auto) 0.3 TH/MM3 Basophils # (Auto) 0.1 TH/MM3 CBC Comment AUTO DIFF MDM Medical Decision Making Medical Screen Exam Complete: Yes Emergency Medical Condition: Yes Medical Record Reviewed: Yes Interpretation(s) chest x-ray - CONCLUSION: 1. Minimal bibasilar patchiness consistent with atelectasis and/or infiltrate. Clinical correlation is recommended. 2. Cardiomegaly. Differential Diagnosis Hypoglycemia versus electrolyte abnormality versus dehydration Narrative Course 77-year-old male presents to the emergency department for evaluation of hypoglycemia. Upon review of medications, he is not on any diabetic medications. He denies any other complaints. CBC, BMP, EKG, BNP were ordered in triage. Patient provided orange juice and addis crackers. He'll be given a diet. Chest x-ray is also ordered and pending. BMP shows BUN of 29, creatinine 1.89. Glucose is 69. BNP is 519. Chest x-ray shows Minimal bibasilar patchiness consistent with atelectasis and/or infiltrate. Clinical correlation is recommended; Cardiomegaly. CBC, UA are pending. Dr. Wing will follow and disposition patient. Jocelyn Roy Sep 13, 2017 20:54
--- NOTE | 2017-09-13 22:08 | RADRPT ---
EXAM DATE/TIME: 09/13/2017 21:12 [facility] COMPARISON: CHEST SINGLE AP, September 03, 2017, 11:34. INDICATIONS : Shortness of breath. High blood pressure. MEDICAL HISTORY : Hypercholesterolemia. Hypertension Congestive heart failure. AFIB. SURGICAL HISTORY : CABG. ENCOUNTER: Initial ACUITY: 1 day PAIN SCORE: 0/10 LOCATION: Bilateral chest FINDINGS: The heart remains enlarged. Minimal bibasilar patchiness is noted consistent with atelectasis and/or infiltrate. Clinical correlation is recommended. CONCLUSION: 1. Minimal bibasilar patchiness consistent with atelectasis and/or infiltrate. Clinical correlation i s recommended. 2. Cardiomegaly. Ephraim Frankel MD on September 13, 2017 at 22:05 Board Certified Radiologist. This report was verified electronically.
[2017-09-13 22:24] LABS: BASOPHIL # 0.1 TH/MM3 (0-0.2); BASOPHIL % 0.7 % (0.0-2.0); EOSINOPHIL # 0.3 TH/MM3 (0-0.4); EOSINOPHIL % 3.1 % (0.0-4.0); HEMATOCRIT 29.8 % (39.0-51.0); LYMPH % 15.1 % (9.0-44.0); LYMPHOCYTE # 1.3 TH/MM3 (1.0-4.8); MEAN CELL VOLUME 68.8 FL (80.0-100.0); MEAN CORPUSCULAR HEMOGLOBIN 20.8 PG (27.0-34.0); MEAN CORPUSCULAR HGB CONC 30.2 % (32.0-36.0); MONO % 13.8 % (0.0-8.0); NEUT % 67.3 % (16.0-70.0); PLATELET COUNT 260 TH/MM3 (150-450); RED BLOOD COUNT 4.34 MIL/MM3 (4.50-5.90); RED CELL DISTRIBUTION WIDTH 25.7 % (11.6-17.2); WHITE BLOOD COUNT 8.9 TH/MM3 (4.0-11.0)
[2017-09-13 22:27] LABS: HEMO FLAGS AUTO DIFF
[2017-09-13 22:42] VITALS: BP 120/68; PULSE 82; RESP 16; O2SAT 98
[2017-09-13 22:52] LABS: BLOOD, URINE NEG (NEG); GLUCOSE,URINE NEG (NEG); KETONE, URINE NEG (NEG); NITRITE,URINE NEG (NEG); SQUAMOUS EPITHELIAL CELL URINE <1 /hpf (0-5); URINE COLOR LIGHT-YELLOW (YELLW/STRAW)
[2017-09-13 23:04] LABS: COMMENT (UR) CULT NOT INDICATED; CULTURE IF INDICATED CULT NOT INDICATED
[2017-09-13 23:17] LABS: ACANTHOCYTES OCC (NORMAL); OVALOCYTES 1+ (NORMAL); PLATELET ESTIMATE SMEAR NORMAL (NORMAL); PLATELET MORPHOLOGY NORMAL (NORMAL); SCAN/DIFF AUTO DIFF CONFIRMED
[2017-09-14] MEDS ORDERED: ZOFR4TAB PO (00:58)
--- NOTE | 2017-09-14 00:58 | PD ---
Physical Exam Date Seen by Provider: Sep 13, 2017 Time Seen by Provider: 23:00 Narrative pt has had decrease PO intake here in ER BGM stable 75 . 76 ready for discharge Data Data Last Documented VS Vital Signs Date Time Temp Pulse Resp B/P (MAP) Pulse Ox O2 Delivery O2 Flow Rate FiO2 09/14/17 01:14 09/13/17 22:42 82 16 98 Room Air 09/13/17 15:58 98.6 Orders Orders Complete Blood Count With Diff (09/13/17 16:26) Basic Metabolic Panel (Bmp) (09/13/17 16:26) Coag Profile (09/13/17 16:26) B-Type Natriuretic Peptide (09/13/17 16:26) Electrocardiogram (09/13/17 ) Chest, Single Ap (09/13/17 ) Blood Glucose (09/13/17 21:50) Urinalysis - C+S If Indicated (09/13/17 22:33) Blood Glucose (09/13/17 23:24) Pathologist Smear Review (09/13/17 23:27) Ed Discharge Order (09/14/17 00:59) Labs Laboratory Tests Test 09/13/17 17:34 09/13/17 21:40 09/13/17 22:38 Prothrombin Time 11.3 SEC Prothromb Time International Ratio 1.1 RATIO Activated Partial Thromboplast Time 27.2 SEC Blood Urea Nitrogen 29 MG/DL Creatinine 1.89 MG/DL Random Glucose 69 MG/DL Calcium Level 8.7 MG/DL Sodium Level 139 MEQ/L Potassium Level 4.9 MEQ/L Chloride Level 102 MEQ/L Carbon Dioxide Level 32.8 MEQ/L Anion Gap 4 MEQ/L Estimat Glomerular Filtration Rate 42 ML/MIN B-Type Natriuretic Peptide 519 PG/ML White Blood Count 8.9 TH/MM3 Red Blood Count 4.34 MIL/MM3 Hemoglobin 9.0 GM/DL Hematocrit 29.8 % Mean Corpuscular Volume 68.8 FL Mean Corpuscular Hemoglobin 20.8 PG Mean Corpuscular Hemoglobin Concent 30.2 % Red Cell Distribution Width 25.7 % Platelet Count 260 TH/MM3 Mean Platelet Volume 9.0 FL Neutrophils (%) (Auto) 67.3 % Lymphocytes (%) (Auto) 15.1 % Monocytes (%) (Auto) 13.8 % Eosinophils (%) (Auto) 3.1 % Basophils (%) (Auto) 0.7 % Neutrophils # (Auto) 6.0 TH/MM3 Lymphocytes # (Auto) 1.3 TH/MM3 Monocytes # (Auto) 1.2 TH/MM3 Eosinophils # (Auto) 0.3 TH/MM3 Basophils # (Auto) 0.1 TH/MM3 CBC Comment AUTO DIFF Differential Comment AUTO DIFF CONFIRMED Platelet Estimate NORMAL Platelet Morphology Comment NORMAL Target Cells Ovalocytes 1+ Acanthocytes OCC Blood Smear Pathologist Review Urine Color LIGHT-YELLOW Urine Turbidity CLEAR Urine pH 7.0 Urine Specific [place] 1.012 Urine Protein TRACE mg/dL Urine Glucose (UA) NEG mg/dL Urine Ketones NEG mg/dL Urine Occult Blood NEG Urine Nitrite NEG Urine Bilirubin NEG Urine Urobilinogen LESS THAN 2.0 MG/DL Urine Leukocyte Esterase NEG Urine WBC 1 /hpf Urine Squamous Epithelial Cells <1 /hpf Microscopic Urinalysis Comment CULT NOT INDICATED MDM Supervised Visit with [place]: Yes Diagnosis Primary Impression: Hypoglycemia Patient Instructions: General Instructions, Hypoglycemia in a Person with Diabetes (ED) Scripts Ondansetron (Zofran) 4 Mg Tab 4 MG PO Q6HR Y for NAUSEA OR VOMITING, #10 TAB 0 Refills Prov: José Manuel Wing MD 09/14/17 Disposition: 01 DISCHARGE HOME Condition: Good José Manuel Wing MD Sep 14, 2017 00:58
--- NOTE | 2017-09-14 17:49 | EKG ---
Date Performed: 09/13/2017 Time Performed: 17:42:18 PTAGE: 77 years EKG: ATRIAL FIBRILLATION Nonspecific ST-T wave changes. ABNORMAL ECG PREVIOUS TRACING : 08/31/2017 21.41.09 DOCTOR: Ben Murdock Interpretating Date/Time 09/18/2017 07:45:54
== END 2017-09-14 01:16 | disposition home or self-care (01) ==
LOC: NEPC 15:56
DX: E11.649 Type 2 diabetes mellitus with hypoglycemia without coma (principal); E78.00 Pure hypercholesterolemia, unspecified; I11.0 Hypertensive heart disease with heart failure; I50.9 Heart failure, unspecified
CPT/HCPCS: 71010; 80048; 81001; 83880; 85025; 85060; 85610; 85730; 93005; 99285